=== PATIENT | male | born 1940 | race Caucasian/White ===

== ENCOUNTER → 2018-01-28 12:37 | Outpatient (CLI) | payer MEDICARE, OTHER, SELFPAY ==
--- NOTE | 2018-01-28 12:38 | DI.CT.S_ITS ---
PROCEDURE: CT CHEST WO CON INDICATIONS: 77-year-old male with stage II colon cancer. TECHNIQUE: Noncontrast 5 mm thick sections acquired from the pulmonary apices to the posterior costophrenic angles. 7 mm thick coronal and sagittal MIP reformats were then acquired. For radiation dose reduction, the following was used: automated exposure control, adjustment of mA and/or kV according to patient size. COMPARISON: [facility], CR, CHEST 2 VIEW, 12/01/2017, 4:50. [facility], CT, ABDOMEN/PELVIS WITH CONTRAST, 11/28/2017, 8:06. FINDINGS: Image quality: Excellent. Lungs and pleura: No acute air space opacities. Previously noted posterior right lung base pneumonia has resolved. No pleural effusions or pneumothorax. Central and peripheral airways are patent and normal in caliber. Mediastinum: Heart size is normal. No pericardial effusion. No mediastinal adenopathy by size criteria. Thoracic aorta and central pulmonary arteries are normal in size. Esophagus is normal in caliber. No hiatal hernia. Bones and chest wall: No suspicious bony lesions. No vertebral body compression fractures. There is mid and lower thoracic spine disc degeneration. There is moderate bilateral glenohumeral joint degeneration. No axillary or supraclavicular adenopathy by size criteria. There is asymmetric right supraspinatus and infraspinatus muscle atrophy. Thyroid gland is normal in overall size. Abdomen: Visualized upper abdominal solid organs and bowel loops appear normal in the absence of contrast. IMPRESSION: 1. No findings to suggest thoracic colon cancer metastases. 2. Interval resolution of posterior right lung base pneumonia. 3. Right supraspinatus and infraspinatus muscle atrophy, consistent with chronic full thickness rotator cuff tendon tears. Dictated by: Jeremiah Engle M.D. on 01/28/2018 at 13:21 Approved by: Jeremiah Engle M.D. on 01/28/2018 at 13:30
== END ==
PROVIDERS: Family Provider Internal Medicine; PCP Internal Medicine; Visit Provider Internal Medicine Hematology & Oncology
DX: C18.9 Malignant neoplasm of colon, unspecified (principal)
CPT/HCPCS: 71250

== ENCOUNTER → 2018-06-06 11:00 | Outpatient (CLI) | payer MEDICARE, OTHER, SELFPAY ==
[2018-06-06 11:18] LABS: Add Manual Diff / Slide Review NO; Basophils Percent Auto 0.8 % (0-2); Eosinophils Percent Auto 1.5 % (2-4); Hematocrit 42.4 % (41-53); Hemoglobin 13.9 g/dL (13.5-17.5); Lymphocytes Percent Auto 24.2 % (25-40); Mean Corpuscular HGB Conc 32.9 % (30-36); Mean Corpuscular Hemoglobin 29.8 PG (26-34); Mean Corpuscular Volume 90.7 fL (80-100); Monocytes Percent Auto 8.8 % (3-14); Neutrophils Absolute Auto 5200 /uL (3000-5900); Neutrophils Percent Auto 64.7 % (50-75); Platelet Count 208 X10^3/uL (150-400); Red Blood Cell Count 4.67 X10^6/uL (4.5-5.9); Red Cell Distribution Width 18.6 % (11.6-14.8)
[2018-06-06 11:27] LABS: Alanine Aminotransferase 36 IU/L (21-72); Albumin 4.4 g/dL (3.5-5.0); Albumin Globulin Ratio 1.7 (1.0-2.8); Alkaline Phosphatase 105 U/L (38-126); Aspartate Aminotransferase 38 IU/L (17-59); BUN Creatinine Ratio 23.8 (6-22); Bilirubin Total 0.6 mg/dL (0.2-1.3); Blood Urea Nitrogen 19 mg/dL (9-20); Calcium 9.1 mg/dL (8.4-10.2); Carbon Dioxide 26 mmol/L (22-32); Chloride 101 mmol/L (98-107); Estimated Glomerular Filt Rate > 60.0 mL/min (>60); Globulin 2.6 g/dL (1.7-4.1); Glucose 93 mg/dL (80-110); HEMOLYSIS < 15 (0-50); Potassium 4.9 mmol/L (3.4-5.1); Sodium 137 mmol/L (137-145)
[2018-06-06 11:38] LABS: HEMOLYSIS < 15 (0-50); Iron 54 ug/dL (49-181)
[2018-06-06 11:49] LABS: Percent Iron Saturation 15 % (20-50); Total Iron Binding Capacity 364 ug/dL (261-462); Transferrin 298 mg/dL (206-381)
[2018-06-06 11:58] LABS: Carcinoembryonic Antigen 2.2 ng/mL (0.1-3.0)
[2018-06-06 12:02] LABS: Ferritin 15.9 ng/mL (17.9-464)
== END ==
PROVIDERS: Family Provider Internal Medicine; PCP Internal Medicine
DX: C18.0 Malignant neoplasm of cecum (principal); D64.9 Anemia, unspecified; I48.91 Unspecified atrial fibrillation; Z86.718 Personal history of other venous thrombosis and embolism
CPT/HCPCS: 36415; 80053; 82378; 82728; 83540; 83550; 85025

== ENCOUNTER → 2018-10-29 14:18 | Outpatient (CLI) | payer MEDICARE, OTHER, SELFPAY ==
[2018-10-29 15:34] LABS: Blood Urea Nitrogen 20 mg/dL (9-20); Calcium 9.3 mg/dL (8.4-10.2); Carbon Dioxide 28 mmol/L (22-32); Chloride 100 mmol/L (98-107); Estimated Glomerular Filt Rate > 60.0 mL/min (>60); Glucose 125 mg/dL (80-110); HEMOLYSIS < 15 (0-50); Potassium 4.6 mmol/L (3.4-5.1); Sodium 136 mmol/L (137-145)
== END ==
PROVIDERS: Family Provider Internal Medicine; PCP Internal Medicine; Visit Provider Surgery
DX: C18.0 Malignant neoplasm of cecum (principal)
CPT/HCPCS: 36415; 80048

== ENCOUNTER → 2018-11-03 09:30 | Outpatient (CLI) | payer MEDICARE, OTHER, SELFPAY ==
--- NOTE | 2018-11-03 | DI.CT.S_ITS ---
PROCEDURE: CT CHEST ABD PEL W CON INDICATIONS: Malignant neoplasm of cecum TECHNIQUE: After the administration of oral and intravenous contrast, 5 mm thick sections acquired from the lung apices to the symphysis. 5 mm coronal and sagittal reformats were performed, with additional 7 mm coronal MIP reformats through the lungs. For radiation dose reduction, the following was used: automated exposure control, adjustment of mA and/or kV according to patient size. COMPARISON: [facility], CT, CT CHEST WO CON, 01/28/2018, 12:35. [facility], CT, ABDOMEN/PELVIS WITH CONTRAST, 11/28/2017, 8:06. [facility], CT, ABDOMEN/PELVIS WITH CONTRAST, 11/14/2017, 14:31. FINDINGS: Image quality: Excellent. CHEST: Lungs and pleura: No acute consolidation. Scattered subsegmental atelectasis and/or scarring. No pleural effusions or pneumothorax. Central and peripheral airways appear patent and normal in caliber. There is mild central bronchial wall thickening suggesting reactive airways disease versus nonspecific bronchitis Mediastinum: Heart size is enlarged. Coronary artery calcifications are present. No pericardial effusion. No mediastinal or hilar adenopathy by size criteria. Thoracic aorta and central pulmonary arteries are normal in size. Esophagus is normal in caliber. No hiatal hernia. Chest wall: No axillary or supraclavicular adenopathy by size criteria. Thyroid gland negative. ABDOMEN: Solid organs: In the inferior liver tip on image 74 series 2, ill-defined 1 x 2 cm hypodense region is seen, which appears new. Gallbladder unremarkable. Biliary system is non dilated. Redemonstration of hypodense or cystic region in the body of the pancreas currently 1.3 x 0.9 cm nonspecific although technically indolent pancreatic cystic neoplasm cannot be excluded recommend continued observation on subsequent studies. Spleen is normal in size and enhancement. No adrenal nodules. No hydronephrosis. Bilateral renal cortical scarring/atrophy.. Peritoneum and bowel: Bowel loops demonstrate normal wall thickness and caliber. No free fluid or air. Incidentally noted right sided bowel surgical anastomosis. Nodes and vessels: No retroperitoneal or mesenteric adenopathy by size criteria. Aorta and inferior vena cava are normal in size. Miscellaneous: Interval development of left paramedian mariaa-incisional hernia which contains bowel loops. Hernia sac measures approximately 6.8 x 2.8 cm cross-sectionally on axial image 85 series 2. No dilated bowel loops to suggest associated bowel obstruction.. PELVIS: Genitourinary: Bladder wall thickness is normal. Miscellaneous: No inguinal hernias or adenopathy. Bones: No suspicious bony lesions. No vertebral body compression fractures. Right hip arthroplasty. Diffuse spondylosis and facet arthropathy. 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 Consider further evaluation with dedicated hepatic protocol MRI with and without contrast, as level of clinical suspicion warrants. Alternatively, continued surveillance on subsequent CT examinations could be performed. Elsewhere, grossly stable examination Nonspecific cystic/hypodense lesion in the body the pancreas which is grossly unchanged. Interval development of left paramedian mariaa-incisional ventral hernia containing bowel loops. No definite evidence of associated bowel obstruction seen at this time. Dictated by: Joshua Montejo M.D. on 11/03/2018 at 11:33 Approved by: Joshua Montejo M.D. on 11/03/2018 at 11:45
== END ==
PROVIDERS: PCP Internal Medicine; Visit Provider Surgery
DX: C18.0 Malignant neoplasm of cecum (principal); K86.9 Disease of pancreas, unspecified; K43.2 Incisional hernia without obstruction or gangrene
CPT/HCPCS: 71260; 74177; Q9967

== ENCOUNTER 2018-12-01 07:42 | Day surgery (SDC) | payer MEDICARE, OTHER, SELFPAY ==
--- NOTE | 2018-12-01 | PATH_ITS ---
[facility] Accession Number: [id number] . 01 Material submitted: . sigmoid colon - SIGMOID POLYP . 02 Diagnosis: Sigmoid Colon Polyp, Biopsy: Hyperplastic polyp. Additional step sections examined. [facility]/12/02/2018 . 02 Electronically signed: . Reji Alejandre MD, PhD, Pathologist NPI- [id number] . 01 Gross description: . SIGMOID POLYP: Received in formalin is 1 fragment(s) of collins, soft tissue measuring 0.3 x 0.2 x 0.2 cm which is entirely submitted and submitted entirely in 1 cassette(s) /DMC /DMC . 02 Pathologist provided ICD-10: K63.5 . 02 CPT . 960798 Performed at: 01 [facility] [address] [place] [address], [place], [place] [id number] MD Winston Powers MD Phone: [phone] Performed at: 02 [facility] [address] [place], [place] [id number] MD Balbina Lazar MD Phone: [phone]
[2018-12-01] MEDS: SODIUM CHLORIDE 0.9% 1,000 ML 200 ML IV (08:01)
[2018-12-01 08:06] VITALS: BP 169/90; PULSE 80; RESP 16; TEMP 36.3; O2SAT 96; BMI 26.5
--- NOTE | 2018-12-01 08:07 | PM.PREOP ---
Pre-operative Note Interval Note History & Physical reviewed/Exam performed by Physician: Yes Changes to H&P: No ASA Class (for procedural sedation): II
[2018-12-01] MEDS: MIDAZOLAM 5 MG/5 ML VIAL IV (08:55)
[2018-12-01] MEDS: fentaNYL 250 MCG/5 ML INJ IV (08:56)
[2018-12-01 09:05] VITALS: BP 148/82; PULSE 61; RESP 19; O2SAT 97
--- NOTE | 2018-12-01 09:05 | P.OP.ENDO_ITS ---
Operative Date/Time/Diagnoses Date of procedure: 12/01/18 Time of procedure: 09:03 Pre-op diagnosis: History of adenocarcinoma of the colon Post-op diagnosis: same Procedure & Clinicians Study performed: Surveillance Colonoscopy Same procedure as scheduled: Yes Indications: Pt one year s/p emergent partial right colon resection for an obstructing lesion found to be colon cancer. Here for surveillance. Surgeon: Nidia Govea Procedure Notes SCOAP/Timeout: 827 Procedure in detail: After obtaining informed consent, the patient was brought to the GI suite and placed in the left lateral decubitus position on the ex amination table. After placement of appropriate monitors, the patient was given incremental doses of Versed and Fentanyl until an appropriate level of sedation was achieved. A time out was held per SCOAP protocol. A digital rectal examination was performed and did not reveal any masses or obstructing lesions; no external hemorrhoids are noted. The colonoscope was gently passed into the patient's anus and the entire colon navigated to the level of the ileocolonic anastomosis with minimal difficulty. Prep was adequate. Once in the cecum, the scope was slowly withdrawn being sure to go before and beyond all mucosal folds and prominences as able to get a thorough examination. No masses are noted but a 1-2 mm hyperplastic appearing polyp is noted in the sigmoid colon. It is removed with cold forceps for biopsy. No other significant findings are noted. At the level of the rectal vault, the scope was retroflexed and the internal anal canal was examined. The scope was straightened and air aspirated from the colon. The instrument was removed from the patient's body and the procedure was concluded. The patient was allowed to awaken from sedation without difficulty and taken to the post-anesthesia care unit in good condition. Scope withdrawal time: 12 min Sedation minutes: 27 Findings: polyp (1-2 mm, sigmoid (~30cm), hyperplastic appearance) Specimen(s): other (sigmoid polyp) Complications: none Impression: 1. sigmoid polyp- hyperplastic appearance Recommendations: Colonscopy in 1 year Follow up: as needed Disposition: PACU
[2018-12-01 09:10] VITALS: BP 128/82; PULSE 54; RESP 16; O2SAT 97
--- NOTE | 2018-12-01 09:45 | SUR.PHASEII ---
0983 Care was assumed; informed that the patient only needed to have his IV DC'd and then can go home. present, pt comfortable, pleasant, states I watched the whole thing. No questions/concerns.
== END 2018-12-01 09:43 | disposition home or self-care (01) ==
PROVIDERS: PCP Internal Medicine; Visit Provider Surgery
PROC: 0DJD8ZZ Inspection of Lower Intestinal Tract, Via Natural or Artificial Opening Endoscopic (ICD-10-PCS; CPT 45378; principal; 2018-12-01 08:45)
DX: Z85.038 Personal history of other malignant neoplasm of large intestine (principal); I48.91 Unspecified atrial fibrillation; Z79.01 Long term (current) use of anticoagulants; Z87.891 Personal history of nicotine dependence; D12.5 Benign neoplasm of sigmoid colon
CPT/HCPCS: 45380; 88305; 99152; 99153; J2250; J3010

== ENCOUNTER → 2019-03-09 08:15 | Outpatient (CLI) | payer MEDICARE, OTHER, SELFPAY ==
[2019-03-09 08:28] LABS: Add Manual Diff / Slide Review NO; Basophils Absolute Auto 0 /uL (0-100); Basophils Percent Auto 0.7 % (0-2); Eosinophils Absolute Auto 200 /uL (0-450); Eosinophils Percent Auto 2.3 % (2-4); Hematocrit 43.7 % (41-53); Hemoglobin 14.9 g/dL (13.5-17.5); Lymphocytes Absolute Auto 1900 /uL (1100-4500); Lymphocytes Percent Auto 28.4 % (25-40); Mean Corpuscular HGB Conc 34.1 % (30-36); Mean Corpuscular Volume 99.8 fL (80-100); Monocytes Absolute Auto 1000 /uL (0-900); Monocytes Percent Auto 15.4 % (3-14); Neutrophils Absolute Auto 3500 /uL (1500-7000); Neutrophils Percent Auto 53.2 % (50-75); Platelet Count 146 X10^3/uL (150-400); Red Blood Cell Count 4.37 X10^6/uL (4.5-5.9); Red Cell Distribution Width 13.4 % (11.6-14.8); White Blood Cell Count 6.6 X10^3/uL (4.5-11.0)
[2019-03-09 08:40] LABS: Alanine Aminotransferase 33 IU/L (21-72); Albumin 4.1 g/dL (3.5-5.0); Albumin Globulin Ratio 1.5 (1.0-2.8); Alkaline Phosphatase 75 U/L (38-126); Aspartate Aminotransferase 40 IU/L (17-59); BUN Creatinine Ratio 21.3 (6-22); Bilirubin Total 1.8 mg/dL (0.2-1.3); Blood Urea Nitrogen 17 mg/dL (9-20); Calcium 9.4 mg/dL (8.4-10.2); Carbon Dioxide 29 mmol/L (22-32); Chloride 102 mmol/L (98-107); Estimated Glomerular Filt Rate > 60.0 mL/min (>60); Globulin 2.7 g/dL (1.7-4.1); Glucose 75 mg/dL (80-110); HEMOLYSIS < 15 (0-50); Potassium 4.3 mmol/L (3.4-5.1); Sodium 138 mmol/L (137-145); Total Protein 6.8 g/dL (6.3-8.2)
[2019-03-09 09:11] LABS: Carcinoembryonic Antigen 2.1 ng/mL (0.1-3.0)
--- NOTE | 2019-03-09 10:20 | DI.CT.S_ITS ---
PROCEDURE: CT ABDOMEN PELVIS W CON INDICATIONS: f/u colon cancer TECHNIQUE: After the administration of oral and intravenous contrast, 5 mm thick sections acquired from the diaphragms to the symphysis. 5 mm thick coronal and sagittal reformats were performed. For radiation dose reduction, the following was used: automated exposure control, adjustment of mA and/or kV according to patient size. COMPARISON: [facility], CT, ABDOMEN/PELVIS WITH CONTRAST, 11/14/2017, 14:31. [facility], CT, ABDOMEN/PELVIS WITH CONTRAST, 11/28/2017, 8:06. [facility], CT, CT CHEST WO CON, 01/28/2018, 12:35. [facility], CT, CT CHEST ABD PEL W CON, 11/03/2018, 10:33. FINDINGS: Image quality: Excellent. ABDOMEN: Lung bases: Lung bases are clear. Heart size is normal. Solid organs: Liver is normal in size and enhancement. Gallbladder is normal. Biliary system is non-dilated. There is a subcentimeter cyst in the pancreatic body, unchanged compared to the last exam. There is a 1.5 x 0.8 cm cystic area in the pancreatic body, stable since 11/14/2017. Spleen is normal in size and enhancement. No adrenal nodules. Kidneys are normal in size and enhancement, without hydronephrosis. Peritoneum and bowel: Again noted is surgical suture in the left colon with ileal colonic anastomosis. Stomach, small bowel, and colon loops are normal in caliber and wall thickness. There is a large amount of stool in colon. No free fluid or air. Nodes and vessels: No retroperitoneal or mesenteric adenopathy. Aorta and inferior vena cava are normal in caliber. Miscellaneous: There is a wide-necked ventral hernia in the left lower anterior abdominal wall, unchanged in appearance. There is diastases of rectus abdominis sheeth. PELVIS: Genitourinary: Bladder wall thickness is normal. Prostate is prominent. Miscellaneous: No inguinal hernias or adenopathy. Bones: No suspicious bony lesions. No vertebral body compression fractures. There is levoscoliosis. Severe degenerative changes in lumbar spine. There is a right hip prosthesis. Metallic artifacts partially obscure the pelvis. IMPRESSION: 1. The hypodensity in the inferior liver described on the last exam is not definitely visualized on the current study. The current study was scanned during arterial phase, which could decreases sensitivity of the test. Please correlate with tumor markers. If there is high clinical concern for recurrent or metastatic disease, liver protocol MRI with and without contrast is recommended for followup evaluation. 2. Stable cystic area in the body of the pancreas. 3. A ventral hernia in the left lower intra-abdominal wall. Dictated by: Kolby Joseph M.D. on 03/09/2019 at 13:03 Approved by: Kolby Joseph M.D. on 03/10/2019 at 7:48
== END ==
PROVIDERS: PCP Internal Medicine
DX: C18.0 Malignant neoplasm of cecum (principal); K86.2 Cyst of pancreas; K43.9 Ventral hernia without obstruction or gangrene; M62.08 Separation of muscle (nontraumatic), other site; M47.816 Spondylosis without myelopathy or radiculopathy, lumbar region; Z98.0 Intestinal bypass and anastomosis status; Z96.641 Presence of right artificial hip joint
CPT/HCPCS: 36415; 74177; 80053; 82378; 85025

== ENCOUNTER → 2019-06-10 09:17 | Outpatient (CLI) | payer MEDICARE, OTHER, SELFPAY ==
--- NOTE | 2019-06-10 09:22 | DI.RAD.S_ITS ---
PROCEDURE: XR LUMBAR SPINE MIN 4V INDICATIONS: Progressive low back pain TECHNIQUE: 5 views of the lumbar spine acquired. COMPARISON: CR, SPINE LUMB 2 OR 3VW, 05/16/2016, 12:17. [facility], CT, ABDOMEN/PELVIS WITH CONTRAST, 11/28/2017, 8:06. FINDINGS: Bones: 5 nonrib-bearing vertebrae are present. Mild levo scoliosis centered at the L1-L2 level. Grade 1 spondylolisthesis L4-L5. Multilevel trace retrolisthesis. Multilevel disc degeneration, severe at the L2-L3 and L5-S1 levels. Moderate L4-L5 and L5-S1 facet joint arthropathy. No vertebral body compression fractures. No suspicious bony lesions. Oblique views demonstrate no interarticularis pars defects. Right hip arthroplasty incompletely visualized. Soft tissues: Overlying bowel gas pattern is normal. No suspicious soft tissue calcifications. Vascular calcifications indicate atherosclerosis. IMPRESSION: Multilevel degenerative change similar to prior exam dated 05/16/16. Dictated by: Agustin Pantoja [facility] Interpreted: Winston Dee MD on 06/10/2019 at 16:54 Approved by: Winston Dee M.D. on 06/10/2019 at 17:30
== END ==
PROVIDERS: Family Provider Internal Medicine; PCP Internal Medicine; Visit Provider Physical Medicine & Rehabilitation
DX: M47.27 Other spondylosis with radiculopathy, lumbosacral region (principal); M47.26 Other spondylosis with radiculopathy, lumbar region; M54.5 Low back pain
CPT/HCPCS: 72110

== ENCOUNTER → 2019-06-18 15:34 | Outpatient (ROUT) | payer MEDICARE, OTHER, SELFPAY ==
[2019-06-18 16:36] LABS: Cholesterol 146 mg/dL (140-199); HDL Cholesterol 57 mg/dL (40-60); LDL Cholesterol Calculated 76 mg/dL (<100); Triglycerides 65 mg/dL (35-150)
[2019-06-19 14:07] LABS: Prostate Specific Antigen Scrn 1.72 ng/mL (0.1-4.0)
== END ==
PROVIDERS: Family Provider Internal Medicine; PCP Internal Medicine; Visit Provider Internal Medicine
DX: Z12.5 Encounter for screening for malignant neoplasm of prostate (principal); E78.5 Hyperlipidemia, unspecified
CPT/HCPCS: 80061; G0103

== ENCOUNTER → 2019-06-18 15:48 | Outpatient (CLI) | payer MEDICARE, OTHER, SELFPAY ==
--- NOTE | 2019-06-18 15:49 | DI.MRI.S_ITS ---
PROCEDURE: MR LUMBAR SPINE WO CON INDICATIONS: Progressive low back pain TECHNIQUE: Noncontrast sagittal T1 spin echo and T2 fast echo, sagittal STIR, axial T1 and T2 fast spin echo through the lumbar spine. In cases with scoliosis, additional coronal T2 fast spin echo may be performed. COMPARISON: [facility], MR, LUMBAR SPINE W/O CONTRAST, 11/13/2008, 8:01. [facility], CT, CT ABDOMEN PELVIS W CON, 03/09/2019, 9:36. [facility], CT, CT CHEST ABD PEL W CON, 11/03/2018, 10:33. [facility], CR, XR LUMBAR SPINE MIN 4V, 06/10/2019, 9:41. FINDINGS: Image quality: Excellent. Alignment and Curvature: Mild to moderate levoconvex scoliotic curvature is noted. There is grade 1 anterolisthesis seen at L4-L5. Minimal to mild retrolisthesis is seen at L1-L2, L2-L3, L3-L4, and L5-S1. Bone Marrow: Marrow is of normal overall signal. No acute vertebral body compression fractures. Spinal Cord: Conus medullaris terminates at the L1 level. Visualized cord demonstrates normal signal and size. Paraspinous Soft Tissues: No paravertebral masses. T12-L1: Bridging endplate osteophytes are seen anteriorly and on the right. Reactive marrow endplate changes are seen anteriorly and on the right, which are hypointense on T1-weighted imaging and hyperintense on T2 weighted imaging, which is most consistent with edema (Modic type I changes). No significant neural foraminal or central canal narrowing can be seen. L1-L2: The disc height is well-preserved. Loss of disc signal is seen at this level. Bridging anterior and right-sided endplate osteophytes are seen. Mild disc bulge is seen. No significant central canal narrowing is seen. L2-L3: Bridging endplate osteophytes are seen anteriorly and on the right side. Moderate to severe loss of disc height and disc signal are seen on the right. Posteriorly projected endplate osteophytes are seen. Moderate facet joint hypertrophy is seen. Moderate generalized disc bulge is seen. There is at least moderate bilateral neural foraminal narrowing seen. Moderate central canal narrowing is seen. L3-L4: At least moderate loss of disc height and disc signal can be seen posteriorly. Reactive marrow endplate changes are seen, which are hyperintense on T1-weighted and T2-weighted imaging and most consistent with fatty metaplasia (Modic type II changes). Moderate to prominent disc bulge is seen. Moderate to prominent facet hypertrophy is seen. There is moderate to severe bilateral neural narrowing seen. There is a degree of compression seen upon the exiting nerve roots. Moderate to severe central canal narrowing is seen L4-L5: Mild loss of disc height is seen. Loss of disc signal is seen. Moderate generalized disc bulge is seen. Prominent facet hypertrophy is seen. Moderate bilateral neural foraminal narrowing is seen at the level. There is at least moderate central canal narrowing seen. L5-S1: Moderate to severe loss of disc height signal are seen. Disc bulge is seen, with a central/left disc protrusion present. There is moderate to severe left-sided neural foraminal narrowing seen, with mild compression upon the exiting left L5 nerve root. There is moderate right-sided neural foraminal narrowing seen at this level. Mild to moderate central canal narrowing is seen. IMPRESSION: Levoconvex scoliosis and multiple levels of degenerative change are seen. The degenerative changes have progressed compared to 2011. Multiple levels of bridging endplate osteophytes are seen. Dictated by: Jethro Hercules M.D. on 06/18/2019 at 15:43 Approved by: Jethro Hercules M.D. on 06/18/2019 at 15:57
== END ==
PROVIDERS: PCP Internal Medicine; Visit Provider Physical Medicine & Rehabilitation
DX: M47.816 Spondylosis without myelopathy or radiculopathy, lumbar region (principal); M47.817 Spondylosis without myelopathy or radiculopathy, lumbosacral region; M54.5 Low back pain; M41.9 Scoliosis, unspecified; M43.16 Spondylolisthesis, lumbar region; M43.17 Spondylolisthesis, lumbosacral region
CPT/HCPCS: 72148

== ENCOUNTER 2019-07-10 07:33 | Outpatient (CLI) | payer MEDICARE, OTHER, SELFPAY ==
--- NOTE | 2019-07-10 07:34 | DI.RAD.S_ITS ---
PROCEDURE: PAIN L/S FACET INJ/BLK 1ST LUISA COMPARISON: None. INDICATIONS: SPONDYLOSIS FINDINGS: Bilateral facet joint needle tip localization has been performed at the L4-5 and L5-S1 levels, for steroid injection. IMPRESSION: Successful bilateral to level (4 total) needle tip localizations for facet steroid injection. Dictated by: Saul Drake M.D. on 07/10/2019 at 9:23 Approved by: Saul Drake M.D. on 07/10/2019 at 9:24
[2019-07-10 08:00] VITALS: BP 145/80; PULSE 68; RESP 16; TEMP 36.6; O2SAT 98
[2019-07-10 08:39] VITALS: BP 167/103; PULSE 66; RESP 16; O2SAT 100
[2019-07-10] MEDS: MIDAZOLAM 5 MG/5 ML VIAL IV (08:41)
[2019-07-10] MEDS: fentaNYL 100 MCG/2 ML INJ 50 MCG IV (08:41)
[2019-07-10] MEDS: BETAMETHASONE 30 MG/5 ML MDV 12 MG INJ (08:43)
[2019-07-10] MEDS: IOPAMIDOL 15 ML VIAL 3 ML INJ (08:43)
[2019-07-10] MEDS: LIDOCAINE 1% 20 ML 10 ML INJ (08:43)
[2019-07-10] MEDS: BUPIVACAINE 0.5% (PF) VIAL 2 ML INJ (08:43)
[2019-07-10 08:44] VITALS: BP 149/87; PULSE 59; RESP 16; O2SAT 100
[2019-07-10 08:47] VITALS: BP 155/94; PULSE 60; RESP 16; O2SAT 100
--- NOTE | 2019-07-10 08:48 | PC.NURSE ---
ASSISTING PT OFF TABLE AND TRANSPORTING TO POST PROC AREA IN STABLE CONDITION.
[2019-07-10 08:55] VITALS: BP 126/91; PULSE 71; RESP 16; O2SAT 98
--- NOTE | 2019-07-10 08:55 | P.PCN_ITS ---
Procedures Date/Time Date of procedure: 07/10/19 Time of procedure: 08:55 General Procedure description: PREOP DIAGNOSIS 1. FACET ARTHROPATHY 2. AXIAL LBP 3. MULTILEVEL DDD POST OP DIAGNOSIS 1. FACET ARTHROPATHY 2. AXIAL LBP 3. MULTILEVEL DDD PROCEDURES 1. FLUORSCOPICALLY GUIDED CONTRAST CONTROLLED FACET JOINT INJECTIONS BILATERAL L4/5, L5/S1 PHYSICIAN: Joce Curtis, DO INDICATIONS Hugo is referred by Dr. Mejias for treatment of Axial LBP FINDINGS Multilevel Facet Arthropathy with Clinically significant axial LBP DESCRIPTION OF PROCEDURE Fluoroscopically guided, contrast-controlled bilateral L4/5, L5/S1 facet joint injections. Following review of allergy and review of potential side effects and complications, including, but not necessarily limited to, infection, allergic reaction, local tissue breakdown, stroke, temporary or permanent nerve injury, paralysis, and possible , the patient indicated that the patient understood and agreed to proceed. An informed consent document was signed by the patient, witnessed by a nurse, and placed in the patient's chart. Additionally, other treatment options including medications, modalities, and physical therapy were reviewed with the patient. After review of previous anaesthesic history and IV conscious sedation the patient was deemed safe to proceed with todays procedure with IV conscious sedation as ASA class II designation. Safety time-out was performed to confirm patient ID, procedure to be performed and site of procedure. IV sedation was accomplished with a combination of 2mg of Versed and 50mcg of Fentanyl was administered by the RN after DO order, titrated to patient comfort during the course of the procedure while the patient remained responsive to all verbal commands In the prone position, following sterile prep and drape of the lumbar region, the posterior aspect of the L4/5, L5/S1 facet joints were identified fluoroscopically. The skin was anesthetized via a 25-gauge 1.5-inch needle with 1% lidocaine solution into the corresponding facet joints. At this point, a 22- gauge 3.5-inch spinal needle was atraumatically introduced and advanced under fluoroscopic guidance into the corresponding facet joints. Following negative a spiration, injections of approximately 0.2-cc of Isovue 200 confirmed interarticular placement without vascular uptake. The identical procedure was then performed at the L4/5, L5/S1 facet joints on the left. Radiological data, including multiple fluoroscopic views of the lumbosacral spine, reveal a spinal needle at the L4/5, L5/S1 facet joints bilaterally. Subsequent views show flow of contrast material both superiorly and inferiorly within the joint space without vascular or intrathecal uptake. At this point, a total of 0.5 cc including a mixture of 0.25cc Marcaine and 0.25cc betamethasone was injected without complication into each of the corresponding facet joints. The patient tolerated the procedure well without signs or symptoms of complications prior to transfer to the recovery area continued monitoring without incident. The patient was then transferred to the recovery area where they were observed for an appropriate period of time after the injection. The patient reported a VAS score of 7 prior to the procedure and a post- procedure VAS of 0. Total Fluoroscopy Time: 20.3 seconds Total Conscious Sedation Time: 24min POST OP INSTRUCTIONS The patient was provided a Pain Log to continue to record their response to the target-specific procedure prior to follow-up visit with their referring physician. Additionally, specific post-injection care instructions and a contact number to our office were provided if concerns arise regarding possible complications associated with the procedure are suspected. Joce Curtis DO Complications: none
[2019-07-10 09:04] VITALS: BP 130/91; PULSE 66; RESP 16; O2SAT 97
--- NOTE | 2019-07-10 11:56 | PC.NURSE ---
DI note: Received patient via WC, awake, alert, and stable. Up out of wheelchair to chair.
== END 2019-07-10 09:10 | disposition home or self-care (01) ==
LOC: RAD 07:34
PROVIDERS: PCP Internal Medicine; Visit Provider Physical Medicine & Rehabilitation
DX: M47.816 Spondylosis without myelopathy or radiculopathy, lumbar region (principal); M47.817 Spondylosis without myelopathy or radiculopathy, lumbosacral region; M54.5 Low back pain; M51.36 Other intervertebral disc degeneration, lumbar region; M51.37 Other intervertebral disc degeneration, lumbosacral region
CPT/HCPCS: 64493; 64494; 99152; J0702; J2250; J3010

== ENCOUNTER → 2020-02-22 08:27 | Outpatient (CLI) | payer MEDICARE, OTHER, SELFPAY ==
--- NOTE | 2020-02-22 08:29 | DI.RAD.S_ITS ---
PROCEDURE: XR SHOULDER LT MIN 2V INDICATIONS: left shoulder pain TECHNIQUE: 3 views of the shoulder were acquired. COMPARISON: [facility], CR, CHEST 2 VIEW, 12/01/2017, 4:50. [facility], CT, CT CHEST ABD PEL W CON, 11/03/2018, 10:33. FINDINGS: Bones: No acute fractures or dislocations. Abnormal contour of the posterior lateral humeral head which raises the possibility of prior Hill-Sachs lesion. Small ossicle superior to the glenoid. Abnormal contour of the inferior medial humeral head which appears similar to 2018 and is likely degenerative in nature. Degenerative hypertrophy of the acromioclavicular joint. No suspicious bony lesions. Visualized ribs appear intact. Soft tissues: No suspicious soft tissue calcifications. IMPRESSION: No acute osseous abnormality. Moderate degenerative change. Question of prior Hill-Sachs lesion. Dictated by: Ismael Dougherty M.D. on 02/22/2020 at 8:43 Approved by: Ismael Dougherty M.D. on 02/22/2020 at 8:54
== END ==
PROVIDERS: PCP Internal Medicine; Referring Provider Physical Medicine & Rehabilitation; Visit Provider Physical Medicine & Rehabilitation
DX: M25.512 Pain in left shoulder (principal); M19.012 Primary osteoarthritis, left shoulder; M19.011 Primary osteoarthritis, right shoulder; M47.819 Spondylosis without myelopathy or radiculopathy, site unspecified; Z79.01 Long term (current) use of anticoagulants; Z98.1 Arthrodesis status; Z86.79 Personal history of other diseases of the circulatory system
CPT/HCPCS: 20611; 73030; 99213; J1040

== ENCOUNTER → 2020-04-25 10:20 | Outpatient (CLI) | payer MEDICARE, OTHER, SELFPAY ==
[2020-04-25 10:53] LABS: Add Manual Diff / Slide Review NO; Basophils Absolute Auto 0 /uL (0-100); Basophils Percent Auto 0.5 % (0-2); Eosinophils Absolute Auto 100 /uL (0-450); Hematocrit 41.8 % (41-53); Hemoglobin 14.4 g/dL (13.5-17.5); Lymphocytes Absolute Auto 1600 /uL (1100-4500); Lymphocytes Percent Auto 27.6 % (25-40); Mean Corpuscular HGB Conc 34.5 % (30-36); Mean Corpuscular Hemoglobin 35.2 PG (26-34); Mean Corpuscular Volume 102.2 fL (80-100); Monocytes Absolute Auto 600 /uL (0-900); Monocytes Percent Auto 10.1 % (3-14); Neutrophils Absolute Auto 3600 /uL (1500-7000); Neutrophils Percent Auto 60.8 % (50-75); Platelet Count 159 X10^3/uL (150-400); Red Blood Cell Count 4.09 X10^6/uL (4.5-5.9); White Blood Cell Count 5.9 X10^3/uL (4.5-11.0)
[2020-04-25 11:25] LABS: Alanine Aminotransferase 35 IU/L (<50); Albumin Globulin Ratio 1.5 (1.0-2.8); Alkaline Phosphatase 110 U/L (38-126); Aspartate Aminotransferase 44 IU/L (17-59); BUN Creatinine Ratio 22.5 (6-22); Bilirubin Total 1.2 mg/dL (0.2-1.3); Blood Urea Nitrogen 18 mg/dL (9-20); Calcium 9.2 mg/dL (8.4-10.2); Carbon Dioxide 28 mmol/L (22-32); Chloride 103 mmol/L (98-107); Estimated Glomerular Filt Rate > 60.0 mL/min (>60); Globulin 2.7 g/dL (1.7-4.1); Glucose 95 mg/dL (80-110); HEMOLYSIS < 15 (0-50); Potassium 5.2 mmol/L (3.4-5.1); Sodium 136 mmol/L (137-145); Total Protein 6.7 g/dL (6.3-8.2)
--- NOTE | 2020-04-25 11:33 | DI.CT.S_ITS ---
PROCEDURE: CT CHEST ABD PEL W CON INDICATIONS: Surveillance colon CA TECHNIQUE: After the administration of oral and intravenous contrast, 5 mm thick sections acquired from the lung apices to the symphysis. 5 mm coronal and sagittal reformats were performed, with additional 7 mm coronal MIP reformats through the lungs. For radiation dose reduction, the following was used: automated exposure control, adjustment of mA and/or kV according to patient size. COMPARISON: [facility], CT, CT CHEST ABD PEL W CON, 11/03/2018, 10:33. FINDINGS: Image quality: Excellent. CHEST: Scattered subsegmental atelectasis and/or scarring. No focal consolidation. No pleural effusions or pneumothorax. Central and peripheral airways appear patent and normal in caliber. Mediastinum: Heart size is normal. Coronary artery calcifications are present. Trace pericardial effusion. No mediastinal or hilar adenopathy by size criteria. Thoracic aorta and central pulmonary arteries are normal in size. Esophagus is normal in caliber. No hiatal hernia. Chest wall: No axillary or supraclavicular adenopathy by size criteria. ABDOMEN: Solid organs: Liver is normal in size and enhancement. Gallbladder negative. Biliary system is non dilated. Pancreas enhances normally. Spleen is normal in size and enhancement. No adrenal nodules. Kidneys demonstrate normal size and enhancement, without hydronephrosis. Surgical bowel anastomosis seen in the right lower quadrant. Mild stool noted. Scattered air-fluid levels although no definite transition point is seen. No free fluid or air. Nodes and vessels: No retroperitoneal or mesenteric adenopathy by size criteria. Aorta and inferior vena cava are normal in size. Large ventral bowel containing hernia. PELVIS: Genitourinary: Bladder wall thickness is normal. Miscellaneous: No inguinal hernias or adenopathy. Bones: No vertebral body compression fracture. Spondylytic changes and facet arthropathy. IMPRESSION: No specific evidence of progressive or active metastatic disease identified. Additional chronic and incidental findings as above. Dictated by: Joshua Montejo M.D. on 04/25/2020 at 15:38 Approved by: Joshua Montejo M.D. on 04/25/2020 at 15:48
[2020-04-25 11:54] LABS: Carcinoembryonic Antigen 2.2 ng/mL (0.1-3.0)
== END ==
PROVIDERS: PCP Internal Medicine; Referring Provider Internal Medicine Hematology & Oncology; Visit Provider Internal Medicine Hematology & Oncology
DX: Z08 Encounter for follow-up examination after completed treatment for malignant neoplasm; Z85.038 Personal history of other malignant neoplasm of large intestine; Z98.0 Intestinal bypass and anastomosis status; I25.10 Atherosclerotic heart disease of native coronary artery without angina pectoris; K43.9 Ventral hernia without obstruction or gangrene
CPT/HCPCS: 36415; 71260; 74177; 80053; 82378; 85025; Q9967

== ENCOUNTER → 2020-08-30 13:44 | Outpatient (CLI) | payer MEDICARE, OTHER, SELFPAY ==
[2020-08-30] MEDS: COVID-19 VACC #1, MRNA(MOD) 100 MCG/0.5 ML VIAL IM (13:47)
== END ==
PROVIDERS: PCP Internal Medicine; Visit Provider Internal Medicine
DX: Z23 Encounter for immunization (principal)
CPT/HCPCS: 0011A; 91301

== ENCOUNTER → 2020-09-27 13:34 | Outpatient (CLI) | payer MEDICARE, OTHER, SELFPAY ==
[2020-09-27] MEDS: COVID-19 VACC #2, MRNA(MOD) 100 MCG/0.5 ML VIAL IM (13:40)
== END ==
PROVIDERS: PCP Internal Medicine; Visit Provider Internal Medicine
DX: Z23 Encounter for immunization (principal)
CPT/HCPCS: 0012A; 91301

== ENCOUNTER 2021-04-27 06:37 | Emergency (ER) | payer MEDICARE, OTHER, SELFPAY ==
[2021-04-27] VITALS (7 sets, daily range): BP systolic 153–175; BP diastolic 80–90; PULSE 61–70; RESP 16–25; TEMP 36.2–36.3; O2SAT 94–100; BMI 27.8
--- NOTE | 2021-04-27 07:43 | DI.MRI.S_ITS ---
PROCEDURE: MR LUMBAR SPINE WO/W CON INDICATIONS: new numbness weakness B LE - fall 2 days ago on coumadin. TECHNIQUE: Noncontrast sagittal T1 spin echo and T2 fast spin echo, sagittal STIR, axial T1 and T2 fast spin echo through the lumbar spine. In cases with scoliosis, additional coronal T2 fast spin echo may be performed. After the administration of contrast, sagittal and axial T1 spin echo with fat saturation through the lumbar spine. COMPARISON: [facility], CT, CT CHEST ABD PEL W CON, 04/25/2020, 11:30. [facility], CR, XR LUMBAR SPINE MIN 4V, 06/10/2019, 9:41. [facility], MR, MR LUMBAR SPINE WO CON, 06/18/2019, 15:59. FINDINGS: Image quality: Excellent. Alignment and curvature: Again noted is levo scoliotic curvature. As before, trace degenerative retrolisthesis of L1 on L2, L of L2 on L3, and of L3 on L4. There is mild degenerative anterolisthesis of L4 on L5 measuring approximately 6 mm. There is trace degenerative retrolisthesis of L5 on S1. Marrow: Marrow is of normal overall signal. No acute vertebral body compression fractures. No suspicious marrow enhancement. Spinal cord: Conus medullaris terminates at the L1 level. Visualized spinal cord demonstrates normal signal, without suspicious enhancement. Paraspinous soft tissues: No paravertebral masses or abnormal enhancement. T12-L1: No canal stenosis or foraminal stenosis. L1-L2: Mild disc bulge. Facet hypertrophy. No canal stenosis. Mild bilateral foraminal stenosis. L2-L3: Severe disc height loss. Posterior disc plus osteophyte. Facet and ligament hypertrophy. Unchanged moderate canal stenosis. Very large bulky right lateral bridging osteophyte which likely impinges on the right L3 nerve root far laterally. There is also moderate bilateral foraminal narrowing. With flattening deformity on the exiting bilateral L2 nerve roots. Findings are stable. L3-L4: Findings are stable. Posterior disc bulge. Facet and ligament hypertrophy. Prominent right lateral bridging osteophyte. Moderate to severe canal stenosis. Moderate to severe bilateral foraminal narrowing with flattening deformity on the exiting bilateral L3 nerve roots. L4-L5: Exuberant facet hypertrophy. 6 mm anterolisthesis of L4 on L5. Diffuse disc bulge. Axial plane underestimates the degree of canal stenosis which is likely moderate to severe. Moderate bilateral foraminal narrowing. L5-S1: Again noted is diffuse disc bulge with left paracentral disc protrusion. Mild central canal stenosis. Facet hypertrophy. [id number] right foraminal narrowing and moderate left foraminal narrowing with mild flattening deformity on the exiting left L5 nerve root. IMPRESSION: 1. There is no acute bony abnormality noted of the lumbar spine. No acute compression fractures. 2. Extensive chronic degenerative change, including levocurvature, right-sided bulky bridging osteophytes, and multilevel facet arthropathy. Facet arthropathy is impressive at L3-L4 and L4-L5. 3. Canal stenosis is moderate at L2-L3, moderate to severe at L3-L4, and moderate to severe at L4-L5. 4. Multilevel foraminal narrowing as described above. Dictated by: Tereso Austin M.D. on 04/27/2021 at 8:50 Approved by: Tereso Austin M.D. on 04/27/2021 at 9:14
--- NOTE | 2021-04-27 07:46 | ED.FALL ---
HPI - Fall General Chief Complaint: Fall Stated Complaint: Numbness in feet Time Seen by Provider: 04/27/21 07:08 Source: patient and EMS Mode of arrival: EMS History of Present Illness HPI Narrative: Gentleman with a history of for which he is anticoagulated on Coumadin, colon cancer with prior intussusception requiring surgery, chronic left shoulder pain who stumbled and fell 48 hours ago landing on his right buttock. Has what feels like a large deep hematoma that was significantly painful seems to be improving somewhat he woke up this morning and found that he could not feel the bottom of his feet (could not feel the floor when he stepped down) and had significant weakness in both legs with difficulty walking. He had no such symptoms when he went to bed last night. He denies fever, cough, chills, abdominal pain, vomiting, dieting, headache, syncope, tachycardia or headache. Related Data Home Medications Medication Instructions Recorded Confirmed [PROBIOTIC] 1 cap PO QDAY #0 11/14/17 04/13/21 atorvastatin 10 mg tablet (Lipitor) 10 mg PO HS #0 11/14/17 04/13/21 tadalafil 10 mg tablet (Cialis) 10 mg PO PRN PRN #0 11/14/17 04/13/21 warfarin 10 mg tablet (Coumadin) 10 mg PO SEEINSTR #0 11/14/17 04/13/21 sennosides 8.6 mg tablet (Senokot) 8.6 mg PO QDAY PRN 12/25/17 04/13/21 tamsulosin 0.4 mg capsule (Flomax) 0.4 mg PO DAILY 09/09/20 04/13/21 Allergies Allergy/AdvReac Type Severity Reaction Status Date / Time No Known Drug Allergies Allergy Verified 04/13/21 13:42 Review of Systems Review of Systems Narrative: Remainder of complete review of systems is otherwise unremarkable except for that included in the HPI. Patient History Medical History (Updated 04/27/21 @ 10:47 by Nikkie Damian MD) Afib Chronic anticoagulation DJD of both shoulders Facet arthropathy, multilevel History of chronic atrial fibrillation History of colon cancer (~2018) Left shoulder pain Liver lesion Lumbosacral spondylosis with radiculopathy Surgical History H/O hernia repair H/O total hip arthroplasty History of colectomy (~2018) History of colonoscopy Status post cervical spinal fusion Family History Father Hypertension Stroke Mother Heart disease Social History household members: spouse Smoking Status: Former smoker Smoking Status: Former smoker alcohol intake frequency: 0-2 drinks per day Substance Use Type: does not use Exam Narrative Exam Narrative: General: Healthy appearing, in no acute distress. Able to give a complete and coherent history. Well-nourished well-developed HEENT: Moist mucous membranes, normal sclera with reactive pupils, Neck: No JVD, supple Respiratory: Lungs are clear to auscultation, no wheezing no rales no rhonchi. Full and symmetrical air movement Cardiac: Irregular rate and rhythm no murmurs no bruits Abdomen: Soft, nontender, good bowel tones, no flank pain Skin: Warm and dry, no rashes Neurologic: Decreased sensation from the ankles down with almost no sensation from midfoot to the toes bilaterally. Normal reflexes at the patellas and ankles bilaterally. Describes bilateral heaviness that with simple bedside testing no muscle strength differences in the lower extremities. Spine: No tenderness along the thoracic or lumbar spine. Buttock: Right buttock has a large deep hematoma with very firm mildly tender right buttock. Deep enough that there is minimal bruising at this point. Extremities: No bony tenderness, well perfused Psych: Cooperative, appropriate insight and affect Initial Vital Signs Initial Vital Signs: Vital Signs Pulse Rate 70 04/27/21 06:41 Respiratory Rate 18 04/27/21 06:41 Pulse Oximetry 94 04/27/21 06:41 Course Orders Ordered: ED Orders 04/27/21 07:43 MR lumbar spine wo/w con Stat 04/27/21 07:50 Complete Blood Count AUTO DIFF Stat Comprehensive Metabolic Panel Stat Prothrombin Time INR Stat Vital Signs Vital signs: Vital Signs - 8 hr 04/27/21 06:41 04/27/21 06:44 04/27/21 07:00 Temperature 97.2 F L Pulse Rate 70 64 68 Respiratory Rate 18 17 23 Blood Pressure 165/80 H Pulse Oximetry 94 99 98 04/27/21 07:01 04/27/21 07:30 04/27/21 07:52 Temperature Pulse Rate 63 70 65 Respiratory Rate 19 25 H 24 Blood Pressure 153/80 H 168/90 H 175/89 H Pulse Oximetry 98 99 99 MDM - Fall Lab Data Result diagrams: 04/27/21 07:50 04/27/21 07:50 Labs: Lab Results 04/27/21 04/27/21 04/27/21 Range/Units 07:50 07:50 07:50 WBC 6.9 (4.5-11.0) X10^3/uL RBC 3.54 L (4.5-5.9) X10^6/uL Hgb 12.2 L (13.5-17.5) g/dL Hct 36.4 L (41-53) % MCV 103.0 H (80-100) fL MCH 34.5 H (26-34) PG MCHC 33.5 (30-36) % RDW 13.8 (11.6-14.8) % Plt Count 130 L (150-400) X10^3/uL Neut % (Auto) 73.3 (50-75) % Lymph % (Auto) 14.3 L (25-40) % Cost[place] % (Auto) 11.7 (3-14) % Eos % (Auto) 0.4 L (2-4) % Baso % (Auto) 0.3 (0-2) % Neut # (Auto) 5100 (4297-6495) /uL Lymph # (Auto) 1000 L (2475-3229) /uL [place] # (Auto) 800 (0-900) /uL Eos # (Auto) 0 (0-450) /uL Baso # (Auto) 0 (0-100) /uL PT 49.8 H (10.1-12.7) SECONDS INR 4.3 H (0.9-1.3) Sodium 136 L (137-145) mmol/L Potassium 4.3 (3.4-5.1) mmol/L Chloride 105 (98-107) mmol/L Carbon Dioxide 28 (22-32) mmol/L BUN 14 (9-20) mg/dL Creatinine 0.57 L (0.66-1.25) mg/dL Estimated GFR > 60.0 (>60) mL/min BUN/Creatinine Ratio 24.6 H (6-22) Glucose 111 H (80-110) mg/dL Calcium 8.8 (8.4-10.2) mg/dL Total Bilirubin 0.8 (0.2-1.3) mg/dL AST 48 (17-59) IU/L ALT 25 (<50) IU/L Alkaline Phosphatase 96 (38-126) U/L Total Protein 6.0 L (6.3-8.2) g/dL Albumin 3.7 (3.5-5.0) g/dL Globulin 2.3 (1.7-4.1) g/dL Albumin/Globulin Ratio 1.6 (1.0-2.8) Imaging Data MR Lumbar spine: Radiologist's Impression: FINDINGS: Image quality: Excellent. Alignment and curvature: Again noted is levo scoliotic curvature. As before, trace degenerative retrolisthesis of L1 on L2, L of L2 on L3, and of L3 on L4. There is mild degenerative anterolisthesis of L4 on L5 measuring approximately 6 mm. There is trace degenerative retrolisthesis of L5 on S1. Marrow: Marrow is of normal overall signal. No acute vertebral body compression fractures. No suspicious marrow enhancement. Spinal cord: Conus medullaris terminates at the L1 level. Visualized spinal cord demonstrates normal signal, without suspicious enhancement. Paraspinous soft tissues: No paravertebral masses or abnormal enhancement. T12-L1: No canal stenosis or foraminal stenosis. L1-L2: Mild disc bulge. Facet hypertrophy. No canal stenosis. Mild bilateral foraminal stenosis. L2-L3: Severe disc height loss. Posterior disc plus osteophyte. Facet and ligament hypertrophy. Unchanged moderate canal stenosis. Very large bulky right lateral bridging osteophyte which likely impinges on the right L3 nerve root far laterally. There is also moderate bilateral foraminal narrowing. With flattening deformity on the exiting bilateral L2 nerve roots. Findings are stable. L3-L4: Findings are stable. Posterior disc bulge. Facet and ligament hypertrophy. Prominent right lateral bridging osteophyte. Moderate to severe canal stenosis. Moderate to severe bilateral foraminal narrowing with flattening deformity on the exiting bilateral L3 nerve roots. L4-L5: Exuberant facet hypertrophy. 6 mm anterolisthesis of L4 on L5. Diffuse disc bulge. Axial plane underestimates the degree of canal stenosis which is likely moderate to severe. Moderate bilateral foraminal narrowing. L5-S1: Again noted is diffuse disc bulge with left paracentral disc protrusion. Mild central canal stenosis. Facet hypertrophy. [id number] right foraminal narrowing and moderate left foraminal narrowing with mild flattening deformity on the exiting left L5 nerve root. IMPRESSION: 1. There is no acute bony abnormality noted of the lumbar spine. No acute compression fractures. 2. Extensive chronic degenerative change, including levocurvature, right-sided bulky bridging osteophytes, and multilevel facet arthropathy. Facet arthropathy is impressive at L3-L4 and L4-L5. 3. Canal stenosis is moderate at L2-L3, moderate to severe at L3-L4, and moderate to severe at L4-L5. 4. Multilevel foraminal narrowing as described above. Dictated by: Tereso Austin M.D. on 04/27/2021 at 8:50 MDM Narrative Medical decision making narrative: 81-year-old gentleman on Coumadin with a fall 48 hours ago large hematoma deep in the gluteus right side with acute onset bilateral peripheral numbness and bilateral lower extremity weakness with concern for epidural bleed or spinal cord bleed. MRI is ordered as well as labs and PT INR. 1034 no evidence of acute spinal cord lesion or spinal hematoma to explain the acute lower extremity changes. He does have significant spinal stenosis and may be the positional changes that he has been using to accommodate the pain in the right buttock because of the large hematoma in that area have irritated his back in her causing his symptoms. At this point there is no evidence of acute surgical emergency or need for hospitalization. INR currently is elevated at. Will ask him to hold his Coumadin for 3 days with repeat INR level on Saturday. Discharge Plan Departure Patient Disposition: Home Clinical Impression: Elevated INR Lumbar spinal stenosis Qualifiers: Neurogenic claudication status: without neurogenic claudication Qualified Code(s): M48.061 - Spinal stenosis, lumbar region without neurogenic claudication Traumatic hematoma of buttock Qualifiers: Encounter type: initial encounter Qualified Code(s): S30.0XXA - Contusion of lower back and pelvis, initial encounter Peripheral neuropathy Qualifiers: Peripheral neuropathy type: polyneuropathy, unspecified Qualified Code(s): G62.9 - Polyneuropathy, unspecified Instructions: DI for Hematoma (Bruise), DI for Spinal Stenosis Activity Restrictions/Additional Instructions: Thank you for coming in today It looks like he lost about 2 units of blood into your right buttock. This will heal itself and does not appear to be still bleeding. You do not have any bleeding or injury to your spine or spinal cord to cause the numbness that you are experiencing today You do have spinal stenosis and I suspect that the positions and change in gait that you have utilized over the last couple of days because your butt hurts has made this a bit irritated and is causing your symptoms today. This should improve as they blood clot heels and you are able to sit and move more normally Your Coumadin/INR level is 4.2 today. Please do not take your Coumadin for the next 3 days. You will need to have your Coumadin level recheck on Saturday. If you have worsening symptoms or problems, please return to the ER Prescriptions: No Action warfarin [Coumadin] 10 MG tablet 10 mg PO SEEINSTR Qty: 0 RF: 0 atorvastatin [Lipitor] 10 MG tablet 10 mg PO HS Qty: 0 RF: 0 [PROBIOTIC] 1 cap PO QDAY Qty: 0 RF: 0 tadalafil [Cialis] 10 MG tablet 10 mg PO PRN PRN (Reason: intimacy) Qty: 0 RF: 0 sennosides [Senokot] 8.6 MG tablet 8.6 mg PO QDAY PRN (Reason: Constipation) RF: 0 tamsulosin [Flomax] 0.4 mg capsule 0.4 mg PO DAILY RF: 0 Referrals: Mayela Mejias MD [Primary Care Provider] -
[2021-04-27 08:00] LABS: Add Manual Diff / Slide Review NO; Basophils Absolute Auto 0 /uL (0-100); Basophils Percent Auto 0.3 % (0-2); Eosinophils Absolute Auto 0 /uL (0-450); Eosinophils Percent Auto 0.4 % (2-4); Hematocrit 36.4 % (41-53); Hemoglobin 12.2 g/dL (13.5-17.5); Lymphocytes Absolute Auto 1000 /uL (1100-4500); Lymphocytes Percent Auto 14.3 % (25-40); Mean Corpuscular HGB Conc 33.5 % (30-36); Mean Corpuscular Hemoglobin 34.5 PG (26-34); Monocytes Absolute Auto 800 /uL (0-900); Monocytes Percent Auto 11.7 % (3-14); Neutrophils Absolute Auto 5100 /uL (1500-7000); Neutrophils Percent Auto 73.3 % (50-75); Platelet Count 130 X10^3/uL (150-400); Red Blood Cell Count 3.54 X10^6/uL (4.5-5.9); Red Cell Distribution Width 13.8 % (11.6-14.8); White Blood Cell Count 6.9 X10^3/uL (4.5-11.0)
[2021-04-27 08:06] LABS: INR 4.3 (0.9-1.3); Prothrombin Time 49.8 SECONDS (10.1-12.7)
[2021-04-27 08:12] LABS: Alanine Aminotransferase 25 IU/L (<50); Albumin 3.7 g/dL (3.5-5.0); Albumin Globulin Ratio 1.6 (1.0-2.8); Alkaline Phosphatase 96 U/L (38-126); Aspartate Aminotransferase 48 IU/L (17-59); BUN Creatinine Ratio 24.6 (6-22); Bilirubin Total 0.8 mg/dL (0.2-1.3); Blood Urea Nitrogen 14 mg/dL (9-20); Calcium 8.8 mg/dL (8.4-10.2); Carbon Dioxide 28 mmol/L (22-32); Chloride 105 mmol/L (98-107); Estimated Glomerular Filt Rate > 60.0 mL/min (>60); Globulin 2.3 g/dL (1.7-4.1); Glucose 111 mg/dL (80-110); HEMOLYSIS < 15 (0-50); Potassium 4.3 mmol/L (3.4-5.1); Sodium 136 mmol/L (137-145)
== END 2021-04-27 11:08 | disposition home or self-care (01) ==
PROVIDERS: Emergency Provider Emergency Medicine; PCP Internal Medicine
DX: M48.061 Spinal stenosis, lumbar region without neurogenic claudication (principal); S30.0XXA Contusion of lower back and pelvis, initial encounter; G62.9 Polyneuropathy, unspecified; R79.1 Abnormal coagulation profile; W19.XXXA Unspecified fall, initial encounter
CPT/HCPCS: 36415; 72158; 80053; 85025; 85610; 99284

== ENCOUNTER → 2021-05-05 15:04 | Outpatient (CLI) | payer MEDICARE, OTHER, SELFPAY ==
--- NOTE | 2021-05-05 | DI.CT.S_ITS ---
PROCEDURE: CT PEL WO CON INDICATIONS: PELVIC PAIN TECHNIQUE: Noncontrast 3 mm axial sections acquired through the bony pelvis, with coronal and sagittal reformatting. COMPARISON: None. FINDINGS: Image quality: Excellent. Bones: Patient is status post right total hip arthroplasty with anatomic right hip alignment. Pelvic ring is intact. No acute fracture or dislocation. No gross hardware loosening or failure. Moderate bilateral sacroiliac joint and left hip joint osteoarthritic changes are seen. Degenerative disc disease in visualized lower lumbar spine is also noted. No suspicious bony lesion. No evidence of avascular necrosis of femoral head. Soft tissues: There is asymmetrically enlarged right inferior gluteus baljit muscle with large intramuscular hematoma measures up to 6.6 x 3.7 x 7.3 cm in size, series 6, image 24 and series 3, image 47. Mild overlying right gluteal soft tissue stranding is also seen. No other intramuscular hematoma or soft tissue mass is seen. No pelvic free fluid or free air. Bladder wall thickness is normal. Large periumbilical hernia is seen containing multiple bowel loops without evidence of incarceration or strangulation. No abnormal bowel wall thickening. IMPRESSION: 1. 6.6 x 3.7 x 7.3 cm hyperdense collection within asymmetrically enlarged right inferior gluteus baljit muscle with mild overlying subcutaneous fat stranding consistent with large intramuscular hematoma. 2. No acute pelvic fracture or dislocation. Prior right hip arthroplasty. No gross hardware complication. Moderate osteoarthritic changes throughout rest of bony pelvis. Degenerative disc disease in lower lumbar spine. 3. No pelvic free fluid or free air. Large left periumbilical hernia containing multiple bowel loops without evidence of incarceration. Dictated by: Ge Baltazar M.D. on 05/05/2021 at 16:31 Approved by: Ge Baltazar M.D. on 05/05/2021 at 16:45
[2021-05-05 16:40] LABS: INR 2.1 (0.9-1.3)
== END ==
PROVIDERS: PCP Internal Medicine; Referring Provider Internal Medicine; Visit Provider Internal Medicine
DX: R10.2 Pelvic and perineal pain (principal); I48.91 Unspecified atrial fibrillation; M51.36 Other intervertebral disc degeneration, lumbar region; K44.9 Diaphragmatic hernia without obstruction or gangrene; Z96.641 Presence of right artificial hip joint
CPT/HCPCS: 36415; 72192; 85610

== ENCOUNTER → 2021-05-12 12:49 | Outpatient (CLI) | payer MEDICARE, OTHER, SELFPAY ==
--- NOTE | 2021-05-12 12:50 | DI.US.S_ITS ---
PROCEDURE: US PERIPH VENOUS LOW EXTREM RT INDICATIONS: R CALF SWELLING TECHNIQUE: Real-time imaging, as well as color and pulse Doppler interrogation, were performed of the lower extremity deep veins from the inguinal ligament to the popliteal fossa. COMPARISON: None. FINDINGS: The common femoral, femoral and popliteal veins are normally compressible, and free of intraluminal thrombus. Color and pulse Doppler demonstrate normal phasic intraluminal flow. There is normal augmentation response to distal compression maneuver. IMPRESSION: Negative for deep venous thrombosis. Dictated by: Jethro Hercules M.D. on 05/12/2021 at 12:23 Approved by: Jethro Hercules M.D. on 05/12/2021 at 12:24
== END ==
PROVIDERS: PCP Internal Medicine; Referring Provider Nurse Practitioner; Visit Provider Nurse Practitioner
DX: M79.89 Other specified soft tissue disorders (principal)
CPT/HCPCS: 93971

== ENCOUNTER → 2021-05-17 10:21 | Outpatient (CLI) | payer MEDICARE, OTHER, SELFPAY ==
--- NOTE | 2021-05-17 10:26 | DI.RAD.S_ITS ---
PROCEDURE: XR TIBIA FUBULA RT 2V INDICATIONS: RT ANKLE/LOW LEG PAIN TECHNIQUE: 2 views of the tibia and fibula were acquired. COMPARISON: None. FINDINGS: Bones: No acute, displaced fracture. No suspicious bony lesions. Mild tricompartment osteophytosis. A fabella is seen. 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 Soft tissues: Vascular calcifications are seen. IMPRESSION: No acute osseous abnormality. Dictated by: Nitish Harrell M.D. on 05/17/2021 at 13:41 Approved by: Nitish Harrell M.D. on 05/17/2021 at 13:50
--- NOTE | 2021-05-17 10:26 | DI.RAD.S_ITS ---
PROCEDURE: XR ANKLE RT MIN 3V INDICATIONS: RT ANKLE/LOW LEG PAIN TECHNIQUE: 3 views of the ankle were acquired. COMPARISON: None. FINDINGS: Bones: Ossific lesion distal to the fibula, compatible with remote injury. No acute, displaced fracture or dislocation. Ankle mortise is normally aligned. No suspicious bony lesions. Trace plantar calcaneal enthesophyte. Soft tissues: No tibiotalar joint effusion. IMPRESSION: No acute osseous abnormality. Dictated by: Nitish Harrell M.D. on 05/17/2021 at 13:19 Approved by: Nitish Harrell M.D. on 05/17/2021 at 13:22
== END ==
PROVIDERS: PCP Internal Medicine; Referring Provider Internal Medicine; Visit Provider Internal Medicine
DX: M79.661 Pain in right lower leg (principal); M25.571 Pain in right ankle and joints of right foot
CPT/HCPCS: 73590; 73610

== ENCOUNTER 2021-05-23 09:57 | Emergency (ER) | payer MEDICARE, OTHER, SELFPAY ==
[2021-05-23 10:04] VITALS: BP 189/101; PULSE 63; RESP 14; O2SAT 99; BMI 27.1
--- NOTE | 2021-05-23 10:05 | DI.RAD.S_ITS ---
PROCEDURE: XR RIBS RT MIN 3V W CXR 1V INDICATIONS: R sided rib pain after fall TECHNIQUE: 2 views of the right ribs were acquired, along with a single view chest. COMPARISON: None. FINDINGS: Surgical changes and devices: None. Bones and chest wall: There definitely are at least 2 right rib fractures. It is hard to identify the exact levels of the rib fractures. They may potentially be the anterior lateral 6th and 7th ribs. No suspicious bony lesions. Overlying soft tissues appear unremarkable. Lungs and pleura: Minimal right pleural effusion with possible small air-fluid level. Mediastinum: Mediastinal contours appear normal. Heart size is normal. IMPRESSION: 1. There are definitely at least 2 right rib fractures, possibly the 6th and 7th ribs. 2. Minimal right pleural effusion with possible small hydropneumothorax. Comment: Consider noncontrast chest CT to evaluate the possibility of a small pneumothorax. Dictated by: Tereso Austin M.D. on 05/23/2021 at 10:51 Approved by: Tereso Austin M.D. on 05/23/2021 at 10:55
--- NOTE | 2021-05-23 10:16 | ED.FALL ---
HPI - Fall General Chief Complaint: Fall Stated Complaint: Fell and having rib pain Time Seen by Provider: 05/23/21 09:59 Source: patient Mode of arrival: Ambulatory History of Present Illness HPI Narrative: Patient is a 81-year-old male. He is on warfarin/Coumadin for atrial fibrillation. Has had a DVT in the past. Had an ultrasound performed a couple days ago is a swelling in his right leg. This is reported to be negative. Approximately 5 weeks ago he fell landing on his right hip. He was seen here in the emergency department. Was evaluated. Had x-rays performed. Had a large hematoma on his right hip. That seems to be improving. A couple days ago he was sitting at his desk at home. He had some paperwork on a chair. He leaned over to pick it up. He fell landing on his right side. He has bruising on his right ribs. This was 5 days ago. No fevers. Does have some increased phlegm production and some discomfort on his right side. Contact his primary doctor told him to come to the emergency department for evaluation. Related Data Home Medications Medication Instructions Recorded Confirmed [PROBIOTIC] 1 cap PO QDAY #0 11/14/17 04/13/21 atorvastatin 10 mg tablet (Lipitor) 10 mg PO HS #0 11/14/17 04/13/21 tadalafil 10 mg tablet (Cialis) 10 mg PO PRN PRN #0 11/14/17 04/13/21 warfarin 10 mg tablet (Coumadin) 10 mg PO SEEINSTR #0 11/14/17 04/13/21 sennosides 8.6 mg tablet (Senokot) 8.6 mg PO QDAY PRN 12/25/17 04/13/21 tamsulosin 0.4 mg capsule (Flomax) 0.4 mg PO DAILY 09/09/20 04/13/21 Allergies Allergy/AdvReac Type Severity Reaction Status Date / Time No Known Drug Allergies Allergy Verified 05/23/21 10:04 Review of Systems Constitutional Constitutional: Denies fever(s) Cardiovascular Cardiovascular: Denies chest pain Respiratory Respiratory: Reports as per HPI and Reports system reviewed and no additional complaints, except as documented Gastrointestinal Gastrointestinal: Denies abdominal pain Musculoskeletal Musculoskeletal: Reports system reviewed and no additional complaints, except as documented and Reports as per HPI Integumentary/Breasts Skin/Breast: Reports system reviewed and no additional complaints, except as documented and Reports as per HPI Neurologic Neurologic: Reports system reviewed and no additional complaints, except as documented Endocrine Endocrine: Reports system reviewed and no additional complaints, except as documented Hematologic/Lymphatic On Anticoagulants: Yes Patient History Medical History (Updated 05/23/21 @ 14:05 by Deniz Noel DO) Afib Chronic anticoagulation DJD of both shoulders Facet arthropathy, multilevel History of chronic atrial fibrillation History of colon cancer (~2017) Left shoulder pain Liver lesion Lumbosacral spondylosis with radiculopathy Surgical History H/O hernia repair H/O total hip arthroplasty History of colectomy (~2017) History of colonoscopy Status post cervical spinal fusion Family History Father Hypertension Stroke Mother Heart disease Social History household members: spouse Smoking Status: Former smoker Smoking Status: Former smoker alcohol intake frequency: 0-2 drinks per day Substance Use Type: does not use Exam Initial Vital Signs Initial Vital Signs: Vital Signs Pulse Rate 63 05/23/21 10:04 Respiratory Rate 14 05/23/21 10:04 Blood Pressure 189/101 H 05/23/21 10:04 Pulse Oximetry 99 05/23/21 10:04 Const General: cooperative and comfortable HENMT Head: normal to inspection and normocephalic Chest Other: Mild tenderness to palpation over the right lateral chest wall Resp Effort & Inspection: normal respiratory effort Auscultation: clear to auscultation bilaterally Cardio Rate: regular rate Rhythm: regular rhythm GI Inspection: non-distended Palpation: soft and No tender Back/Spine/Pelvis Back: No back tenderness Skin Other: Patient with a large hematoma on the lateral aspect of his right hip over the greater trochanter. This does seem to be in the healing process. Also has bruising over his right lateral chest wall. Also has some redness located around his right calf muscle. Neuro General: patient alert, patient awake and patient oriented x3 Extrem Other: Right calf muscle is swollen compared to left. Patient states this is baseline. He measures at on a daily basis. The rest of his right lower extremity shows no new changes. He can flex and extend at the hip and knee and ankle. Psych Appearance: grossly normal and well kempt Course Orders Ordered: ED Orders 05/23/21 10:05 XR ribs RT min 3V w CXR1V Stat 05/23/21 11:02 CT chest wo con Stat Vital Signs Vital signs: Vital Signs - 8 hr 05/23/21 10:04 05/23/21 13:05 05/23/21 14:19 Pulse Rate 63 67 64 Respiratory Rate 14 18 18 Blood Pressure 189/101 H 178/96 H 178/65 H Pulse Oximetry 99 99 98 MDM - Fall Imaging Data Chest x-ray: Radiologist's Impression: [address] [address] XRay Report Signed Patient: Hugo Hunt MR#: [id number] : 1940 Acct:[id number] Age/Sex: 81 / M Date of Service: 05/23/21 Loc: ED Accession Number: [id number] ?? Procedure: XR ribs RT min 3V w CXR1V Ordering Provider: Deniz Noel D.O. PROCEDURE:? XR RIBS RT MIN 3V W CXR 1V ? INDICATIONS:? R sided rib pain after fall ? TECHNIQUE:? 2 views of the right ribs were acquired, along with a single view chest.? ? COMPARISON:? None. ? FINDINGS:? ? Surgical changes and devices:? None.? ? Bones and chest wall:? There definitely are at least 2 right rib fractures.? It is hard to identify the exact levels of the rib fractures.? They may potentially be the anterior lateral 6th and 7th ribs.? No suspicious bony lesions.? Overlying soft tissues appear unremarkable.? ? Lungs and pleura:? Minimal right pleural effusion with possible small air-fluid level. ? Mediastinum:? Mediastinal contours appear normal.? Heart size is normal.? ? IMPRESSION:? 1. There are definitely at least 2 right rib fractures, possibly the 6th and 7th ribs. ? 2. Minimal right pleural effusion with possible small hydropneumothorax. ? Comment:? Consider noncontrast chest CT to evaluate the possibility of a small pneumothorax.? ? ? Dictated by: Tereso Austin M.D. on 05/23/2021 at 10:51 ? ? Approved by: Tereso Austin M.D. on 05/23/2021 at 10:55?? CT scan - chest: Radiologist's Impression: [address] [address] [address] Scan Report Signed Patient: Hugo Hunt MR#: [id number] : 1940 Acct:[id number] Age/Sex: 81 / M Date of Service: 05/23/21 Loc: ED Accession Number: [id number] ?? Procedure: CT chest wo con Ordering Provider: Deniz Noel D.O. PROCEDURE:? CT CHEST WO CON ? INDICATIONS:? Right-sided rib fractures possible pneumo ? TECHNIQUE: Noncontrast 5 mm thick sections acquired from the pulmonary apices to the posterior costophrenic angles.? 1 mm lung window, 5 mm thick coronal and sagittal and 7 mm axial MIP reformats were then acquired.? For radiation dose reduction, the following was used:? automated exposure control, adjustment of mA and/or kV according to patient size.? ? COMPARISON:? [facility], CR, XR RIBS RT MIN 3V W CXR 1V, 05/23/2021, 10:26.? [facility], CT, CT CHEST WO CON, 01/28/2018, 12:35. ? FINDINGS:? Image quality:? Excellent.? ? Lungs and pleura:? Small right basilar pleural effusion.? Mild right basilar atelectasis. ?No pneumothorax.? Central and peripheral airways are patent and normal in caliber.? ? Mediastinum:? Heart size is normal.? No pericardial effusion.? No mediastinal adenopathy by size criteria.? Thoracic aorta and central pulmonary arteries are normal in size.? Esophagus is normal in caliber.? No hiatal hernia.? ? Bones and chest wall:? No suspicious bony lesions.? No vertebral body compression fractures.? Displaced lateral right 7th rib fracture.? Nondisplaced very subtle lateral right 8th rib fracture. No axillary or supraclavicular adenopathy by size criteria.? Thyroid gland is unremarkable .? ? Abdomen:? Visualized upper abdominal solid organs and bowel loops appear normal in the absence of contrast.? ? IMPRESSION:? ? 1. Displaced lateral right 7th rib fracture, very subtle nondisplaced right lateral 8th rib fracture. ? 2. Small right pleural effusion and mild right basilar atelectasis. ? 3. No pneumothorax noted.? ? ? Dictated by: Tereso Austin M.D. on 05/23/2021 at 13:27 ? ? Approved by: Tereso Austin M.D. on 05/23/2021 at 13:31? [facility] Narrative Medical decision making narrative: Patient afebrile. No respiratory distress. Clear lung exam. His coughing. Initial chest x-ray concerning for multiple rib fractures with potential pneumothorax. CT scan of the chest does show 2 rib fractures and pleural effusion however no pneumothorax. He does have swelling to his right lower extremity but this is not new. Does have redness around his right lower extremity but this is been going on for the past 5 weeks. I have low suspicion for DVT. Low suspicion for cellulitis. Actually saw picture of his right lower extremity from his fall 5 weeks ago in the redness that is present today is much improved from what it was several days ago. Patient is 5 days from his fall where he most likely sustained his rib fractures. I did discuss the case with General surgery. Given the fact that he is 5 days out from his fall, no respiratory distress, no fevers, no pneumothorax he can be discharged home with very strict return precautions. I did discuss this with him and his . We did discuss the concern about rib fractures and complications such as pneumonia. The patient states that he feels very well would actually like to be discharged home so that he can go to the gym and workout. He understands the return precautions. Both he and his expressed understanding and agreement. Discharge Plan Departure Patient Disposition: Home Clinical Impression: Ribs, multiple fractures Instructions: DI for Rib Fracture, How to Prevent Falls Activity Restrictions/Additional Instructions: I do recommend that you contact your primary doctor for a follow-up within the next week. The CT scan and x-rays today do show that you have 2 right-sided rib fractures. It is important that you occasionally take big deep breaths and also cough. If you start to have fevers or confusion or chest pain or problems breathing you do need to return to the emergency department immediately for further evaluation. Continue all of your medications as directed. Prescriptions: No Action warfarin [Coumadin] 10 MG tablet 10 mg PO SEEINSTR Qty: 0 RF: 0 atorvastatin [Lipitor] 10 MG tablet 10 mg PO HS Qty: 0 RF: 0 [PROBIOTIC] 1 cap PO QDAY Qty: 0 RF: 0 tadalafil [Cialis] 10 MG tablet 10 mg PO PRN PRN (Reason: intimacy) Qty: 0 RF: 0 sennosides [Senokot] 8.6 MG tablet 8.6 mg PO QDAY PRN (Reason: Constipation) RF: 0 tamsulosin [Flomax] 0.4 mg capsule 0.4 mg PO DAILY RF: 0 Referrals: Mayela Mejias MD [Primary Care Provider] -
--- NOTE | 2021-05-23 11:02 | DI.CT.S_ITS ---
PROCEDURE: CT CHEST WO CON INDICATIONS: Right-sided rib fractures possible pneumo TECHNIQUE: Noncontrast 5 mm thick sections acquired from the pulmonary apices to the posterior costophrenic angles. 1 mm lung window, 5 mm thick coronal and sagittal and 7 mm axial MIP reformats were then acquired. For radiation dose reduction, the following was used: automated exposure control, adjustment of mA and/or kV according to patient size. COMPARISON: [facility], CR, XR RIBS RT MIN 3V W CXR 1V, 05/23/2021, 10:26. [facility], CT, CT CHEST WO CON, 01/28/2018, 12:35. FINDINGS: Image quality: Excellent. Lungs and pleura: Small right basilar pleural effusion. Mild right basilar atelectasis. No pneumothorax. Central and peripheral airways are patent and normal in caliber. Mediastinum: Heart size is normal. No pericardial effusion. No mediastinal adenopathy by size criteria. Thoracic aorta and central pulmonary arteries are normal in size. Esophagus is normal in caliber. No hiatal hernia. Bones and chest wall: No suspicious bony lesions. No vertebral body compression fractures. Displaced lateral right 7th rib fracture. Nondisplaced very subtle lateral right 8th rib fracture. No axillary or supraclavicular adenopathy by size criteria. Thyroid gland is unremarkable . Abdomen: Visualized upper abdominal solid organs and bowel loops appear normal in the absence of contrast. IMPRESSION: 1. Displaced lateral right 7th rib fracture, very subtle nondisplaced right lateral 8th rib fracture. 2. Small right pleural effusion and mild right basilar atelectasis. 3. No pneumothorax noted. Dictated by: Tereso Austin M.D. on 05/23/2021 at 13:27 Approved by: Tereso Austin M.D. on 05/23/2021 at 13:31
[2021-05-23 13:05] VITALS: BP 178/96; PULSE 67; RESP 18; O2SAT 99
[2021-05-23 14:19] VITALS: BP 178/65; PULSE 64; RESP 18; O2SAT 98
== END 2021-05-23 14:21 | disposition home or self-care (01) ==
PROVIDERS: Emergency Provider Emergency Medicine; PCP Internal Medicine
DX: S22.41XA Multiple fractures of ribs, right side, initial encounter for closed fracture (principal); J90 Pleural effusion, not elsewhere classified; W18.30XA Fall on same level, unspecified, initial encounter; Z87.891 Personal history of nicotine dependence
CPT/HCPCS: 71101; 71250; 99281; 99283

== ENCOUNTER → 2021-06-16 09:32 | Outpatient (CLI) | payer MEDICARE, OTHER, SELFPAY ==
--- NOTE | 2021-06-16 09:35 | DI.CT.S_ITS ---
PROCEDURE: CT CHEST ABD PEL W CON INDICATIONS: Follow-up stage II colon cancer TECHNIQUE: After the administration of oral and intravenous contrast, axial sections acquired from the supraclavicular neck to the pubic symphysis. Coronal and sagittal reformats were performed. For radiation dose reduction, the following was used: automated exposure control, adjustment of mA and/or kV according to patient size. COMPARISON: [facility], CT, CT CHEST ABD PEL W CON, 04/25/2020, 11:30. FINDINGS: Image quality: Excellent. CHEST: Lungs and pleura: No acute air space opacities. No pleural effusions or pneumothorax. Central and peripheral airways are patent and normal in caliber. Mediastinum: Heart size is within normal limits. The coronary arteries have atherosclerotic calcifications. No pericardial effusion. No mediastinal adenopathy by size criteria. The aorta has atherosclerosis with no aneurysmal dilatation. Esophagus is normal in caliber. No hiatal hernia. Chest wall: No axillary or supraclavicular adenopathy by size criteria. Thyroid gland is normal . ABDOMEN: Solid organs: Liver: The liver has no mass or intrahepatic biliary ductal dilatation. The portal vein and hepatic veins are patent. Biliary: The gallbladder has no gallstones, pericholecystic fluid, gallbladder wall thickening, or surrounding inflammatory change. Pancreas: The pancreas has no mass or ductal dilatation. There is no surrounding inflammation. Spleen: Normal size. There are no masses. Adrenals: No hypertrophy or nodules. Kidneys: No obstructive calculus or hydronephrosis. No solid mass. No cystic mass. Bowel: The distal esophagus and stomach are normal. The small bowel has a normal caliber and appearance. The large bowel has increased stool consistent with constipation. No free fluid or air. Nodes and vessels: No retroperitoneal or mesenteric adenopathy by size criteria. Aorta and inferior vena cava are normal in size. Abdominal wall: A ventral hernia containing small bowel is unchanged. PELVIS: Genitourinary: The bladder has no wall thickening or mass. No bladder calcifications. Abdominal wall: No inguinal hernias or adenopathy. BONES: Remote placed right 7th and 8th rib fractures. No vertebral body compression fractures. Postoperative changes of right hip replacement. IMPRESSION: 1. No evidence of metastatic disease to the chest, abdomen, or pelvis. 2. Remote right 7th and 8th rib fracture. 3. Ventral hernia containing small bowel. Dictated by: Eduard Yoo M.D. on 06/16/2021 at 11:23 Approved by: Eduard Yoo M.D. on 06/16/2021 at 11:39
[2021-06-16 09:55] LABS: Add Manual Diff / Slide Review NO; Basophils Absolute Auto 100 /uL (0-100); Eosinophils Absolute Auto 100 /uL (0-450); Eosinophils Percent Auto 2.5 % (2-4); Hematocrit 41.9 % (41-53); Hemoglobin 14.2 g/dL (13.5-17.5); Lymphocytes Absolute Auto 1800 /uL (1100-4500); Mean Corpuscular Hemoglobin 34.5 PG (26-34); Mean Corpuscular Volume 101.3 fL (80-100); Monocytes Absolute Auto 600 /uL (0-900); Monocytes Percent Auto 10.5 % (3-14); Neutrophils Absolute Auto 3200 /uL (1500-7000); Platelet Count 165 X10^3/uL (150-400); Red Blood Cell Count 4.13 X10^6/uL (4.5-5.9); White Blood Cell Count 5.8 X10^3/uL (4.5-11.0)
[2021-06-16 10:13] LABS: Alanine Aminotransferase 25 IU/L (<50); Albumin 4.1 g/dL (3.5-5.0); Albumin Globulin Ratio 1.6 (1.0-2.8); Alkaline Phosphatase 99 U/L (38-126); Aspartate Aminotransferase 35 IU/L (17-59); BUN Creatinine Ratio 20.5 (6-22); Bilirubin Total 0.9 mg/dL (0.2-1.3); Blood Urea Nitrogen 16 mg/dL (9-20); Calcium 9.2 mg/dL (8.4-10.2); Carbon Dioxide 27 mmol/L (22-32); Chloride 102 mmol/L (98-107); Estimated Glomerular Filt Rate > 60.0 mL/min (>60); Globulin 2.5 g/dL (1.7-4.1); Glucose 100 mg/dL (80-110); HEMOLYSIS < 15 (0-50); Potassium 4.6 mmol/L (3.4-5.1); Sodium 136 mmol/L (137-145); Total Protein 6.6 g/dL (6.3-8.2)
[2021-06-16 11:26] LABS: Carcinoembryonic Antigen 2.7 ng/mL (0.1-3.0)
== END ==
PROVIDERS: PCP Family Medicine; Referring Provider Internal Medicine; Visit Provider Internal Medicine
DX: C18.0 Malignant neoplasm of cecum (principal); S22.41XS Multiple fractures of ribs, right side, sequela; K43.9 Ventral hernia without obstruction or gangrene
CPT/HCPCS: 36415; 71260; 74177; 80053; 82378; 85025; Q9967

== ENCOUNTER → 2021-07-26 11:42 | Outpatient (CLI) | payer MEDICARE, OTHER, SELFPAY ==
[2021-07-26 13:24] LABS: INR 2.2 (0.9-1.3); Prothrombin Time 25.2 SECONDS (10.1-12.7)
== END ==
PROVIDERS: PCP Family Medicine; Referring Provider Family Medicine; Visit Provider Family Medicine
DX: Z79.01 Long term (current) use of anticoagulants (principal)
CPT/HCPCS: 36415; 85610

== ENCOUNTER → 2021-09-11 10:27 | Outpatient (CLI) | payer MEDICARE, OTHER, SELFPAY ==
[2021-09-11 11:57] LABS: INR 2.4 (0.9-1.3); Prothrombin Time 27.7 SECONDS (10.1-12.7)
== END ==
PROVIDERS: PCP Family Medicine; Referring Provider Family Medicine; Visit Provider Family Medicine
DX: Z79.01 Long term (current) use of anticoagulants (principal)
CPT/HCPCS: 36415; 85610

== ENCOUNTER → 2022-02-14 09:28 | Outpatient (CLI) | payer MEDICARE, OTHER, SELFPAY ==
[2022-02-14 12:11] LABS: COVID19 -Nasal RAPID Negative (Negative)
== END ==
PROVIDERS: PCP Family Medicine; Visit Provider Surgery
DX: Z20.822 Contact with and (suspected) exposure to COVID-19 (principal); Z01.812 Encounter for preprocedural laboratory examination
CPT/HCPCS: 87635; C9803

== ENCOUNTER 2022-02-15 07:25 | Day surgery (SDC) | payer MEDICARE, OTHER, SELFPAY ==
--- NOTE | 2022-02-15 | PATH_ITS ---
[facility] Accession Number: [id number] . 01 Material submitted: . colon - COLON POLYPS AT 110CM . 01 Diagnosis: Colon, Polyps at 110 CM, Biopsies: Tubular adenomas. JNL 02/16/2022 1224 Local . 01 Electronically signed: . Balbina Lazar MD, Pathologist NPI- [id number] . 01 Gross description: . COLON POLYPS AT 110CM: Received in formalin are 2 fragment(s) of collins, soft tissue measuring 0.8 x 0.1 x 0.1 cm to 0.2 x 0.2 x 0.1 cm submitted entirely in 1 cassette(s) /CPE 02/16/2022 0256 Local . 01 Pathologist provided ICD-10: D12.6 . 01 CPT . 770251 Performed at: 01 [facility] [address] [place] [address] [id number] MD Wniston Powers MD Phone: [phone]
[2022-02-15 07:46] VITALS: BP 150/90; PULSE 70; RESP 16; TEMP 36.6; O2SAT 100; BMI 27.1
[2022-02-15] MEDS: LACTATED RINGERS 1,000 ML 42 ML IV (08:08)
--- NOTE | 2022-02-15 08:23 | PM.HP.1 ---
History of Present Illness History of Present Illness Date Patient Seen: 02/15/22 Time Patient Seen: 08:23 Chief complaint: SDC Narrative: Troy is an 82-year-old man who had a right hemicolectomy [place] [address] Bailey for a cecal cancer. He had a follow-up colonoscopy in 2019 which was normal aside from 1 hyperplastic polyp. He has no problems to report. Patient History Medical History (Updated 02/15/22 @ 08:24 by Isaac Loya MD) Abdominal hernia Afib Chronic anticoagulation DJD of both shoulders Facet arthropathy, multilevel GI bleed History of colon cancer (~2017) Intussusception Left shoulder pain Liver lesion Lumbosacral spondylosis with radiculopathy Pneumonia Small bowel obstruction Surgical History H/O hernia repair H/O total hip arthroplasty History of colectomy (~2017) History of colonoscopy Status post cervical spinal fusion Family & Social History Family History Father Hypertension Stroke Mother Heart disease Social History: household members spouse Tobacco & Substance use: Smoking Status Former smoker alcohol intake frequency 0-2 drinks per day Substance Use Type does not use Meds Home Medications and Allergies Home Medications Medication Instructions Recorded Confirmed Type [PROBIOTIC] 1 cap PO QDAY ##0 11/14/17 06/08/21 History tadalafil 10 mg tablet (Cialis) 10 mg PO PRN PRN intimacy ##0 11/14/17 06/08/21 History sennosides 8.6 mg tablet (Senokot) 8.6 mg PO QDAY PRN Constipation 12/25/17 06/08/21 History tamsulosin 0.4 mg capsule (Flomax) 0.4 mg PO DAILY 09/09/20 06/08/21 History peg 3350-electrolytes 236 240 ml PO Q10M #4,000 mL 01/08/22 Rx gram-22.74 gram-6.74 gram-5.86 gram solution (Golytely) warfarin 5 mg tablet See Rx Instructions .Route .COMPLEX 01/30/22 02/15/22 History Allergies Allergy/AdvReac Type Severity Reaction Status Date / Time No Known Drug Allergies Allergy Verified 05/23/21 10:04 Exam Vital Signs (past 8 hours): - 02/15/22 07:46 Temperature 97.8 F Pulse Rate 70 Respiratory Rate 16 Blood Pressure 150/90 H Pulse Oximetry 100 Oxygen Delivery Method Room Air Oxygen Delivery Method Room Air Const General: healthy appearing Resp Effort & Inspection: normal respiratory effort Assessment & Plan Assessment and plan (1) Personal history of colon cancer: Status: Acute Plan Troy is an 82-year-old man who had colon cancer in 2018 that was successfully treated with a right hemicolectomy. He is here for surveillance colonoscopy as he is now 3 years out from his last colonoscopy. We reviewed the risks and benefits of the procedure and he would like to proceed. COVID-19 COVID-19 status: Negative Result date/Date tested (Pos, Neg/Pending): 02/14/22 Time Spent With Patient Critical Care time: I spent a total of [] minutes of critical care time on this patient's care today; this time is exclusive of procedural time.
[2022-02-15] MEDS: fentaNYL 250 MCG/5 ML INJ 125 MCG IV (08:43)
[2022-02-15] MEDS: MIDAZOLAM 5 MG/5 ML VIAL 6 MG IV (08:46)
--- NOTE | 2022-02-15 09:02 | PM.OP.COLON ---
Operative Date/Time/Diagnoses Date of procedure: 02/15/22 Time of procedure: 09:03 Pre-op diagnosis: History of colon cancer Post-op diagnosis: same Procedure & Clinicians Study performed: Colonoscopy Surgeon: Isaac Loya Procedure Notes Procedure in detail: Surgeon: Isaac Loya MD Procedure: The patient was brought to the endoscopy suite, placed in left lateral decubitus position. The patient was connected to monitoring devices. A time-out was performed. Sedation was administered. Once the patient was adequately sedated, a digital rectal exam was performed and was normal. The scope was then inserted and advanced to the anastomosis. The small bowel mucosa was photographed. The scope was then slowly withdrawn over greater than 6 minutes. The mucosa was thoroughly inspected. There were 2 small polyps, each about 5 mm, in the mid colon at 110 cm from the anal verge. They were both removed with cold forceps. The scope was retroflexed in the rectum. No abnormalities were noted. The scope was straightened and removed. The patient was awakened and brought to recovery. Versed: 6 mg Fentanyl: 125 mcg EBL: 5 mL Findings: 2 small polyps, each about 5 mm, at the mid colon at 110 cm Scope withdrawal time: 9 Sedation minutes: 27 Post-procedure Recommendations: Will call with biopsy results Disposition: PACU
[2022-02-15 09:05] VITALS: BP 131/69; PULSE 47; RESP 14; TEMP 36.2; O2SAT 97
[2022-02-15 09:10] VITALS: BP 118/70; PULSE 49; RESP 14; O2SAT 97
[2022-02-15 09:15] VITALS: BP 124/69; PULSE 47; RESP 14; O2SAT 96
[2022-02-15 09:21] VITALS: BP 122/81; PULSE 49; RESP 14; O2SAT 97
[2022-02-15 09:22] VITALS: BP 125/67; PULSE 68; RESP 16; O2SAT 97
== END 2022-02-15 09:39 | disposition home or self-care (01) ==
PROVIDERS: PCP Family Medicine; Referring Provider Surgery; Visit Provider Surgery
PROC: 0DJD8ZZ Inspection of Lower Intestinal Tract, Via Natural or Artificial Opening Endoscopic (ICD-10-PCS; CPT 45378; principal; 2022-02-15 08:30)
DX: Z12.11 Encounter for screening for malignant neoplasm of colon (principal); D12.6 Benign neoplasm of colon, unspecified; Z85.038 Personal history of other malignant neoplasm of large intestine; I48.91 Unspecified atrial fibrillation; Z79.01 Long term (current) use of anticoagulants; Z90.49 Acquired absence of other specified parts of digestive tract; Z87.891 Personal history of nicotine dependence
CPT/HCPCS: 45380; 85610; 99152; 99153; J2250; J3010

== ENCOUNTER → 2022-07-23 11:30 | Outpatient (CLI) | payer MEDICARE, OTHER, SELFPAY ==
--- NOTE | 2022-07-23 11:31 | DI.RAD.S_ITS ---
PROCEDURE: XR SHOULDER LT MIN 2V INDICATIONS: LEFT SHOULDER PAIN TECHNIQUE: 3 views of the shoulder were acquired. COMPARISON: [facility], CR, XR SHOULDER LT MIN 2V, 02/22/2020, 8:21. FINDINGS: Bones: No acute fractures or dislocations. No suspicious bony lesions. Visualized ribs appear intact. Severe joint space narrowing is seen at the glenohumeral joint with subchondral sclerosis and marginal osteophyte formation. Moderate degenerative changes are seen at the acromioclavicular joint. Cystic changes at the posterior greater tuberosity are most likely related to chronic ligamentous traction from rotator cuff tendon insertions. Soft tissues: No suspicious soft tissue calcifications. IMPRESSION: Severe glenohumeral osteoarthrosis and moderate acromioclavicular osteoarthrosis. Dictated by: Ji Whalen M.D. on 07/23/2022 at 12:49 Approved by: Ji Whalen M.D. on 07/23/2022 at 12:50
== END ==
PROVIDERS: PCP Family Medicine; Referring Provider Physical Medicine & Rehabilitation; Visit Provider Physical Medicine & Rehabilitation
DX: M19.011 Primary osteoarthritis, right shoulder (principal); M19.012 Primary osteoarthritis, left shoulder; M25.512 Pain in left shoulder
CPT/HCPCS: 73030

== ENCOUNTER → 2023-01-17 16:18 | Outpatient (CLI) | payer MEDICARE, OTHER, SELFPAY ==
--- NOTE | 2023-01-17 16:19 | DI.RAD.S_ITS ---
PROCEDURE: XR CHEST 2V INDICATIONS: persistent cough TECHNIQUE: 2 views of the chest were acquired. COMPARISON: [facility], , CHEST 2 VIEW, 12/01/2017, 4:50. [facility], , CHEST FOR PICC PLACEMENT, 11/28/2017, 11:17. FINDINGS: Surgical changes and devices: ACDF. Lungs and pleura: Lungs appear clear. No pleural effusions or pneumothorax. Mediastinum: Mediastinal contours are normal. Heart size is enlarged. Bones and chest wall: No suspicious bony abnormalities. Soft tissues appear unremarkable. IMPRESSION: No acute cardiopulmonary abnormality. Dictated by: Ismael Dougherty M.D. on 01/18/2023 at 9:02 Approved by: Ismael Dougherty M.D. on 01/18/2023 at 9:04
== END ==
PROVIDERS: PCP Family Medicine; Referring Provider Nurse Practitioner Family; Visit Provider Nurse Practitioner Family
DX: R05.9 Cough, unspecified (principal)
CPT/HCPCS: 71046

== ENCOUNTER → 2023-11-02 14:38 | Outpatient (CLI) | payer MEDICARE, OTHER, SELFPAY ==
--- NOTE | 2023-11-02 14:40 | DI.RAD.S_ITS ---
PROCEDURE: XR CHEST 2V INDICATIONS: Cough TECHNIQUE: 2 views of the chest were acquired. COMPARISON: [facility], CR, XR CHEST 2V, 01/17/2023, 16:21. FINDINGS: Surgical changes and devices: There is prior left shoulder reverse arthroplasty. Lungs and pleura: Mild pulmonary vascular congestion is seen. No definite focal infiltrate. No pleural effusions or pneumothorax. Mediastinum: Mediastinal contours are normal. Heart size is enlarged. Bones and chest wall: No suspicious bony abnormalities. Soft tissues appear unremarkable. IMPRESSION: Cardiomegaly and mild congestion. No focal infiltrate, pleural effusion or pneumothorax. Dictated by: Ge Baltazar M.D. on 11/02/2023 at 18:42 Approved by: Ge Baltazar M.D. on 11/02/2023 at 18:43
== END ==
PROVIDERS: PCP Family Medicine; Referring Provider Nurse Practitioner Family; Visit Provider Nurse Practitioner Family
DX: R05.9 Cough, unspecified (principal); I51.7 Cardiomegaly; R09.89 Other specified symptoms and signs involving the circulatory and respiratory systems
CPT/HCPCS: 71046

== ENCOUNTER → 2023-11-04 10:10 | Outpatient (CLI) | payer MEDICARE, OTHER, SELFPAY ==
[2023-11-04 11:10] LABS: COVID-19 CEPHEID 4-PLEX PCR Negative (Negative); Influenza A - CEPHEID Flu A NEGATIVE (NEGATIVE); Influenza B - CEPHEID Flu B NEGATIVE (NEGATIVE); Respiratory Syncytial Virus Negative (Negative)
== END ==
PROVIDERS: PCP Family Medicine; Visit Provider Physician Assistant Surgical
DX: R05.1 Acute cough (principal)
CPT/HCPCS: 0241U

== ENCOUNTER → 2024-01-23 15:23 | Outpatient (ROUT) | payer MEDICARE, OTHER, SELFPAY | PROVIDERS: PCP Family Medicine; Visit Provider Dermatology | DX: B37.0 Candidal stomatitis (principal) | CPT/HCPCS: 87077; 87102 ==

== ENCOUNTER → 2024-03-30 07:52 | Outpatient (CLI) | payer MEDICARE, OTHER, SELFPAY ==
[2024-03-30 08:31] LABS: Add Manual Diff / Slide Review NO; Basophils Absolute Auto 0 /uL (0-100); Basophils Percent Auto 0.2 % (0-2); Eosinophils Absolute Auto 0 /uL (0-450); Eosinophils Percent Auto 0.1 % (2-4); Hematocrit 44.1 % (41-53); Hemoglobin 15.1 g/dL (13.5-17.5); Lymphocytes Absolute Auto 1000 /uL (1100-4500); Lymphocytes Percent Auto 12.8 % (25-40); Mean Corpuscular HGB Conc 34.2 % (30-36); Mean Corpuscular Hemoglobin 34.5 PG (26-34); Mean Corpuscular Volume 100.9 fL (80-100); Monocytes Absolute Auto 400 /uL (0-900); Monocytes Percent Auto 5.8 % (3-14); Neutrophils Absolute Auto 6300 /uL (1500-7000); Neutrophils Percent Auto 81.1 % (50-75); Platelet Count 170 X10^3/uL (150-400); Red Blood Cell Count 4.37 X10^6/uL (4.5-5.9); Red Cell Distribution Width 15.5 % (11.6-14.8); White Blood Cell Count 7.8 X10^3/uL (4.5-11.0)
[2024-03-30 08:57] LABS: Alanine Aminotransferase 30 IU/L (<50); Albumin 3.8 g/dL (3.5-5.0); Albumin Globulin Ratio 1.8 (1.0-2.8); Alkaline Phosphatase 143 U/L (38-126); Aspartate Aminotransferase 34 IU/L (17-59); BUN Creatinine Ratio 32.9 (6-22); Blood Urea Nitrogen 25 mg/dL (9-20); C-Reactive Protein Quant < 0.5 mg/dL (<1.0); Calcium 9.1 mg/dL (8.4-10.2); Carbon Dioxide 29 mmol/L (22-32); Chloride 95 mmol/L (98-107); Estimated Glomerular Filt Rate > 60 mL/min (>60); Globulin 2.1 g/dL (1.7-4.1); Glucose 107 mg/dL (80-110); HEMOLYSIS < 15 (0-50); Potassium 4.6 mmol/L (3.4-5.1); Sodium 129 mmol/L (137-145); Total Protein 5.9 g/dL (6.3-8.2)
[2024-03-30 10:18] LABS: Erythrocyte Sedimentation Rate 1 MM/HR (0-15)
== END ==
PROVIDERS: PCP Family Medicine; Referring Provider Dermatology; Visit Provider Dermatology
DX: L12.0 Bullous pemphigoid (principal)
CPT/HCPCS: 80053; 85025; 85651; 86140

== ENCOUNTER → 2024-04-16 08:20 | Outpatient (CLI) | payer MEDICARE, OTHER, SELFPAY ==
[2024-04-16 09:26] LABS: Add Manual Diff / Slide Review NO; Basophils Absolute Auto 0 /uL (0-100); Basophils Percent Auto 0.2 % (0-2); Eosinophils Absolute Auto 0 /uL (0-450); Eosinophils Percent Auto 0.1 % (2-4); Hematocrit 44.5 % (41-53); Hemoglobin 15.1 g/dL (13.5-17.5); Lymphocytes Absolute Auto 900 /uL (1100-4500); Lymphocytes Percent Auto 9.1 % (25-40); Mean Corpuscular Hemoglobin 35.1 PG (26-34); Mean Corpuscular Volume 103.5 fL (80-100); Monocytes Absolute Auto 500 /uL (0-900); Monocytes Percent Auto 5.7 % (3-14); Neutrophils Absolute Auto 8000 /uL (1500-7000); Neutrophils Percent Auto 84.9 % (50-75); Platelet Count 181 X10^3/uL (150-400); Red Cell Distribution Width 16.3 % (11.6-14.8); White Blood Cell Count 9.4 X10^3/uL (4.5-11.0)
[2024-04-16 10:40] LABS: Alanine Aminotransferase 27 IU/L (<50); Albumin 3.6 g/dL (3.5-5.0); Albumin Globulin Ratio 1.4 (1.0-2.8); Alkaline Phosphatase 142 U/L (38-126); Aspartate Aminotransferase 31 IU/L (17-59); BUN Creatinine Ratio 29.6 (6-22); Blood Urea Nitrogen 24 mg/dL (9-20); Calcium 9.7 mg/dL (8.4-10.2); Carbon Dioxide 28 mmol/L (22-32); Chloride 95 mmol/L (98-107); Estimated Glomerular Filt Rate > 60 mL/min (>60); Globulin 2.5 g/dL (1.7-4.1); Glucose 86 mg/dL (80-110); HEMOLYSIS < 15 (0-50); Potassium 4.5 mmol/L (3.4-5.1); Sodium 128 mmol/L (137-145); Total Protein 6.1 g/dL (6.3-8.2)
== END ==
PROVIDERS: PCP Family Medicine; Referring Provider Dermatology; Visit Provider Dermatology
DX: L12.0 Bullous pemphigoid (principal); Z79.899 Other long term (current) drug therapy
CPT/HCPCS: 36415; 80053; 85025

== ENCOUNTER → 2024-04-29 09:14 | Outpatient (CLI) | payer MEDICARE, OTHER, SELFPAY ==
--- NOTE | 2024-04-29 09:26 | DI.CT.S_ITS ---
PROCEDURE: CT CHEST WO CON INDICATIONS: possible lung infection TECHNIQUE: Noncontrast 5 mm thick sections acquired from the pulmonary apices to the posterior costophrenic angles. 1 mm lung window, 5 mm thick coronal and sagittal and 7 mm axial MIP reformats were then acquired. For radiation dose reduction, the following was used: automated exposure control, adjustment of mA and/or kV according to patient size. COMPARISON: [facility], CT, CT CHEST WO CON, 05/23/2021, 11:28. FINDINGS: Cardiovascular and Mediastinum: Heart size is normal. No evidence of thoracic aortic aneurysm. Pulmonary vasculature is unremarkable. No hiatal hernia. Thyroid gland unremarkable. Lungs and Pleural Spaces: The lung brown are clear without nodule, infiltrate or interstitial prominence. Pleural spaces show no effusion or pneumothorax. Lymph Nodes: No mediastinal, hilar or axillary adenopathy. Musculoskeletal: Old healed right-sided rib fractures. Left shoulder arthroplasty. Lower cervical spine discectomy and fusion with instrumentation. Thoracic spine unremarkable. Chest wall and sternum intact. No lytic or blastic lesions. Upper abdomen: Visualized portions of the liver, spleen and kidneys are unremarkable. IMPRESSION: Lungs and pleural spaces are clear. No evidence of lung infection. Old healed right-sided rib fractures. Degenerative disc disease and arthropathy. Approved by: Juan Antonio Javier M.D. on 04/29/2024 at 11:15
== END ==
PROVIDERS: PCP Family Medicine; Referring Provider Family Medicine; Visit Provider Family Medicine
DX: R09.89 Other specified symptoms and signs involving the circulatory and respiratory systems (principal); Z87.81 Personal history of (healed) traumatic fracture; Z98.1 Arthrodesis status; Z96.612 Presence of left artificial shoulder joint
CPT/HCPCS: 71250

== ENCOUNTER → 2024-05-08 08:25 | Outpatient (CLI) | payer MEDICARE, OTHER, SELFPAY ==
[2024-05-08 10:28] LABS: Alanine Aminotransferase 23 IU/L (<50); Albumin 4.1 g/dL (3.5-5.0); Albumin Globulin Ratio 1.9 (1.0-2.8); Alkaline Phosphatase 127 U/L (38-126); Aspartate Aminotransferase 32 IU/L (17-59); Bilirubin Total 1.1 mg/dL (0.2-1.3); Blood Urea Nitrogen 17 mg/dL (9-20); Calcium 9.8 mg/dL (8.4-10.2); Carbon Dioxide 28 mmol/L (22-32); Chloride 97 mmol/L (98-107); Cholesterol 232 mg/dL (140-199); Estimated Glomerular Filt Rate > 60 mL/min (>60); Gamma Glutamyl Transpeptidase 44 U/L (15-73); Globulin 2.2 g/dL (1.7-4.1); Glucose 72 mg/dL (80-110); HDL Cholesterol 105 mg/dL (40-60); HEMOLYSIS < 15 (0-50); LDL Cholesterol Calculated 111 mg/dL (<100); Potassium 4.6 mmol/L (3.4-5.1); Sodium 132 mmol/L (137-145); Total Protein 6.3 g/dL (6.3-8.2); Triglycerides 81 mg/dL (35-150)
== END ==
PROVIDERS: PCP Family Medicine; Referring Provider Family Medicine; Visit Provider Family Medicine
DX: Z79.01 Long term (current) use of anticoagulants (principal); I48.91 Unspecified atrial fibrillation; E87.1 Hypo-osmolality and hyponatremia; G47.00 Insomnia, unspecified; L12.0 Bullous pemphigoid; R03.0 Elevated blood-pressure reading, without diagnosis of hypertension; K21.9 Gastro-esophageal reflux disease without esophagitis; Z79.899 Other long term (current) drug therapy; D69.2 Other nonthrombocytopenic purpura; E78.1 Pure hyperglyceridemia
CPT/HCPCS: 36415; 80053; 80061; 82977

== ENCOUNTER → 2024-05-25 14:02 | Outpatient (CLI) | payer MEDICARE, OTHER, SELFPAY ==
--- NOTE | 2024-05-25 14:03 | DI.RAD.S_ITS ---
PROCEDURE: XR LUMBAR SPINE MIN 4V INDICATIONS: BACK PAIN TECHNIQUE: 5 views of the lumbar spine were acquired, including bilateral oblique views. COMPARISON: None. FINDINGS: Bones: 5 nonrib-bearing vertebrae are present. There is mild levoscoliosis of lumbar spine with apex at T12-L1 level. 6 millimeter retrolisthesis of L1 on L2 and L2 on L3 is seen. There is also 11 millimeter anterolisthesis of L4 on L5. No vertebral body compression fractures. Degenerative endplate changes and loss of disc height with bilateral facet arthrosis throughout lumbar spine is seen. No suspicious bony lesions. Patient is status post right total hip arthroplasty with anatomic right hip alignment. Soft tissues: Overlying bowel gas pattern is normal. No suspicious soft tissue calcifications. Oblique images: No gross pars defects. Bilateral bony foraminal stenosis at L3-4 through L5-S1 levels are seen. IMPRESSION: 1. Mild levoscoliosis of lumbar spine centered at T12-L1 level. 6 millimeter anterolisthesis of L1 on L2 and L2 on L3 and 11 millimeter anterolisthesis of L4 on L5. No acute compression fracture. Degenerative disc disease throughout lumbar spine. 2. No gross pars defects. Suggestion of bilateral bony foraminal stenosis at L3-4 through L5-S1 levels. Dictated by: Ge Baltazar M.D. on 05/25/2024 at 14:39 Approved by: Ge Baltazar M.D. on 05/25/2024 at 15:11
== END ==
PROVIDERS: PCP Family Medicine; Referring Provider Physical Medicine & Rehabilitation; Visit Provider Physical Medicine & Rehabilitation
DX: M47.27 Other spondylosis with radiculopathy, lumbosacral region (principal); M51.16 Intervertebral disc disorders with radiculopathy, lumbar region; M41.9 Scoliosis, unspecified; M43.16 Spondylolisthesis, lumbar region; Z96.641 Presence of right artificial hip joint
CPT/HCPCS: 72110

== ENCOUNTER → 2024-05-29 15:49 | Outpatient (CLI) | payer MEDICARE, OTHER, SELFPAY ==
[2024-05-29 17:45] LABS: Add Manual Diff / Slide Review NO; Basophils Absolute Auto 0 /uL (0-100); Basophils Percent Auto 0.2 % (0-2); Eosinophils Absolute Auto 0 /uL (0-450); Eosinophils Percent Auto 0.3 % (2-4); Hematocrit 39.4 % (41-53); Hemoglobin 13.5 g/dL (13.5-17.5); Lymphocytes Absolute Auto 1100 /uL (1100-4500); Lymphocytes Percent Auto 13.3 % (25-40); Mean Corpuscular HGB Conc 34.2 % (30-36); Mean Corpuscular Hemoglobin 36.2 PG (26-34); Mean Corpuscular Volume 105.6 fL (80-100); Monocytes Absolute Auto 600 /uL (0-900); Monocytes Percent Auto 7.6 % (3-14); Neutrophils Absolute Auto 6700 /uL (1500-7000); Neutrophils Percent Auto 78.6 % (50-75); Platelet Count 250 X10^3/uL (150-400); Red Blood Cell Count 3.73 X10^6/uL (4.5-5.9); Red Cell Distribution Width 15.4 % (11.6-14.8); White Blood Cell Count 8.5 X10^3/uL (4.5-11.0)
[2024-05-29 18:08] LABS: Alanine Aminotransferase 21 IU/L (<50); Albumin 3.8 g/dL (3.5-5.0); Albumin Globulin Ratio 1.9 (1.0-2.8); Alkaline Phosphatase 123 U/L (38-126); Aspartate Aminotransferase 29 IU/L (17-59); BUN Creatinine Ratio 25.6 (6-22); Bilirubin Total 0.6 mg/dL (0.2-1.3); Blood Urea Nitrogen 20 mg/dL (9-20); Calcium 9.5 mg/dL (8.4-10.2); Carbon Dioxide 27 mmol/L (22-32); Chloride 100 mmol/L (98-107); Estimated Glomerular Filt Rate > 60 mL/min (>60); Glucose 93 mg/dL (80-110); HEMOLYSIS < 15 (0-50); Potassium 4.3 mmol/L (3.4-5.1); Sodium 134 mmol/L (137-145); Total Protein 5.8 g/dL (6.3-8.2)
== END ==
PROVIDERS: PCP Family Medicine; Referring Provider Dermatology; Visit Provider Dermatology
DX: L12.0 Bullous pemphigoid (principal); Z79.899 Other long term (current) drug therapy
CPT/HCPCS: 36415; 80053; 85025

== ENCOUNTER → 2024-06-05 08:47 | Outpatient (CLI) | payer MEDICARE, OTHER, SELFPAY ==
--- NOTE | 2024-06-05 08:48 | DI.MRI.S_ITS ---
PROCEDURE: MR LUMBAR SPINE WO CON INDICATIONS: progressive spinal stenosis compared with previous TECHNIQUE: Noncontrast sagittal T1 spin echo and T2 fast echo, sagittal STIR, and T2 fast spin echo through the lumbar spine. In cases with scoliosis, additional coronal T2 fast spin echo may be performed. COMPARISON: [facility], CT, CT CHEST ABD PEL W CON, 06/16/2021, 10:41. [facility], MR, MR LUMBAR SPINE WO/W CON, 04/27/2021, 7:58. [facility], MR, MR LUMBAR SPINE WO CON, 06/18/2019, 15:59. [facility], CR, XR LUMBAR SPINE MIN 4V, 05/25/2024, 14:12. FINDINGS: Image quality: This examination is limited by involuntary motion artifact. Alignment and Curvature: Puuh-or-skblbrmj levoconvex scoliotic curvature is noted. Minimal retrolisthesis can be seen at L1-L2, L2-L3, and L3-L4. Grade 1 anterolisthesis is seen at the L4-L5 level, without associated pars defects. Minimal retrolisthesis is seen at L5-S1. Bone Marrow: Marrow is of normal overall signal. No acute vertebral body compression fractures. Spinal Cord: Conus medullaris terminates at the L1 level. Visualized cord demonstrates normal signal and size. Paraspinous Soft Tissues: No paravertebral masses. T12-L1: Bridging endplate osteophytes are seen. No neural foraminal narrowing or central canal narrowing can be seen. L1-L2: The disc height is well preserved. Increased STIR signal can be seen along this disc level, which is similar to 202. Bridging endplate osteophytes are seen. There is mild left-sided and nvha-mk-lzkvjmnp right-sided neural foraminal narrowing. No significant central canal narrowing is seen. When comparison is made with the prior images, these findings are similar. L2-L3: Moderate loss of disc height is seen. Loss of disc signal is seen. Bridging endplate osteophytes are seen. Moderate disc bulge is seen, which is eccentric to the right. Mild to moderate facet hypertrophy is seen. There is cemu-ce-rpjqaiqu right-sided and at least moderate left-sided neural foraminal narrowing. Moderate central canal narrowing is seen. When comparison is made with the prior images, these findings are similar. L3-L4: Moderate loss of disc height is seen. Loss of disc signal is seen. Reactive marrow endplate changes are seen, which are hyperintense on T1-weighted and T2-weighted imaging and most consistent with fatty metaplasia (Modic type II changes). Moderate disc bulge is seen, which is eccentric to the right. Moderate facet joint hypertrophy is seen. There is at least moderate bilateral neural foraminal narrowing seen. There is a degree of compression seen upon the exiting nerve roots. Moderate central canal narrowing is seen. These imaging findings have progressed compared to the prior study. L4-L5: The disc height is well-preserved. Loss of disc signal is seen at this level. Moderate disc bulge is seen, with a central disc protrusion. Prominent facet hypertrophy can be seen at this level. Moderate bilateral neural foraminal narrowing is seen. At least moderate central canal narrowing is seen, as on series 6, image 25. These imaging findings have progressed compared to the prior study. L5-S1: At least moderate loss of disc height and disc signal can be seen. Moderate disc bulge is seen, with a central disc protrusion. There is a focal annular fissure seen posteriorly. There is mild right-sided and efmx-ba-onxmiqtd left-sided facet hypertrophy. Moderate bilateral neural foraminal narrowing is seen. Mild central canal narrowing is seen. When comparison is made with the prior images, these findings are similar. IMPRESSION: Multiple levels of significant lumbar spine degenerative change can be seen, which have progressed at a few levels compared to 2020. Jfni-rj-gngapyqc levoconvex lumbar scoliosis is seen. Dictated by: Jethro Hercules M.D. on 06/05/2024 at 9:11 Approved by: Jethro Hercules M.D. on 06/05/2024 at 9:18
[2024-06-05 15:42] LABS: INR 2.6 (0.9-1.3); Prothrombin Time 28.9 SECONDS (9.4-12.5)
[2024-06-05 15:44] LABS: PTT Partial Thromboplastin Tim 44 SECONDS (25.1-36.5)
[2024-06-05 15:46] LABS: D Dimer < 215 ng/ml (<500)
[2024-06-05 16:39] LABS: Vitamin B12 511 pg/mL (239-931)
== END ==
PROVIDERS: Dermatology; PCP Family Medicine; Referring Provider Physical Medicine & Rehabilitation; Visit Provider Physical Medicine & Rehabilitation
DX: M47.26 Other spondylosis with radiculopathy, lumbar region (principal); M47.27 Other spondylosis with radiculopathy, lumbosacral region; L12.0 Bullous pemphigoid; M41.9 Scoliosis, unspecified; Z79.899 Other long term (current) drug therapy
CPT/HCPCS: 36415; 72148; 82607; 85379; 85610; 85730

== ENCOUNTER → 2024-06-30 13:08 | Outpatient (CLI) | payer MEDICARE, OTHER, SELFPAY | PROVIDERS: PCP Family Medicine; Referring Provider Family Medicine; Visit Provider Surgery | DX: L97.822 Non-pressure chronic ulcer of other part of left lower leg with fat layer exposed (principal); I87.2 Venous insufficiency (chronic) (peripheral); R60.0 Localized edema; I48.91 Unspecified atrial fibrillation; Z79.01 Long term (current) use of anticoagulants | CPT/HCPCS: 11042; 87070; 87075; 87205; 99203; 99213 ==

== ENCOUNTER → 2024-07-07 09:33 | Outpatient (CLI) | payer MEDICARE, OTHER, SELFPAY | PROVIDERS: PCP Family Medicine; Referring Provider Family Medicine; Visit Provider Surgery | DX: L97.822 Non-pressure chronic ulcer of other part of left lower leg with fat layer exposed (principal); I87.2 Venous insufficiency (chronic) (peripheral); R60.0 Localized edema; Z79.01 Long term (current) use of anticoagulants; Z86.718 Personal history of other venous thrombosis and embolism; Z79.52 Long term (current) use of systemic steroids | CPT/HCPCS: 11042 ==

== ENCOUNTER → 2024-07-15 10:27 | Outpatient (CLI) | payer MEDICARE, OTHER, SELFPAY | PROVIDERS: PCP Family Medicine; Referring Provider Family Medicine; Visit Provider Surgery | DX: L97.822 Non-pressure chronic ulcer of other part of left lower leg with fat layer exposed (principal); I87.2 Venous insufficiency (chronic) (peripheral); R60.0 Localized edema; R23.4 Changes in skin texture | CPT/HCPCS: 11042 ==

== ENCOUNTER → 2024-07-21 08:45 | Outpatient (CLI) | payer MEDICARE, OTHER, SELFPAY | LOC: WC 08:46 | PROVIDERS: PCP Family Medicine; Referring Provider Family Medicine; Visit Provider Surgery | DX: L97.822 Non-pressure chronic ulcer of other part of left lower leg with fat layer exposed (principal); I87.2 Venous insufficiency (chronic) (peripheral); R60.0 Localized edema; Z79.52 Long term (current) use of systemic steroids | CPT/HCPCS: 11042 ==

== ENCOUNTER → 2024-08-04 08:47 | Outpatient (CLI) | payer MEDICARE, OTHER, SELFPAY | PROVIDERS: PCP Family Medicine; Referring Provider Family Medicine; Visit Provider Surgery | DX: L97.822 Non-pressure chronic ulcer of other part of left lower leg with fat layer exposed (principal); I87.2 Venous insufficiency (chronic) (peripheral); R60.0 Localized edema; Z79.52 Long term (current) use of systemic steroids; Z86.718 Personal history of other venous thrombosis and embolism; Z79.01 Long term (current) use of anticoagulants | CPT/HCPCS: 11042; 99213 ==

== ENCOUNTER → 2024-08-18 09:16 | Outpatient (CLI) | payer MEDICARE, OTHER, SELFPAY | LOC: WC 09:18 | PROVIDERS: PCP Family Medicine; Referring Provider Family Medicine; Visit Provider Surgery | DX: L98.8 Other specified disorders of the skin and subcutaneous tissue (principal); S81.012A Laceration without foreign body, left knee, initial encounter; I87.2 Venous insufficiency (chronic) (peripheral) | CPT/HCPCS: 11042; 99213 ==

== ENCOUNTER 2024-09-16 08:15 | Outpatient (RCR) | payer MEDICARE, OTHER, SELFPAY ==
--- NOTE | 2024-09-04 16:00 | PT.OIE ---
Current Diagnoses Stiffness of right knee, not elsewhere classified (09/04/24) Other spondylosis with radiculopathy, lumbosacral region (09/04/24) Spondylosis without myelopathy or radiculopathy, site unspecified (09/04/24) Other specified soft tissue disorders (09/04/24) Difficulty in walking, not elsewhere classified (09/04/24) Unsteadiness on feet (09/04/24) Other abnormalities of gait and mobility (09/04/24) Weakness (09/04/24) Arthrodesis status (09/04/24) Past Medical History (Last Updated 05/27/24 @ 16:25 by Joce Curtis DO) Abdominal hernia Afib Bullous pemphigoid Chronic anticoagulation DJD of both shoulders Facet arthropathy, multilevel GI bleed History of colon cancer (~2018) Intussusception Left shoulder pain Liver lesion Lumbosacral spondylosis with radiculopathy PND (post-nasal drip) Pneumonia Sacral dysfunction Small bowel obstruction Past Surgical History (Last Reviewed 05/27/24 @ 16:15 by Joce Curtis DO) H/O hernia repair H/O total hip arthroplasty History of colectomy (~2018) History of colonoscopy Status post cervical spinal fusion Visit Care Team Role Provider Type Perry Lamas MD Attending Provider Physician Family Provider Primary Care Provider Referring Provider Specialty: Family Practice Address: [address] [place] [address] Email: [email or web address] Physical Therapy Initial Evaluation PT-OP-A Visit Information Start: 09/03/24 15:52 Freq: Status: Active Protocol: Document 09/04/24 11:27 NM (Rec: 09/04/24 12:22 NM [id number]) Out-Patient Physical Therapy Visit Information Visit Information Visit Type Initial Evaluation Visit Note KX after 19 visits Visit Start Time 11:30 Visit Stop Time 12:15 Visit Number 1 Evaluation Information Evaluation Date 09/04/24 Precautions Precautions Fall Risk PT-OP-B Current Condition Start: 09/03/24 15:52 Freq: Status: Active Protocol: Document 09/04/24 11:27 NM (Rec: 09/04/24 12:22 NM [id number]) Current Condition History of Current Condition Onset Date ongoing History of Current Condition Pt presents with balance issues. He has had several falls, including 2 a month. He reports that he falls with turning, catching his feet on objects. Denies dizziness or lightheadedness. He was using a spc until recently, states that had been using it for month. He started using the cane due to a lack of confidence. States that he feels comfortable with the distance, states 2 blocks. Lives on the 2nd story of a home (just driveway going up, bedroom/living room). Goes to basement, has stairs with rails. Walks down the inclined driveway using the spc. He reports that reaching to top of closet, throws off his balance. Reports transfers from low chair. Gets up 1-3x/ night to go bathroom, has not caused falls. Hx of sciatic over 10 years (not currently, managed with injections), last episode 3 months ago but reports most previous one was in 2019. Works out 5x/wk at [employer] (elliptical, treadmill, weight machines). Denies back pain and does not want to work on PT for his back. Treatment Goals Patient/Caregiver Goals use of AD, balance and confidence PT-OP-C Subjective Start: 09/03/24 15:52 Freq: Status: Active Protocol: Document 09/04/24 11:27 NM (Rec: 09/04/24 12:22 NM [id number]) OP-PT Subjective Patient Comments Patient Comments Pt consents to participate in PT evaluation Patient Questionnaires ABC- Activity Specific Balance Confidence Scale ABC Score 53.8% Dizziness Handicap Inventory DHI Score 20 Lower Extremity Functional Scale LEFS Score 57/80 Other Questionnaire Name and Score Falls Efficacy Scale: 64 PT-OP-D Balance Start: 09/03/24 15:52 Freq: Status: Active Protocol: Document 09/04/24 11:27 NM (Rec: 09/04/24 12:22 NM [id number]) Balance Tests Crouch Balance Test Crouch Balance Test Score 29/56 PT-OP-E Functional Tests Start: 09/03/24 15:52 Freq: Status: Active Protocol: Document 09/04/24 11:27 NM (Rec: 09/04/24 12:22 NM [id number]) Functional Tests 6 Minute Walk Test Distance 671 ft Device Used none Comments CGA d/t balance, prn stumbles w/o fall, unsteady turns, obstacle mgmt Five Times Sit to Stand Test Score 15 Comments CGA last 2 reps d/t LOB Timed Up and Go (TUG) Score 22 Comments c/ and c/o AD PT-OP-G Mobility & Gait Start: 09/03/24 15:52 Freq: Status: Active Protocol: Document 09/04/24 11:27 NM (Rec: 09/04/24 12:22 NM [id number]) OP Gait Assessment Gait Gait Assistance Required: Contact Guard Assist Distance (Feet) 150 Assistive Devices Assistive Device Gait Belt Gait Deviations General Gait Pattern Antalgic,Decreased Feet Clearance,Flexed Trunk,Wide Based Gait Factors Limiting Gait Function Factors Limiting Gait Function Decreased Activity Tolerance, Decreased Strength,Limited Range of Motion,Poor Balance Comments Gait Comments B knee flex, wide based gait with knees in varus. Decreased foot clearance B. Strong forward trunk lean and R truncal shift (postural) Stair Climbing Evaluation Comments Stair Climbing Comments 1 rail, recip up, setp to down PT-OP-J Posture/Palpation/Skin Start: 09/03/24 15:52 Freq: Status: Active Protocol: Document 09/04/24 11:27 NM (Rec: 09/04/24 12:22 NM [id number]) Posture Evaluation Position Standing Head/C-Spine Posture Forward Head T-Spine Posture Increased Kyphosis L-Spine Posture Increased Lordosis Shoulder Posture (L) Rounded,(R) Rounded Hip Posture (L) Externally Rotated,(R) Externally Rotated Knee Posture (L) Genu Varus,(R) Genu Varus Comments Posture Comments Increasd kyphosis. R trunk lean in sitting, standing/gait , slight trunk rotation PT-OP-K Range of Motion Start: 09/03/24 15:52 Freq: Status: Active Protocol: Document 09/04/24 11:27 NM (Rec: 09/04/24 12:22 NM [id number]) Knee Goniometric Range of Motion Knee ROM Limitations Comments Observable limitations in hamstring length B Ankle and Foot Goniometric Range of Motion Ankle and Foot ROM Limitations Comments Observable limitations in calf length B PT-OP-M Strength Start: 09/03/24 15:52 Freq: Status: Active Protocol: Document 09/04/24 11:27 NM (Rec: 09/04/24 12:22 NM [id number]) Trunk Strength Trunk Manual Muscle Testing Flexion 3 Fair Extension 3 Fair Rotation Left 3 Fair Rotation Right 3 Fair Lateral Flexion Left 3 Fair Lateral Flexion Right 3 Fair Hip Strength Hip Manual Muscle Testing Right Flexion (L2) 4 Good Extension (S1) 3+ Fair+ Abduction 4- Good- Adduction 4 Good External Rotation 3+ Fair+ Internal Rotation 3+ Fair+ Left Flexion (L2) 4- Good- Extension (S1) 4- Good- Abduction 4- Good- Adduction 4- Good- External Rotation 3+ Fair+ Internal Rotation 3+ Fair+ Knee Strength Knee Manual Muscle Testing Right Flexion (S2) 4 Good Extension (L3) 4 Good Left Flexion (S2) 4 Good Extension (L3) 4 Good Ankle/Foot Strength Ankle and Foot Manual Muscle Testing Right Dorsiflexion (L4) 4- Good- Plantarflexion (S1) 4- Good- Inversion 3+ Fair+ Eversion (S1) 3+ Fair+ Comments limited ROM Left Dorsiflexion (L4) 4- Good- Plantarflexion (S1) 4- Good- Inversion 3+ Fair+ Eversion (S1) 3+ Fair+ PT-OP-Q Treatments Start: 09/03/24 15:52 Freq: Status: Active Protocol: Document 09/04/24 11:27 NM (Rec: 09/04/24 12:22 NM [id number]) Gait Training Gait Activity spc Device Used spc Level of Assistance close SBA Surface stable Distance/Duration 8 min Treatment Focus sequencing, placement, safety, education Comments Pt did not bring spc to session. Uses in R hand but switches. Cueing provided for 2 pt pattern, spc placement, sequencing. Moderate cueing to actually place spc on the ground Self-Care/Home Management Treatment Education Patient Education Fall Risk,Safety Other Education Strong education to pt with recommendation for use of spc all the time in community and in household due to balance scores, instability with transfers PT-OP-T Assessment and Plan Start: 09/03/24 15:52 Freq: Status: Active Protocol: Document 09/04/24 11:27 NM (Rec: 09/04/24 12:22 NM [id number]) Physical Therapy Assessment Rehab Potential Rehabilitation Potential Fair Evaluation Complexity Number of Personal Factors/Comorbidities 1-2 Number of Body Systems Impaired 1-2 Clinical Presentation at Evaluation Stable Impairments Impairments Activity Tolerance,Balance, Edema,Functional Activities, Functional Mobility,Gait, Integument,Pain,Posture,ROM, Sensation,Soft Tissue Mobility ,Strength,Transfers,Vestibular Other Concerns Fall Risk high Age Related Concerns PMH: falls; surgeries: R JEFFERSON, L rTSA Barriers to Rehabilitation Pt informed PT that he does not want to use a spc because he does not need one. He is concerned about his 2 friends who fell and broke hips recently. Pt also referred for low back but does not want to treat low back at this time Goals Four Impairment 6 MWT distance 671 ft, gait speed 0.67 m/s w/o AD Neuroscientist Goal (LTG) Pt will demonstrate increased step length at least 50% of the time with AD use during gait to increase gait speed and improve stability during ambulation and exercises LTG Duration 10/30/24 Three Impairment 5x STS 15 with CGA, instability d/t weakness, unsteadiness Short Term Goal (STG) Pt will be able to perform at least 5 STS from standard chair with or without UE assist and no LOB for improved stability with transfers STG Duration 10/09/24 Two Impairment TUG time 22, indicating increased risk of falls in community, need for AD Short Term Goal (STG) Pt will be educated on LRAD use and fitted for most appropriate LRAD in order to decrease fall risk STG Duration 10/02/24 Senior Living Goal (LTG) Pt will decrease TUG time <20 with LRAD in order to demonstrate decreased risk of falls during community and household ambulation LTG Duration 10/30/24 One Impairment Crouch 29/56, indicates increased risk of falls Short Term Goal (STG) Pt will report 1 or fewer falls ea month (currently at least 2 per month) STG Duration 6 weeks Senior Living Goal (LTG) Pt will increase Crouch balance score to at least 36/56 (1 MCID) in order to demonstrate decreased fall risk LTG Duration 8 weeks Assessment Summary Assessment Pt is an 84 y.o. presenting to clinic with abnormalities of gait and balance. Pt recently began using an AD for balance but is resistant to use it unless he feels like he needs it. He has impairments in ROM , strength, posture, activity tolerance, gait, gait speed, and balance. His TUG time and Crouch balance score indicate increased risk of falls. Pt also has a hx of fall including falls at least 2x/ month. Pt also referred for his low back due to history of radicular symptoms; however, pt declines to have low back evaluation at this time and wants to focus more on his balance/falls. He demonstrates unsteadiness with transfers and needs assist from PT to maintain balance; BLE fatigues quickly. PT educated pt on exam findings and plan of care . Pt would benefit from skilled PT for progressive strengthening, gait, and balance training in order to reduce fall risk and increase independence at home. Physical Therapy Plan Frequency and Duration Frequency of Treatment 2x/Week Duration of treatment (weeks) 8 Plan of Care Start Date 09/04/24 Plan of Care End Date 10/30/24 Therapeutic Interventions Therapeutic Interventions Balance Training,Canalithic Repositioning,Gait Training, Home Exercise Program,Joint Mobilizations,Manual Therapy, Neuromuscular Re-education, Orthotic/Prosthetic Management ,Patient/Caregiver Education, Self-Care/Home Management, Sensory Integration,Soft Tissue Mobilization, Therapeutic Activities, Therapeutic Exercises, Vestibular Rehabilitation Modalities Cold Pack/Ice Massage,Electric Stimulation,Hot Packs, Ultrasound Next Visit Focus/Plan Next Note Type Treatment Note Next Visit Plan Initiate HEP. Gait training with spc vs more stable LRAD in future if needed. Hurdles, balance training with changing ORION. STS training, BLE strengthening of quads/hip abd /glutes. stretch HS, calves.
--- NOTE | 2024-09-07 12:20 | PT.OTN ---
Current Diagnoses Stiffness of right knee, not elsewhere classified (09/07/24) Other spondylosis with radiculopathy, lumbosacral region (09/07/24) Spondylosis without myelopathy or radiculopathy, site unspecified (09/07/24) Other specified soft tissue disorders (09/07/24) Difficulty in walking, not elsewhere classified (09/07/24) Unsteadiness on feet (09/07/24) Other abnormalities of gait and mobility (09/07/24) Weakness (09/07/24) Arthrodesis status (09/07/24) Physical Therapy Treatment Note PT-OP-A Visit Information Start: 09/03/24 15:52 Freq: Status: Active Protocol: Document 09/07/24 07:26 NM (Rec: 09/07/24 12:20 NM [id number]) Out-Patient Physical Therapy Visit Information Visit Information Visit Type Treatment Note Visit Note KX after 19 visits Visit Start Time 07:34 Visit Stop Time 08:14 Visit Number 2 Evaluation Information Evaluation Date 09/04/24 Precautions Precautions Fall Risk PT-OP-B Current Condition Start: 09/03/24 15:52 Freq: Status: Active Protocol: Document 09/04/24 11:27 NM (Rec: 09/04/24 12:22 NM [id number]) Current Condition History of Current Condition Onset Date ongoing History of Current Condition Pt presents with balance issues. He has had several falls, including 2 a month. He reports that he falls with turning, catching his feet on objects. Denies dizziness or lightheadedness. He was using a spc until recently, states that had been using it for month. He started using the cane due to a lack of confidence. States that he feels comfortable with the distance, states 2 blocks. Lives on the 2nd story of a home (just driveway going up, bedroom/living room). Goes to basement, has stairs with rails. Walks down the inclined driveway using the spc. He reports that reaching to top of closet, throws off his balance. Reports transfers from low chair. Gets up 1-3x/ night to go bathroom, has not caused falls. Hx of sciatic over 10 years (not currently, managed with injections), last episode 3 months ago but reports most previous one was in 2019. Works out 5x/wk at [employer] (elliptical, treadmill, weight machines). Denies back pain and does not want to work on PT for his back. Treatment Goals Patient/Caregiver Goals use of AD, balance and confidence PT-OP-C Subjective Start: 09/03/24 15:52 Freq: Status: Active Protocol: Document 09/07/24 07:26 NM (Rec: 09/07/24 12:20 NM [id number]) OP-PT Subjective Patient Comments Patient Comments Pt presents to clinic with spc , states wants to be able to keep balance without spc. PT-OP-D Balance Start: 09/03/24 15:52 Freq: Status: Active Protocol: Document 09/04/24 11:27 NM (Rec: 09/04/24 12:22 NM [id number]) Balance Tests Crouch Balance Test Crouch Balance Test Score 29/56 PT-OP-E Functional Tests Start: 09/03/24 15:52 Freq: Status: Active Protocol: Document 09/04/24 11:27 NM (Rec: 09/04/24 12:22 NM [id number]) Functional Tests 6 Minute Walk Test Distance 671 ft Device Used none Comments CGA d/t balance, prn stumbles w/o fall, unsteady turns, obstacle mgmt Five Times Sit to Stand Test Score 15 Comments CGA last 2 reps d/t LOB Timed Up and Go (TUG) Score 22 Comments c/ and c/o AD PT-OP-G Mobility & Gait Start: 09/03/24 15:52 Freq: Status: Active Protocol: Document 09/04/24 11:27 NM (Rec: 09/04/24 12:22 NM [id number]) OP Gait Assessment Gait Gait Assistance Required: Contact Guard Assist Distance (Feet) 150 Assistive Devices Assistive Device Gait Belt Gait Deviations General Gait Pattern Antalgic,Decreased Feet Clearance,Flexed Trunk,Wide Based Gait Factors Limiting Gait Function Factors Limiting Gait Function Decreased Activity Tolerance, Decreased Strength,Limited Range of Motion,Poor Balance Comments Gait Comments B knee flex, wide based gait with knees in varus. Decreased foot clearance B. Strong forward trunk lean and R truncal shift (postural) Stair Climbing Evaluation Comments Stair Climbing Comments 1 rail, recip up, setp to down PT-OP-J Posture/Palpation/Skin Start: 09/03/24 15:52 Freq: Status: Active Protocol: Document 09/04/24 11:27 NM (Rec: 09/04/24 12:22 NM [id number]) Posture Evaluation Position Standing Head/C-Spine Posture Forward Head T-Spine Posture Increased Kyphosis L-Spine Posture Increased Lordosis Shoulder Posture (L) Rounded,(R) Rounded Hip Posture (L) Externally Rotated,(R) Externally Rotated Knee Posture (L) Genu Varus,(R) Genu Varus Comments Posture Comments Increasd kyphosis. R trunk lean in sitting, standing/gait , slight trunk rotation PT-OP-K Range of Motion Start: 09/03/24 15:52 Freq: Status: Active Protocol: Document 09/04/24 11:27 NM (Rec: 09/04/24 12:22 NM [id number]) Knee Goniometric Range of Motion Knee ROM Limitations Comments Observable limitations in hamstring length B Ankle and Foot Goniometric Range of Motion Ankle and Foot ROM Limitations Comments Observable limitations in calf length B PT-OP-M Strength Start: 09/03/24 15:52 Freq: Status: Active Protocol: Document 09/04/24 11:27 NM (Rec: 09/04/24 12:22 NM [id number]) Trunk Strength Trunk Manual Muscle Testing Flexion 3 Fair Extension 3 Fair Rotation Left 3 Fair Rotation Right 3 Fair Lateral Flexion Left 3 Fair Lateral Flexion Right 3 Fair Hip Strength Hip Manual Muscle Testing Right Flexion (L2) 4 Good Extension (S1) 3+ Fair+ Abduction 4- Good- Adduction 4 Good External Rotation 3+ Fair+ Internal Rotation 3+ Fair+ Left Flexion (L2) 4- Good- Extension (S1) 4- Good- Abduction 4- Good- Adduction 4- Good- External Rotation 3+ Fair+ Internal Rotation 3+ Fair+ Knee Strength Knee Manual Muscle Testing Right Flexion (S2) 4 Good Extension (L3) 4 Good Left Flexion (S2) 4 Good Extension (L3) 4 Good Ankle/Foot Strength Ankle and Foot Manual Muscle Testing Right Dorsiflexion (L4) 4- Good- Plantarflexion (S1) 4- Good- Inversion 3+ Fair+ Eversion (S1) 3+ Fair+ Comments limited ROM Left Dorsiflexion (L4) 4- Good- Plantarflexion (S1) 4- Good- Inversion 3+ Fair+ Eversion (S1) 3+ Fair+ PT-OP-Q Treatments Start: 09/03/24 15:52 Freq: Status: Active Protocol: Document 09/07/24 07:26 NM (Rec: 09/07/24 12:20 NM [id number]) Therapeutic Exercises Sitting Exercises hamstring stretch Sitting Exercise Name HEP Side bilateral Equipment Used sitting on edge of chair Reps/Minutes 2x60 ea toe raises Sitting Exercise Name HEP Side bilateral Resistance AROM Reps/Minutes 30x5 holds Comments cued alignment hip abduction Sitting Exercise Name glute medius isometric Side bilateral Resistance level 3 band Reps/Minutes 60 Comments R more limited with ROM and strength than L Standing Exercises calf stretch Side bilateral Equipment Used CARLA, //bar hand support for balance Reps/Minutes 2x60 Comments edu that if pt does at home w/ 's wedge, needs stable UE support Gait Training Gait Activity spc Device Used spc Level of Assistance CGA-min A Surface stable Comments 1. gait training c/ spc: 2 pt sequencing, spc fit for height . Cueing extensively for spc position near body, not at angle and posture. Demos tendency R trunk lean 2. curbs 4 (indoors): unable to place spc on curb d/t length but cueing for positioning and sequencing, c/ step up/down. Poor trunk control with step down 3. hurdles: non-reciprocal. Challening for foot clearance and limb advancement. Neuro Re-Education Treatment Balance Activities changing ORION Details CGA Comments 1. lateral stepping at //bar, no UE support Cued neutral hip position, neutral foot position, tall posture 2. 2 step taps non- alternating Emphasis on WS, SLS, foot clearance 3. 2 step overs Non-reciprocal > reciprocal, more challening RLE stance and swing retro stepping Details fwd stepping c/ tall posture > retro stepping to transfer back to chair Surface stable Equipment hands hover over //bars Reps/Duration 3 sets x 10 ft ea Comments CGA SLS Details CGA Comments 1. c/o UE support: <1 sec ea side 2. c/ 1 finger on //bar: 10 sec ea side Education on spc use at home with rationale about use of stability Cued tall posture PT-OP-T Assessment and Plan Start: 09/03/24 15:52 Freq: Status: Active Protocol: Document 09/07/24 07:26 NM (Rec: 09/07/24 12:20 NM [id number]) Physical Therapy Assessment Goals Four Impairment 6 MWT distance 671 ft, gait speed 0.67 m/s w/o AD Penitentiary Goal (LTG) Pt will demonstrate increased step length at least 50% of the time with AD use during gait to increase gait speed and improve stability during ambulation and exercises LTG Duration 10/30/24 Three Impairment 5x STS 15 with CGA, instability d/t weakness, unsteadiness Short Term Goal (STG) Pt will be able to perform at least 5 STS from standard chair with or without UE assist and no LOB for improved stability with transfers STG Duration 10/09/24 Two Impairment TUG time 22, indicating increased risk of falls in community, need for AD Short Term Goal (STG) Pt will be educated on LRAD use and fitted for most appropriate LRAD in order to decrease fall risk STG Duration 10/02/24 Penitentiary Goal (LTG) Pt will decrease TUG time <20 with LRAD in order to demonstrate decreased risk of falls during community and household ambulation LTG Duration 10/30/24 One Impairment Crouch 29/56, indicates increased risk of falls Short Term Goal (STG) Pt will report 1 or fewer falls ea month (currently at least 2 per month) STG Duration 6 weeks Penitentiary Goal (LTG) Pt will increase Crouch balance score to at least 36/56 (1 MCID) in order to demonstrate decreased fall risk LTG Duration 8 weeks Assessment Summary Assessment Pt tolerated session well. RLE most limiting factor with exercises and foot clearance due to limitations in ROM in and weakness compared to LLE. Initiated stretching and strengthening to address limitations. Cueing needed for correct execution, safety and posture. Educated provided again on recommended spc use with education on SLS with and without UE support. Pt able to clear 2 but catches foot several times needing PT assist to correct on 4 step and 6 hurdles with spc. Increased time spent on weight shifting and gluteal/core activation during gait to address impairments. Pt would benefit from skilled PT for progressive gait and balance training in addition to flexibility and strength training in order to decrease fall risk and improve mobility . Physical Therapy Plan Frequency and Duration Frequency of Treatment 2x/Week Duration of treatment (weeks) 8 Plan of Care Start Date 09/04/24 Plan of Care End Date 10/30/24 Therapeutic Interventions Therapeutic Interventions Balance Training,Canalithic Repositioning,Gait Training, Home Exercise Program,Joint Mobilizations,Manual Therapy, Neuromuscular Re-education, Orthotic/Prosthetic Management ,Patient/Caregiver Education, Self-Care/Home Management, Sensory Integration,Soft Tissue Mobilization, Therapeutic Activities, Therapeutic Exercises, Vestibular Rehabilitation Modalities Cold Pack/Ice Massage,Electric Stimulation,Hot Packs, Ultrasound Next Visit Focus/Plan Next Note Type Treatment Note Next Visit Plan Gait training with spc vs more stable LRAD in future if needed. Hurdles, balance training with changing ORION, decrease visual input. Work on weight shift, posture, foot clearance. STS training, BLE strengthening of quads/hip abd /glutes. stretch HS, calves phillip RLE. can trial hip stretching on RLe if eulalio well
--- NOTE | 2024-09-10 14:30 | PT.OTN ---
Current Diagnoses Stiffness of right knee, not elsewhere classified (09/10/24) Other spondylosis with radiculopathy, lumbosacral region (09/10/24) Spondylosis without myelopathy or radiculopathy, site unspecified (09/10/24) Other specified soft tissue disorders (09/10/24) Difficulty in walking, not elsewhere classified (09/10/24) Unsteadiness on feet (09/10/24) Other abnormalities of gait and mobility (09/10/24) Weakness (09/10/24) Arthrodesis status (09/10/24) Physical Therapy Treatment Note PT-OP-A Visit Information Start: 09/03/24 15:52 Freq: Status: Active Protocol: Document 09/10/24 13:50 SP (Rec: 09/10/24 14:31 SP [id number]) Out-Patient Physical Therapy Visit Information Visit Information Visit Type Treatment Note Visit Note KX after 19 visits Visit Start Time 13:50 Visit Stop Time 14:30 Visit Number 3 Number of CHIEF [employer]MENT[employer]IT[employer] OFFICER Visits 1 Evaluation Information Evaluation Date 09/04/24 Precautions Precautions Fall Risk PT-OP-B Current Condition Start: 09/03/24 15:52 Freq: Status: Active Protocol: Document 09/04/24 11:27 NM (Rec: 09/04/24 12:22 NM [id number]) Current Condition History of Current Condition Onset Date ongoing History of Current Condition Pt presents with balance issues. He has had several falls, including 2 a month. He reports that he falls with turning, catching his feet on objects. Denies dizziness or lightheadedness. He was using a spc until recently, states that had been using it for month. He started using the cane due to a lack of confidence. States that he feels comfortable with the distance, states 2 blocks. Lives on the 2nd story of a home (just driveway going up, bedroom/living room). Goes to basement, has stairs with rails. Walks down the inclined driveway using the spc. He reports that reaching to top of closet, throws off his balance. Reports transfers from low chair. Gets up 1-3x/ night to go bathroom, has not caused falls. Hx of sciatic over 10 years (not currently, managed with injections), last episode 3 months ago but reports most previous one was in 2019. Works out 5x/wk at [employer] (elliptical, treadmill, weight machines). Denies back pain and does not want to work on PT for his back. Treatment Goals Patient/Caregiver Goals use of AD, balance and confidence PT-OP-C Subjective Start: 09/03/24 15:52 Freq: Status: Active Protocol: Document 09/10/24 13:50 SP (Rec: 09/10/24 14:31 SP [id number]) OP-PT Subjective Patient Comments Patient Comments Pt stated felt good after last tx. Is compliant with HEP. PT-OP-D Balance Start: 09/03/24 15:52 Freq: Status: Active Protocol: Document 09/04/24 11:27 NM (Rec: 09/04/24 12:22 NM [id number]) Balance Tests Crouch Balance Test Crouch Balance Test Score 29/56 PT-OP-E Functional Tests Start: 09/03/24 15:52 Freq: Status: Active Protocol: Document 09/04/24 11:27 NM (Rec: 09/04/24 12:22 NM [id number]) Functional Tests 6 Minute Walk Test Distance 671 ft Device Used none Comments CGA d/t balance, prn stumbles w/o fall, unsteady turns, obstacle mgmt Five Times Sit to Stand Test Score 15 Comments CGA last 2 reps d/t LOB Timed Up and Go (TUG) Score 22 Comments c/ and c/o AD PT-OP-G Mobility & Gait Start: 09/03/24 15:52 Freq: Status: Active Protocol: Document 09/04/24 11:27 NM (Rec: 09/04/24 12:22 NM [id number]) OP Gait Assessment Gait Gait Assistance Required: Contact Guard Assist Distance (Feet) 150 Assistive Devices Assistive Device Gait Belt Gait Deviations General Gait Pattern Antalgic,Decreased Feet Clearance,Flexed Trunk,Wide Based Gait Factors Limiting Gait Function Factors Limiting Gait Function Decreased Activity Tolerance, Decreased Strength,Limited Range of Motion,Poor Balance Comments Gait Comments B knee flex, wide based gait with knees in varus. Decreased foot clearance B. Strong forward trunk lean and R truncal shift (postural) Stair Climbing Evaluation Comments Stair Climbing Comments 1 rail, recip up, setp to down PT-OP-J Posture/Palpation/Skin Start: 09/03/24 15:52 Freq: Status: Active Protocol: Document 09/04/24 11:27 NM (Rec: 09/04/24 12:22 NM [id number]) Posture Evaluation Position Standing Head/C-Spine Posture Forward Head T-Spine Posture Increased Kyphosis L-Spine Posture Increased Lordosis Shoulder Posture (L) Rounded,(R) Rounded Hip Posture (L) Externally Rotated,(R) Externally Rotated Knee Posture (L) Genu Varus,(R) Genu Varus Comments Posture Comments Increasd kyphosis. R trunk lean in sitting, standing/gait , slight trunk rotation PT-OP-K Range of Motion Start: 09/03/24 15:52 Freq: Status: Active Protocol: Document 09/04/24 11:27 NM (Rec: 09/04/24 12:22 NM [id number]) Knee Goniometric Range of Motion Knee ROM Limitations Comments Observable limitations in hamstring length B Ankle and Foot Goniometric Range of Motion Ankle and Foot ROM Limitations Comments Observable limitations in calf length B PT-OP-M Strength Start: 09/03/24 15:52 Freq: Status: Active Protocol: Document 09/04/24 11:27 NM (Rec: 09/04/24 12:22 NM [id number]) Trunk Strength Trunk Manual Muscle Testing Flexion 3 Fair Extension 3 Fair Rotation Left 3 Fair Rotation Right 3 Fair Lateral Flexion Left 3 Fair Lateral Flexion Right 3 Fair Hip Strength Hip Manual Muscle Testing Right Flexion (L2) 4 Good Extension (S1) 3+ Fair+ Abduction 4- Good- Adduction 4 Good External Rotation 3+ Fair+ Internal Rotation 3+ Fair+ Left Flexion (L2) 4- Good- Extension (S1) 4- Good- Abduction 4- Good- Adduction 4- Good- External Rotation 3+ Fair+ Internal Rotation 3+ Fair+ Knee Strength Knee Manual Muscle Testing Right Flexion (S2) 4 Good Extension (L3) 4 Good Left Flexion (S2) 4 Good Extension (L3) 4 Good Ankle/Foot Strength Ankle and Foot Manual Muscle Testing Right Dorsiflexion (L4) 4- Good- Plantarflexion (S1) 4- Good- Inversion 3+ Fair+ Eversion (S1) 3+ Fair+ Comments limited ROM Left Dorsiflexion (L4) 4- Good- Plantarflexion (S1) 4- Good- Inversion 3+ Fair+ Eversion (S1) 3+ Fair+ PT-OP-Q Treatments Start: 09/03/24 15:52 Freq: Status: Active Protocol: Document 09/10/24 13:50 SP (Rec: 09/10/24 14:31 SP [id number]) Therapeutic Exercises Sitting Exercises STS Sitting Exercise Name trialed in PT- added to HEP Equipment Used BIG chair + black foam Reps/Minutes 10 reps Comments arms front cued hip abd asc/ desc /c HIP hinge slow descend sit hamstring stretch Sitting Exercise Name HEP Side bilateral Equipment Used sitting on edge of chair Reps/Minutes 2x60 ea Comments cued hands on lap, chest lift, hip hinge hip abduction Sitting Exercise Name glute medius isometric Side bilateral Resistance level 3 band Reps/Minutes 10 reps x2, 60 Comments R more limited ER with ROM and strength than L Standing Exercises resisted stepping Standing Exercise Name lateral, fwd, bwd Side bilateral Resistance TB #2 on shins Equipment Used assist donning Reps/Minutes 10 ft x3 laps each Comments cued posture, DF foot clerance , feet/shld/hips face wall DF holds Standing Exercise Name added to HEp /c HO Resistance AROM Equipment Used back to rail Reps/Minutes 5 SH x20 reps Comments SPC support 1/2 the time calf stretch Standing Exercise Name reviewed Side bilateral Equipment Used CARLA, outside stair rail support Reps/Minutes 2x60 Comments edu tall posturr, needs stable UE support Gait Training Gait Activity curb mgt Description future spc Device Used spc Level of Assistance CGA-min A Surface stable Comments 1. gait training c/ spc: 2 pt sequencing, increased ORION /c R LE hip ER neutral foot alignment. 2. hurdles: non-reciprocal. Challenging for foot clearance and limb advancement, use SPC for support. 3. Continue curb in future txs . Neuro Re-Education Treatment Balance Activities retro stepping Details Hallway: retro stepping, tandem fwd Surface stable Equipment finger glide wall Reps/Duration 20 ft x2 laps each Comments sBA PT-OP-T Assessment and Plan Start: 09/03/24 15:52 Freq: Status: Active Protocol: Document 09/10/24 13:50 SP (Rec: 09/10/24 14:31 SP [id number]) Physical Therapy Assessment Goals Four Impairment 6 MWT distance 671 ft, gait speed 0.67 m/s w/o AD Correction Goal (LTG) Pt will demonstrate increased step length at least 50% of the time with AD use during gait to increase gait speed and improve stability during ambulation and exercises LTG Duration 10/30/24 Three Impairment 5x STS 15 with CGA, instability d/t weakness, unsteadiness Short Term Goal (STG) Pt will be able to perform at least 5 STS from standard chair with or without UE assist and no LOB for improved stability with transfers STG Duration 10/09/24 Two Impairment TUG time 22, indicating increased risk of falls in community, need for AD Short Term Goal (STG) Pt will be educated on LRAD use and fitted for most appropriate LRAD in order to decrease fall risk STG Duration 10/02/24 Correction Goal (LTG) Pt will decrease TUG time <20 with LRAD in order to demonstrate decreased risk of falls during community and household ambulation LTG Duration 10/30/24 One Impairment Crouch 29/56, indicates increased risk of falls Short Term Goal (STG) Pt will report 1 or fewer falls ea month (currently at least 2 per month) STG Duration 6 weeks [employer] 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 Progressed DF in standing and added STS no UE support to HEP for foot clearance and LE strengthening . Cues for upright posture during initiated resisted stepping today in PT only. If performs well next tx, give for HEP /c HO. Pt would like to continue curb mgt next tx for improved confidence in community, fell on his back in the past and wants to improve this. Decreased noted lateral lean today. Physical Therapy Plan Frequency and Duration Frequency of Treatment 2x/Week Duration of treatment (weeks) 8 Plan of Care Start Date 09/04/24 Plan of Care End Date 10/30/24 Therapeutic Interventions Therapeutic Interventions Balance Training,Canalithic Repositioning,Gait Training, Home Exercise Program,Joint Mobilizations,Manual Therapy, Neuromuscular Re-education, Orthotic/Prosthetic Management ,Patient/Caregiver Education, Self-Care/Home Management, Sensory Integration,Soft Tissue Mobilization, Therapeutic Activities, Therapeutic Exercises, Vestibular Rehabilitation Modalities Cold Pack/Ice Massage,Electric Stimulation,Hot Packs, Ultrasound Next Visit Focus/Plan Next Note Type Treatment Note Next Visit Plan Gait training with spc vs more stable LRAD in future if needed. Hurdles, balance training with changing ORION, decrease visual input. Work on weight shift, posture, foot clearance. STS training, BLE strengthening of quads/hip abd /glutes. stretch HS, calves phillip RLE. can trial hip stretching on RLe if eulalio well. Curb Mgt.
--- NOTE | 2024-09-16 09:01 | PT.OTN ---
Current Diagnoses Stiffness of right knee, not elsewhere classified (09/16/24) Other spondylosis with radiculopathy, lumbosacral region (09/16/24) Spondylosis without myelopathy or radiculopathy, site unspecified (09/16/24) Other specified soft tissue disorders (09/16/24) Difficulty in walking, not elsewhere classified (09/16/24) Unsteadiness on feet (09/16/24) Other abnormalities of gait and mobility (09/16/24) Weakness (09/16/24) Arthrodesis status (09/16/24) Physical Therapy Treatment Note PT-OP-A Visit Information Start: 09/03/24 15:52 Freq: Status: Active Protocol: Document 09/16/24 08:18 SP (Rec: 09/16/24 09:07 SP [id number]) Out-Patient Physical Therapy Visit Information Visit Information Visit Type Treatment Note Visit Note KX after 19 visits Visit Start Time 08:18 Visit Stop Time 09:01 Visit Number 4 Number of DIRECTOR CPG Visits 2 Evaluation Information Evaluation Date 09/04/24 Precautions Precautions Fall Risk PT-OP-B Current Condition Start: 09/03/24 15:52 Freq: Status: Active Protocol: Document 09/04/24 11:27 NM (Rec: 09/04/24 12:22 NM [id number]) Current Condition History of Current Condition Onset Date ongoing History of Current Condition Pt presents with balance issues. He has had several falls, including 2 a month. He reports that he falls with turning, catching his feet on objects. Denies dizziness or lightheadedness. He was using a spc until recently, states that had been using it for month. He started using the cane due to a lack of confidence. States that he feels comfortable with the distance, states 2 blocks. Lives on the 2nd story of a home (just driveway going up, bedroom/living room). Goes to basement, has stairs with rails. Walks down the inclined driveway using the spc. He reports that reaching to top of closet, throws off his balance. Reports transfers from low chair. Gets up 1-3x/ night to go bathroom, has not caused falls. Hx of sciatic over 10 years (not currently, managed with injections), last episode 3 months ago but reports most previous one was in 2019. Works out 5x/wk at [email or web address] (elliptical, treadmill, weight machines). Denies back pain and does not want to work on PT for his back. Treatment Goals Patient/Caregiver Goals use of AD, balance and confidence PT-OP-C Subjective Start: 09/03/24 15:52 Freq: Status: Active Protocol: Document 09/16/24 08:18 SP (Rec: 09/16/24 09:07 SP [id number]) OP-PT Subjective Patient Comments Patient Comments Pt reports his B feet hurt under medial plantar surface ( arch) up laterally lower leg, told rail switch operator and was told probably tendonitis. Is there anything can do for this, makes it harder to walk. PT-OP-D Balance Start: 09/03/24 15:52 Freq: Status: Active Protocol: Document 09/04/24 11:27 NM (Rec: 09/04/24 12:22 NM [id number]) Balance Tests Crouch Balance Test Crouch Balance Test Score 29/56 PT-OP-E Functional Tests Start: 09/03/24 15:52 Freq: Status: Active Protocol: Document 09/04/24 11:27 NM (Rec: 09/04/24 12:22 NM [id number]) Functional Tests 6 Minute Walk Test Distance 671 ft Device Used none Comments CGA d/t balance, prn stumbles w/o fall, unsteady turns, obstacle mgmt Five Times Sit to Stand Test Score 15 Comments CGA last 2 reps d/t LOB Timed Up and Go (TUG) Score 22 Comments c/ and c/o AD PT-OP-G Mobility & Gait Start: 09/03/24 15:52 Freq: Status: Active Protocol: Document 09/04/24 11:27 NM (Rec: 09/04/24 12:22 NM [id number]) OP Gait Assessment Gait Gait Assistance Required: Contact Guard Assist Distance (Feet) 150 Assistive Devices Assistive Device Gait Belt Gait Deviations General Gait Pattern Antalgic,Decreased Feet Clearance,Flexed Trunk,Wide Based Gait Factors Limiting Gait Function Factors Limiting Gait Function Decreased Activity Tolerance, Decreased Strength,Limited Range of Motion,Poor Balance Comments Gait Comments B knee flex, wide based gait with knees in varus. Decreased foot clearance B. Strong forward trunk lean and R truncal shift (postural) Stair Climbing Evaluation Comments Stair Climbing Comments 1 rail, recip up, setp to down PT-OP-J Posture/Palpation/Skin Start: 09/03/24 15:52 Freq: Status: Active Protocol: Document 09/04/24 11:27 NM (Rec: 09/04/24 12:22 NM [id number]) Posture Evaluation Position Standing Head/C-Spine Posture Forward Head T-Spine Posture Increased Kyphosis L-Spine Posture Increased Lordosis Shoulder Posture (L) Rounded,(R) Rounded Hip Posture (L) Externally Rotated,(R) Externally Rotated Knee Posture (L) Genu Varus,(R) Genu Varus Comments Posture Comments Increasd kyphosis. R trunk lean in sitting, standing/gait , slight trunk rotation PT-OP-K Range of Motion Start: 09/03/24 15:52 Freq: Status: Active Protocol: Document 09/04/24 11:27 NM (Rec: 09/04/24 12:22 NM [id number]) Knee Goniometric Range of Motion Knee ROM Limitations Comments Observable limitations in hamstring length B Ankle and Foot Goniometric Range of Motion Ankle and Foot ROM Limitations Comments Observable limitations in calf length B PT-OP-M Strength Start: 09/03/24 15:52 Freq: Status: Active Protocol: Document 09/04/24 11:27 NM (Rec: 09/04/24 12:22 NM [id number]) Trunk Strength Trunk Manual Muscle Testing Flexion 3 Fair Extension 3 Fair Rotation Left 3 Fair Rotation Right 3 Fair Lateral Flexion Left 3 Fair Lateral Flexion Right 3 Fair Hip Strength Hip Manual Muscle Testing Right Flexion (L2) 4 Good Extension (S1) 3+ Fair+ Abduction 4- Good- Adduction 4 Good External Rotation 3+ Fair+ Internal Rotation 3+ Fair+ Left Flexion (L2) 4- Good- Extension (S1) 4- Good- Abduction 4- Good- Adduction 4- Good- External Rotation 3+ Fair+ Internal Rotation 3+ Fair+ Knee Strength Knee Manual Muscle Testing Right Flexion (S2) 4 Good Extension (L3) 4 Good Left Flexion (S2) 4 Good Extension (L3) 4 Good Ankle/Foot Strength Ankle and Foot Manual Muscle Testing Right Dorsiflexion (L4) 4- Good- Plantarflexion (S1) 4- Good- Inversion 3+ Fair+ Eversion (S1) 3+ Fair+ Comments limited ROM Left Dorsiflexion (L4) 4- Good- Plantarflexion (S1) 4- Good- Inversion 3+ Fair+ Eversion (S1) 3+ Fair+ PT-OP-Q Treatments Start: 09/03/24 15:52 Freq: Status: Active Protocol: Document 09/16/24 08:18 SP (Rec: 09/16/24 09:07 SP [id number]) Gym Equipment Shuttle Recovery single leg squat Details cued L knee adduction/ R knee lateral midline alignement with foot Resistance 37# 1 navy bilateral squat Details tactile cues B knee & foot alignment Resistance 75 # 3 navy bands Reps/Time 2x15 Therapeutic Exercises Sitting Exercises hamstring stretch Sitting Exercise Name HEP reviewed Side bilateral Equipment Used sitting on edge of chair Reps/Minutes 2x60 ea Comments cued hands on lap, chest lift, hip hinge toe raises Sitting Exercise Name HEP reviewed Side bilateral Resistance AROM Reps/Minutes 30x5 holds Comments cued alignment hip abduction Sitting Exercise Name glute medius isometric Side bilateral Resistance level 3 band Reps/Minutes 10 reps, 60 Comments R more limited ER with ROM and strength than L Standing Exercises knee & ankle mobility Standing Exercise Name added to HEP /c HO support ankle mobility Side bilateral Equipment Used rail support Reps/Minutes 3 SH x10 Comments cued tall posture, knee with and pass toes DF holds Standing Exercise Name Hold for now due to current plantarfascia irritated 2/12 Resistance AROM Equipment Used back to rail Reps/Minutes 5 SH x20 reps Comments SPC support 1/2 the time calf stretch Standing Exercise Name reviewed Side bilateral Equipment Used bottom step Reps/Minutes 2x60 Comments edu tall posturr, needs stable UE support Manual Therapy Treatment Consent Patient gave verbal consent for manual Yes treatment Soft Tissue Mobilization B plantar fascia Mobilization Type Myofascial Release,Rolling Comments good response Discussed potential use superfeet, gave screen shot and suggested show Certified Health Education Specialist tomorrow for feedback. Joint Mobilizations B ankle mobililty Comments calcaneal distraction & med/ lat, talocural PA, MTP PA and gross rotation. Neuro Re-Education Treatment Balance Activities taj stepping Details step to Equipment 1 rail> SPC support Reps/Duration 6 hurdles x3 laps Comments cued knee flexion trail foot and leading foot clearance. Self-Care/Home Management Treatment Education Patient Education Body Mechanics,Joint Protection,Pain Management, Safety Other Education Provided Screenshot of Superfeet shoe inserts and suggested show to Certified Health Education Specialist at tomorrow's appt and see what they think about for plantarfascia pain support, potentially decrease flexibility in arch foot ( demonstrates slight IV R>L ankle positioning when walks) and allow decrease pain. \ Initiated ankle mobility knee over toes for ankle range to support heel toe mobility during gait, good feedback response post manual and mobility at step. PT-OP-T Assessment and Plan Start: 09/03/24 15:52 Freq: Status: Active Protocol: Document 09/16/24 08:18 SP (Rec: 09/16/24 09:07 SP [id number]) Physical Therapy Assessment Goals Four Impairment 6 MWT distance 671 ft, gait speed 0.67 m/s w/o AD Uat Tester Goal (LTG) Pt will demonstrate increased step length at least 50% of the time with AD use during gait to increase gait speed and improve stability during ambulation and exercises LTG Duration 10/30/24 Three Impairment 5x STS 15 with CGA, instability d/t weakness, unsteadiness Short Term Goal (STG) Pt will be able to perform at least 5 STS from standard chair with or without UE assist and no LOB for improved stability with transfers STG Duration 10/09/24 Two Impairment TUG time 22, indicating increased risk of falls in community, need for AD Short Term Goal (STG) Pt will be educated on LRAD use and fitted for most appropriate LRAD in order to decrease fall risk STG Duration 10/02/24 Alf Goal (LTG) Pt will decrease TUG time <20 with LRAD in order to demonstrate decreased risk of falls during community and household ambulation LTG Duration 10/30/24 One Impairment Crouch 29/56, indicates increased risk of falls Short Term Goal (STG) Pt will report 1 or fewer falls ea month (currently at least 2 per month) STG Duration 6 weeks Alf Goal (LTG) Pt will increase Crouch balance score to at least 36/56 (1 MCID) in order to demonstrate decreased fall risk LTG Duration 8 weeks Assessment Summary Assessment Pt good tolerance to manual ankle and plantarfascia mobility then carryover knee/ ankle mobility at step for support ankle range carryover during gait. Next trial DF /c EV TB to support foot clearance and more EV neutral and see if help less tension on lateral ankles and plantar fascia. Pt progressed hurdles stepping for increase SLS time and stride progression for gait stability. Physical Therapy Plan Frequency and Duration Frequency of Treatment 2x/Week Duration of treatment (weeks) 8 Plan of Care Start Date 09/04/24 Plan of Care End Date 10/30/24 Therapeutic Interventions Therapeutic Interventions Balance Training,Canalithic Repositioning,Gait Training, Home Exercise Program,Joint Mobilizations,Manual Therapy, Neuromuscular Re-education, Orthotic/Prosthetic Management ,Patient/Caregiver Education, Self-Care/Home Management, Sensory Integration,Soft Tissue Mobilization, Therapeutic Activities, Therapeutic Exercises, Vestibular Rehabilitation Modalities Cold Pack/Ice Massage,Electric Stimulation,Hot Packs, Ultrasound Next Visit Focus/Plan Next Note Type Treatment Note Next Visit Plan Gait training with spc vs more stable LRAD in future if needed. Continue progress: Hurdles, balance training with changing ORION, decrease visual input. Work on weight shift, posture, foot clearance. STS training, BLE strengthening of quads/hip abd/glutes. stretch HS, calves phillip RLE. Can trial hip stretching on RLe if eulalio well. Curb Mgt.
--- NOTE | 2024-09-30 14:27 | PT-OP ANOTE ---
PT called and left message with pt's asking pt to call about whether pt planning to return to PT or if pt planning to discharge from PT. states that she will have pt call when he's back. States he is currently having issues with his health so has not been able to attend but she thinks he wants to continue. PT asked pt to call as will discuss with pt directly to see if pt still appropriate for PT at this time
--- NOTE | 2024-10-16 10:22 | PT.OPDS ---
Current Diagnoses Stiffness of right knee, not elsewhere classified (09/16/24) Other spondylosis with radiculopathy, lumbosacral region (09/16/24) Spondylosis without myelopathy or radiculopathy, site unspecified (09/16/24) Other specified soft tissue disorders (09/16/24) Difficulty in walking, not elsewhere classified (09/16/24) Unsteadiness on feet (09/16/24) Other abnormalities of gait and mobility (09/16/24) Weakness (09/16/24) Arthrodesis status (09/16/24) Visit Care Team Role Provider Type Perry Lamas MD Attending Provider Physician Family Provider Primary Care Provider Referring Provider Specialty: Family Practice Address: [address] [place] [address], [facility] Email: [email or web address] Visit Number Visit Number 4 Discharge Summary PT-OP-B Current Condition Start: 09/03/24 15:52 Freq: Status: Active Protocol: Document 09/04/24 11:27 NM (Rec: 09/04/24 12:22 NM [id number]) Current Condition History of Current Condition Onset Date ongoing History of Current Condition Pt presents with balance issues. He has had several falls, including 2 a month. He reports that he falls with turning, catching his feet on objects. Denies dizziness or lightheadedness. He was using a spc until recently, states that had been using it for month. He started using the cane due to a lack of confidence. States that he feels comfortable with the distance, states 2 blocks. Lives on the 2nd story of a home (just driveway going up, bedroom/living room). Goes to basement, has stairs with rails. Walks down the inclined driveway using the spc. He reports that reaching to top of closet, throws off his balance. Reports transfers from low chair. Gets up 1-3x/ night to go bathroom, has not caused falls. Hx of sciatic over 10 years (not currently, managed with injections), last episode 3 months ago but reports most previous one was in 2019. Works out 5x/wk at [employer] (elliptical, treadmill, weight machines). Denies back pain and does not want to work on PT for his back. Treatment Goals Patient/Caregiver Goals use of AD, balance and confidence PT-OP-C Subjective Start: 09/03/24 15:52 Freq: Status: Active Protocol: Document 09/16/24 08:18 SP (Rec: 09/16/24 09:07 SP [id number]) OP-PT Subjective Patient Comments Patient Comments Pt reports his B feet hurt under medial plantar surface ( arch) up laterally lower leg, told lot attendant and was told probably tendonitis. Is there anything can do for this, makes it harder to walk. PT-OP-D Balance Start: 09/03/24 15:52 Freq: Status: Active Protocol: Document 09/04/24 11:27 NM (Rec: 09/04/24 12:22 NM [id number]) Balance Tests Crouch Balance Test Crouch Balance Test Score 29/56 PT-OP-E Functional Tests Start: 09/03/24 15:52 Freq: Status: Active Protocol: Document 09/04/24 11:27 NM (Rec: 09/04/24 12:22 NM [id number]) Functional Tests 6 Minute Walk Test Distance 671 ft Device Used none Comments CGA d/t balance, prn stumbles w/o fall, unsteady turns, obstacle mgmt Five Times Sit to Stand Test Score 15 Comments CGA last 2 reps d/t LOB Timed Up and Go (TUG) Score 22 Comments c/ and c/o AD PT-OP-G Mobility & Gait Start: 09/03/24 15:52 Freq: Status: Active Protocol: Document 09/04/24 11:27 NM (Rec: 09/04/24 12:22 NM [id number]) OP Gait Assessment Gait Gait Assistance Required: Contact Guard Assist Distance (Feet) 150 Assistive Devices Assistive Device Gait Belt Gait Deviations General Gait Pattern Antalgic,Decreased Feet Clearance,Flexed Trunk,Wide Based Gait Factors Limiting Gait Function Factors Limiting Gait Function Decreased Activity Tolerance, Decreased Strength,Limited Range of Motion,Poor Balance Comments Gait Comments B knee flex, wide based gait with knees in varus. Decreased foot clearance B. Strong forward trunk lean and R truncal shift (postural) Stair Climbing Evaluation Comments Stair Climbing Comments 1 rail, recip up, setp to down PT-OP-J Posture/Palpation/Skin Start: 09/03/24 15:52 Freq: Status: Active Protocol: Document 09/04/24 11:27 NM (Rec: 09/04/24 12:22 NM [id number]) Posture Evaluation Position Standing Head/C-Spine Posture Forward Head T-Spine Posture Increased Kyphosis L-Spine Posture Increased Lordosis Shoulder Posture (L) Rounded,(R) Rounded Hip Posture (L) Externally Rotated,(R) Externally Rotated Knee Posture (L) Genu Varus,(R) Genu Varus Comments Posture Comments Increasd kyphosis. R trunk lean in sitting, standing/gait , slight trunk rotation PT-OP-K Range of Motion Start: 09/03/24 15:52 Freq: Status: Active Protocol: Document 09/04/24 11:27 NM (Rec: 09/04/24 12:22 NM [id number]) Knee Goniometric Range of Motion Knee ROM Limitations Comments Observable limitations in hamstring length B Ankle and Foot Goniometric Range of Motion Ankle and Foot ROM Limitations Comments Observable limitations in calf length B PT-OP-M Strength Start: 09/03/24 15:52 Freq: Status: Active Protocol: Document 09/04/24 11:27 NM (Rec: 09/04/24 12:22 NM [id number]) Trunk Strength Trunk Manual Muscle Testing Flexion 3 Fair Extension 3 Fair Rotation Left 3 Fair Rotation Right 3 Fair Lateral Flexion Left 3 Fair Lateral Flexion Right 3 Fair Hip Strength Hip Manual Muscle Testing Right Flexion (L2) 4 Good Extension (S1) 3+ Fair+ Abduction 4- Good- Adduction 4 Good External Rotation 3+ Fair+ Internal Rotation 3+ Fair+ Left Flexion (L2) 4- Good- Extension (S1) 4- Good- Abduction 4- Good- Adduction 4- Good- External Rotation 3+ Fair+ Internal Rotation 3+ Fair+ Knee Strength Knee Manual Muscle Testing Right Flexion (S2) 4 Good Extension (L3) 4 Good Left Flexion (S2) 4 Good Extension (L3) 4 Good Ankle/Foot Strength Ankle and Foot Manual Muscle Testing Right Dorsiflexion (L4) 4- Good- Plantarflexion (S1) 4- Good- Inversion 3+ Fair+ Eversion (S1) 3+ Fair+ Comments limited ROM Left Dorsiflexion (L4) 4- Good- Plantarflexion (S1) 4- Good- Inversion 3+ Fair+ Eversion (S1) 3+ Fair+ PT-OP-T Assessment and Plan Start: 09/03/24 15:52 Freq: Status: Active Protocol: Document 10/16/24 10:19 NM (Rec: 10/16/24 10:22 NM [id number]) Physical Therapy Assessment Goals Four Impairment 6 MWT distance 671 ft, gait speed 0.67 m/s w/o AD Care Home Goal (LTG) Pt will demonstrate increased step length at least 50% of the time with AD use during gait to increase gait speed and improve stability during ambulation and exercises LTG Duration 10/30/24 Three Impairment 5x STS 15 with CGA, instability d/t weakness, unsteadiness Short Term Goal (STG) Pt will be able to perform at least 5 STS from standard chair with or without UE assist and no LOB for improved stability with transfers STG Duration 10/09/24 Two Impairment TUG time 22, indicating increased risk of falls in community, need for AD Short Term Goal (STG) Pt will be educated on LRAD use and fitted for most appropriate LRAD in order to decrease fall risk STG Duration 10/02/24 Chief Inspector Goal (LTG) Pt will decrease TUG time <20 with LRAD in order to demonstrate decreased risk of falls during community and household ambulation LTG Duration 10/30/24 One Impairment Crouch 29/56, indicates increased risk of falls Short Term Goal (STG) Pt will report 1 or fewer falls ea month (currently at least 2 per month) STG Duration 6 weeks Chief Inspector Goal (LTG) Pt will increase Crouch balance score to at least 36/56 (1 MCID) in order to demonstrate decreased fall risk LTG Duration 8 weeks Assessment Summary Assessment Pt evaluated in August 2024 for balance and gait impairments. He attended x3 treatments and has canceled all remaining appt. Physical Therapy Plan Frequency and Duration Frequency of Treatment 2x/Week Duration of treatment (weeks) 8 Plan of Care Start Date 09/04/24 Plan of Care End Date 10/30/24 Therapeutic Interventions Therapeutic Interventions Balance Training,Canalithic Repositioning,Gait Training, Home Exercise Program,Joint Mobilizations,Manual Therapy, Neuromuscular Re-education, Orthotic/Prosthetic Management ,Patient/Caregiver Education, Self-Care/Home Management, Sensory Integration,Soft Tissue Mobilization, Therapeutic Activities, Therapeutic Exercises, Vestibular Rehabilitation Modalities Cold Pack/Ice Massage,Electric Stimulation,Hot Packs, Ultrasound Discharge Physical Therapy Discharge Reasons No Longer Attending PT Discharge Comments Pt has not been seen in clinic since 09/16/24. He canceled all remaining appt. No progress toward PT goals. PT called on 09/30 to determine if pt would return to clinic but spoke to pt's who reports pt having health problems and would have pt call back. Pt did not return call. He has not been seen in clinic in >30 days; thus, pt will be discharged from PT due to lack of attendance and will need a new PT referral to return. Next Visit Focus/Plan Next Note Type Discharge Summary Next Visit Plan discharge from PT
== END 2024-10-21 15:52 | disposition home or self-care (01) ==
LOC: PHYS 08:15
PROVIDERS: Family Provider Family Medicine; PCP Family Medicine; Referring Provider Family Medicine; Visit Provider Family Medicine
DX: R53.1 Weakness (principal); M47.819 Spondylosis without myelopathy or radiculopathy, site unspecified; Z98.1 Arthrodesis status; M79.89 Other specified soft tissue disorders; M47.27 Other spondylosis with radiculopathy, lumbosacral region; R26.81 Unsteadiness on feet; R26.89 Other abnormalities of gait and mobility; M25.661 Stiffness of right knee, not elsewhere classified
CPT/HCPCS: 97110; 97112; 97116; 97140; 97161

== ENCOUNTER → 2024-09-22 16:27 | Outpatient (CLI) | payer MEDICARE, OTHER, SELFPAY ==
--- NOTE | 2024-09-22 16:28 | DI.RAD.S_ITS ---
PROCEDURE: XR FOOT LT MIN 3V INDICATIONS: ankle foot pain TECHNIQUE: 3 views of the foot were acquired. COMPARISON: None. FINDINGS: Bones: Moderate diffuse osteoporosis appreciated. Moderate metatarsus abductus and hammertoe deformities 1st through 5th digits noted. Joints: There is mild 1st MTP degeneration and moderate degeneration in all interphalangeal joints. Soft tissues: Moderate diffuse soft tissue swelling noted. Calcifications seen in the plantar tendon insertion on the calcaneus. IMPRESSION: Moderate diffuse soft tissue swelling likely edema or less likely inflammation Multiple chronic findings-as described Dictated by: Trey Low M.D. on 09/23/2024 at 11:19 Approved by: Trey Low M.D. on 09/23/2024 at 11:21
== END ==
LOC: RAD 16:28
PROVIDERS: Family Provider Family Medicine; PCP Family Medicine; Referring Provider Family Medicine; Visit Provider Family Medicine
DX: M20.42 Other hammer toe(s) (acquired), left foot (principal); M25.572 Pain in left ankle and joints of left foot; M81.0 Age-related osteoporosis without current pathological fracture; M21.6X2 Other acquired deformities of left foot; M19.072 Primary osteoarthritis, left ankle and foot; M79.89 Other specified soft tissue disorders
CPT/HCPCS: 73630

== ENCOUNTER → 2024-09-29 14:41 | Outpatient (CLI) | payer MEDICARE, OTHER, SELFPAY ==
[2024-09-29 15:32] LABS: Add Manual Diff / Slide Review NO; Basophils Absolute Auto 100 /uL (0-100); Basophils Percent Auto 0.7 % (0-2); Eosinophils Absolute Auto 100 /uL (0-450); Hematocrit 39.8 % (41-53); Hemoglobin 13.2 g/dL (13.5-17.5); Lymphocytes Absolute Auto 1100 /uL (1100-4500); Lymphocytes Percent Auto 13.9 % (25-40); Mean Corpuscular HGB Conc 33.1 % (30-36); Mean Corpuscular Hemoglobin 33.2 PG (26-34); Mean Corpuscular Volume 100.2 fL (80-100); Monocytes Absolute Auto 900 /uL (0-900); Monocytes Percent Auto 11.6 % (3-14); Neutrophils Absolute Auto 5800 /uL (1500-7000); Neutrophils Percent Auto 72.8 % (50-75); Platelet Count 272 X10^3/uL (150-400); Red Blood Cell Count 3.97 X10^6/uL (4.5-5.9); Red Cell Distribution Width 12.8 % (11.6-14.8); White Blood Cell Count 7.9 X10^3/uL (4.5-11.0)
[2024-09-29 15:56] LABS: HEMOLYSIS < 15 (0-50)
[2024-09-29 16:02] LABS: Alanine Aminotransferase 24 IU/L (<50); Albumin 3.9 g/dL (3.5-5.0); Albumin Globulin Ratio 1.6 (1.0-2.8); Alkaline Phosphatase 120 U/L (38-126); Aspartate Aminotransferase 35 IU/L (17-59); BUN Creatinine Ratio 26.2 (6-22); Bilirubin Total 0.8 mg/dL (0.2-1.3); Blood Urea Nitrogen 17 mg/dL (9-20); Calcium 9.1 mg/dL (8.4-10.2); Carbon Dioxide 27 mmol/L (22-32); Chloride 98 mmol/L (98-107); Estimated Glomerular Filt Rate > 60 mL/min (>60); Globulin 2.4 g/dL (1.7-4.1); Glucose 94 mg/dL (80-110); Potassium 3.9 mmol/L (3.4-5.1); Sodium 132 mmol/L (137-145); Total Protein 6.3 g/dL (6.3-8.2)
[2024-09-29 17:08] LABS: Folate 6.8 ng/mL (2.76-20.0); Vitamin B12 Reflex MMA if <400 582 pg/mL (239-931)
== END ==
PROVIDERS: Family Provider Family Medicine; PCP Family Medicine; Referring Provider Family Medicine; Visit Provider Family Medicine
DX: L12.0 Bullous pemphigoid (principal); I48.91 Unspecified atrial fibrillation; M47.27 Other spondylosis with radiculopathy, lumbosacral region; D75.89 Other specified diseases of blood and blood-forming organs; Z79.01 Long term (current) use of anticoagulants
CPT/HCPCS: 36415; 80053; 82607; 82746; 85025

== ENCOUNTER → 2024-10-05 08:05 | Outpatient (CLI) | payer MEDICARE, OTHER, SELFPAY ==
[2024-10-05 09:15] LABS: HEMOLYSIS < 15 (0-50); Potassium 4.3 mmol/L (3.4-5.1)
== END ==
PROVIDERS: Family Provider Family Medicine; PCP Family Medicine; Referring Provider Family Medicine; Visit Provider Family Medicine
DX: M25.572 Pain in left ankle and joints of left foot (principal); R60.0 Localized edema
CPT/HCPCS: 36415; 84132

== ENCOUNTER 2024-10-08 08:10 | Outpatient (CLI) | payer MEDICARE, OTHER, SELFPAY ==
[2024-10-08] VITALS (9 sets, daily range): BP systolic 129–180; BP diastolic 70–99; PULSE 57–73; RESP 16–22; TEMP 36; O2SAT 98–99
[2024-10-08] MEDS: MIDAZOLAM 2 MG/2 ML VIAL IV (09:02)
[2024-10-08] MEDS: iopamidoL 15 ML VIAL 3 ML INJ (09:06)
[2024-10-08] MEDS: LIDOCAINE 1% 20 ML 5 ML INJ (09:07)
[2024-10-08] MEDS: LIDOCAINE 2% INJ SDV 5ML 1 ML INJ (09:07)
--- NOTE | 2024-10-08 09:19 | PM.PROC.IR.1 ---
Date/Time/Diagnoses Date of procedure: 10/08/24 Time of procedure: 09:19 Pre-procedure diagnosis: 1. FACET ARTHROPATHY Post-procedure diagnosis: same Procedure Notes Procedure: 1. BILATERAL- L4, L5 and S1 DIAGNOSTIC MB BLOCKS with LA Anesthetic Indications: Hugo is referred by Dr. Lamas for treatment of Bilateral Axial LBP. Physician: Joce Curtis Total Fluoroscopy time (seconds): 19 Total sedation minutes: 14 Complications: none Procedure in detail & Post-procedure care: DESCRIPTION OF PROCEDURE Fluoroscopically guided, contrast-controlled bilateral L4, L5 and S1 medial branch blocks with 0.5cc of 0.5% Marcaine. Following review of allergy and review of potential side effects and complications, including, but not necessarily limited to, infection, allergic reaction, local tissue breakdown, nerve injury, paralysis, stroke and possible , the patient indicated that the patient understood and agreed to proceed. An informed consent document was signed by the patient, witnessed by a nurse, and placed in the patient's chart. After review of previous anaesthesic history and IV conscious sedation the patient was deemed safe to proceed with today's procedure with IV conscious sedation as ASA class II designation. Safety time-out was performed to confirm patient ID, procedure to be performed and site of procedure. IV sedation was accomplished with a combination of 3mg of Versed and 5was administered by the RN after DO order, titrated to patient comfort during the course of the procedure while the patient remained responsive to all verbal commands In the prone position, following sterile prep and drape of the lumbar region, the right L4, L5 and S1 anatomical location of the medial branch of the dorsal ramus was identified fluoroscopically. Subsequently an anesthetic skin wheal using 1% lidocaine solution was initiated at each of the anatomical spots. Subsequently then a 22-gauge 3.5-inch spinal needle was atraumatically introduced and advanced under fluoroscopic guidance at each of the corresponding sites at the right L4, L5 and S1 MB. After negative aspiration, 0.2cc of Isovue 200 was injected, confirming placement without vascular or intrathecal uptake. Subsequently then 0.5cc of 0.5% Marcaine solution was injected at each of the corresponding sites at the right L4, L5 and S1 medial branch locations. The identical procedure was replicated on the left. The patient tolerated the procedure well without signs or symptoms of complications prior to transfer to the recovery area continued monitoring without incident. Post-procedure, the patient was monitored initiating provocative activities to measure the amount of relief from block of the facetogenic pain. The patient reported a VAS of 7 prior to the procedure and a post-procedure VAS of 1. It has been a pleasure to assist in the diagnostic and therapeutic care of your patient. POST OP INSTRUCTIONS The patient was provided with a Pain Log to complete over the next several hours and subsequent days prior to the patient's follow up with the ordering physician. If the patient has supervisor shuttle veneering relief to the solution applied, then they may be a candidate for medial branch rhizotomy. The patient is aware, was provided, once again, with a Pain Log and will follow up with the referring physician for review and clinical correlation
== END 2024-10-08 09:45 | disposition home or self-care (01) ==
PROVIDERS: Family Provider Family Medicine; PCP Family Medicine; Referring Provider Physical Medicine & Rehabilitation; Visit Provider Physical Medicine & Rehabilitation
DX: M47.816 Spondylosis without myelopathy or radiculopathy, lumbar region (principal); M47.817 Spondylosis without myelopathy or radiculopathy, lumbosacral region
CPT/HCPCS: 64493; 64494; 99152; J2250

== ENCOUNTER → 2024-10-30 13:56 | Outpatient (CLI) | payer MEDICARE, OTHER, SELFPAY | PROVIDERS: Family Provider Family Medicine; PCP Family Medicine; Referring Provider Family Medicine; Visit Provider Physician Assistant | DX: I87.2 Venous insufficiency (chronic) (peripheral) (principal); L97.322 Non-pressure chronic ulcer of left ankle with fat layer exposed; R23.4 Changes in skin texture; L97.312 Non-pressure chronic ulcer of right ankle with fat layer exposed; Z86.718 Personal history of other venous thrombosis and embolism; Z79.01 Long term (current) use of anticoagulants | CPT/HCPCS: 11042; 99213 ==

== ENCOUNTER → 2024-11-04 10:12 | Outpatient (CLI) | payer MEDICARE, OTHER, SELFPAY ==
[2024-11-04 10:53] LABS: Add Manual Diff / Slide Review NO; Basophils Absolute Auto 0 /uL (0-100); Basophils Percent Auto 0.6 % (0-2); Eosinophils Absolute Auto 100 /uL (0-450); Eosinophils Percent Auto 1.3 % (2-4); Hematocrit 36.4 % (41-53); Hemoglobin 12.3 g/dL (13.5-17.5); Lymphocytes Absolute Auto 1000 /uL (1100-4500); Lymphocytes Percent Auto 14.3 % (25-40); Mean Corpuscular HGB Conc 33.7 % (30-36); Mean Corpuscular Hemoglobin 33.2 PG (26-34); Mean Corpuscular Volume 98.3 fL (80-100); Monocytes Absolute Auto 700 /uL (0-900); Monocytes Percent Auto 10.8 % (3-14); Neutrophils Absolute Auto 4900 /uL (1500-7000); Platelet Count 234 X10^3/uL (150-400); Red Blood Cell Count 3.71 X10^6/uL (4.5-5.9); Red Cell Distribution Width 13.9 % (11.6-14.8); White Blood Cell Count 6.8 X10^3/uL (4.5-11.0)
[2024-11-04 11:20] LABS: Alanine Aminotransferase 28 IU/L (<50); Albumin 3.8 g/dL (3.5-5.0); Albumin Globulin Ratio 1.7 (1.0-2.8); Alkaline Phosphatase 129 U/L (38-126); Aspartate Aminotransferase 35 IU/L (17-59); BUN Creatinine Ratio 23.8 (6-22); Bilirubin Total 0.9 mg/dL (0.2-1.3); Blood Urea Nitrogen 15 mg/dL (9-20); Calcium 9.5 mg/dL (8.4-10.2); Carbon Dioxide 26 mmol/L (22-32); Chloride 101 mmol/L (98-107); Estimated Glomerular Filt Rate > 60 mL/min (>60); Globulin 2.3 g/dL (1.7-4.1); Glucose 97 mg/dL (80-110); HEMOLYSIS < 15 (0-50); Potassium 4.3 mmol/L (3.4-5.1); Sodium 135 mmol/L (137-145); Total Protein 6.1 g/dL (6.3-8.2)
== END ==
PROVIDERS: Family Provider Family Medicine; PCP Family Medicine; Referring Provider Dermatology; Visit Provider Dermatology
DX: L12.0 Bullous pemphigoid (principal); D84.9 Immunodeficiency, unspecified; M48.02 Spinal stenosis, cervical region; M47.27 Other spondylosis with radiculopathy, lumbosacral region; I48.19 Other persistent atrial fibrillation; R60.0 Localized edema; Z79.899 Other long term (current) drug therapy; Z79.01 Long term (current) use of anticoagulants
CPT/HCPCS: 36415; 80053; 85025; 99214

== ENCOUNTER → 2024-11-06 13:46 | Outpatient (CLI) | payer MEDICARE, OTHER, SELFPAY | PROVIDERS: Family Provider Family Medicine; PCP Family Medicine; Referring Provider Family Medicine; Visit Provider Physician Assistant | DX: L97.322 Non-pressure chronic ulcer of left ankle with fat layer exposed (principal); L97.312 Non-pressure chronic ulcer of right ankle with fat layer exposed; L97.812 Non-pressure chronic ulcer of other part of right lower leg with fat layer exposed; I87.2 Venous insufficiency (chronic) (peripheral); R60.0 Localized edema; L53.9 Erythematous condition, unspecified; Z79.01 Long term (current) use of anticoagulants | CPT/HCPCS: 11042; 97597; 99213 ==

== ENCOUNTER → 2024-11-13 14:59 | Outpatient (CLI) | payer MEDICARE, OTHER, SELFPAY | PROVIDERS: Family Provider Family Medicine; PCP Family Medicine; Referring Provider Family Medicine; Visit Provider Physician Assistant | DX: I87.2 Venous insufficiency (chronic) (peripheral) (principal); L97.322 Non-pressure chronic ulcer of left ankle with fat layer exposed; L97.812 Non-pressure chronic ulcer of other part of right lower leg with fat layer exposed; L98.8 Other specified disorders of the skin and subcutaneous tissue; R60.0 Localized edema; L53.8 Other specified erythematous conditions; R23.4 Changes in skin texture; Z86.718 Personal history of other venous thrombosis and embolism; Z79.01 Long term (current) use of anticoagulants | CPT/HCPCS: 11042; 99213 ==

== ENCOUNTER 2024-11-17 09:50 | Outpatient (CLI) | payer MEDICARE, OTHER, SELFPAY ==
[2024-11-17] VITALS (8 sets, daily range): BP systolic 138–175; BP diastolic 73–95; PULSE 51–60; RESP 14–19; TEMP 36.1; O2SAT 98–100
[2024-11-17] MEDS: MIDAZOLAM 2 MG/2 ML VIAL IV (11:07)
[2024-11-17] MEDS: LIDOCAINE 1% 20 ML 5 ML INJ (11:12)
[2024-11-17] MEDS: LIDOCAINE 2% INJ MDV 20ML 5 ML INJ (11:12)
[2024-11-17] MEDS: iopamidoL 15 ML VIAL 3 ML INJ (11:12)
--- NOTE | 2024-11-17 11:29 | PM.PROC.IR.1 ---
Date/Time/Diagnoses Date of procedure: 11/17/24 Time of procedure: 11:29 Pre-procedure diagnosis: 1. FACET ARTHROPATHY Post-procedure diagnosis: same Procedure Notes Procedure: 1. BILATERAL- L4, L5 and S1 DIAGNOSTIC MB BLOCKS with SA Anesthetic Indications: Hugo is referred by Dr. Lamas for treatment of Bilateral Axial LBP. Physician: Joce Curtis Total Fluoroscopy time (seconds): 14 Total sedation minutes: 14 Complications: none Procedure in detail & Post-procedure care: DESCRIPTION OF PROCEDURE Fluoroscopically guided, contrast-controlled bilateral L4, L5 and S1 medial branch blocks with 0.5cc of 2% Lidocaine. Following review of allergy and review of potential side effects and complications, including, but not necessarily limited to, infection, allergic reaction, local tissue breakdown, nerve injury, paralysis, stroke and possible , the patient indicated that the patient understood and agreed to proceed. An informed consent document was signed by the patient, witnessed by a nurse, and placed in the patient's chart. After review of previous anaesthesic history and IV conscious sedation the patient was deemed safe to proceed with today's procedure with IV conscious sedation as ASA class II designation. Safety time-out was performed to confirm patient ID, procedure to be performed and site of procedure. IV sedation was accomplished with a combination of 2mg of Versed was administered by the RN after DO order, titrated to patient comfort during the course of the procedure while the patient remained responsive to all verbal commands In the prone position, following sterile prep and drape of the lumbar region, the right L4, L5 and S1 anatomical location of the medial branch of the dorsal ramus was identified fluoroscopically. Subsequently an anesthetic skin wheal using 1% lidocaine solution was initiated at each of the anatomical spots. Subsequently then a 22-gauge 3.5-inch spinal needle was atraumatically introduced and advanced under fluoroscopic guidance at each of the corresponding sites at the right L4, L5 and S1 MB. After negative aspiration, 0.2cc of Isovue 200 was injected, confirming placement without vascular or intrathecal uptake. Subsequently then 0.5cc of 2% Lidocaine solution was injected at each of the corresponding sites at the right L4, L5 and S1 medial branch locations. The identical procedure was replicated on the left. The patient tolerated the procedure well without signs or symptoms of complications prior to transfer to the recovery area continued monitoring without incident. Post-procedure, the patient was monitored initiating provocative activities to measure the amount of relief from block of the facetogenic pain. The patient reported a VAS of 7 prior to the procedure and a post-procedure VAS of 1. It has been a pleasure to assist in the diagnostic and therapeutic care of your patient. POST OP INSTRUCTIONS The patient was provided with a Pain Log to complete over the next several hours and subsequent days prior to the patient's follow up with the ordering physician. If the patient has ear nose throat surgeon relief to the solution applied, then they may be a candidate for medial branch rhizotomy. The patient is aware, was provided, once again, with a Pain Log and will follow up with the referring physician for review and clinical correlation
== END 2024-11-17 11:40 | disposition home or self-care (01) ==
PROVIDERS: Family Provider Family Medicine; PCP Family Medicine; Referring Provider Physical Medicine & Rehabilitation; Visit Provider Physical Medicine & Rehabilitation
DX: M47.816 Spondylosis without myelopathy or radiculopathy, lumbar region (principal); M47.817 Spondylosis without myelopathy or radiculopathy, lumbosacral region
CPT/HCPCS: 64493; 64494; 99152; J2250

== ENCOUNTER → 2024-11-20 10:25 | Outpatient (CLI) | payer MEDICARE, OTHER, SELFPAY | PROVIDERS: Family Provider Family Medicine; PCP Family Medicine; Referring Provider Family Medicine; Visit Provider Physician Assistant | DX: I87.2 Venous insufficiency (chronic) (peripheral) (principal); L97.322 Non-pressure chronic ulcer of left ankle with fat layer exposed; L97.812 Non-pressure chronic ulcer of other part of right lower leg with fat layer exposed; Z86.718 Personal history of other venous thrombosis and embolism; Z79.01 Long term (current) use of anticoagulants; L98.8 Other specified disorders of the skin and subcutaneous tissue; R60.0 Localized edema | CPT/HCPCS: 11042; 99213 ==

== ENCOUNTER → 2024-11-26 10:24 | Outpatient (CLI) | payer MEDICARE, OTHER, SELFPAY | PROVIDERS: Family Provider Family Medicine; PCP Family Medicine; Referring Provider Family Medicine; Visit Provider Surgery | DX: I87.2 Venous insufficiency (chronic) (peripheral) (principal); L97.322 Non-pressure chronic ulcer of left ankle with fat layer exposed; L97.812 Non-pressure chronic ulcer of other part of right lower leg with fat layer exposed; L98.8 Other specified disorders of the skin and subcutaneous tissue; R60.0 Localized edema; Z79.01 Long term (current) use of anticoagulants; Z86.718 Personal history of other venous thrombosis and embolism | CPT/HCPCS: 11042 ==

== ENCOUNTER → 2024-12-04 15:17 | Outpatient (CLI) | payer MEDICARE, OTHER, SELFPAY | LOC: WC 15:18 | PROVIDERS: Family Provider Family Medicine; PCP Family Medicine; Referring Provider Family Medicine; Visit Provider Physician Assistant | DX: Z87.2 Personal history of diseases of the skin and subcutaneous tissue (principal); I87.2 Venous insufficiency (chronic) (peripheral); L97.322 Non-pressure chronic ulcer of left ankle with fat layer exposed; L97.812 Non-pressure chronic ulcer of other part of right lower leg with fat layer exposed; Z86.718 Personal history of other venous thrombosis and embolism; Z79.01 Long term (current) use of anticoagulants; L88 Pyoderma gangrenosum; I48.91 Unspecified atrial fibrillation | CPT/HCPCS: 11042; 97597; 99213 ==

== ENCOUNTER → 2024-12-11 14:21 | Outpatient (CLI) | payer MEDICARE, OTHER, SELFPAY | LOC: WC 14:23 | PROVIDERS: Family Provider Family Medicine; PCP Family Medicine; Referring Provider Family Medicine; Visit Provider Physician Assistant | DX: Z87.2 Personal history of diseases of the skin and subcutaneous tissue (principal); R60.0 Localized edema; Z86.718 Personal history of other venous thrombosis and embolism; Z79.01 Long term (current) use of anticoagulants | CPT/HCPCS: 99211; 99212 ==

== ENCOUNTER → 2024-12-22 08:54 | Outpatient (CLI) | payer MEDICARE, OTHER, SELFPAY ==
[2024-12-22 11:17] LABS: Cortisol AM (Before 10AM) 12.6 ug/dL (4.46-22.7)
== END ==
PROVIDERS: Family Provider Family Medicine; PCP Family Medicine; Referring Provider Dermatology; Visit Provider Dermatology
DX: Z79.899 Other long term (current) drug therapy (principal)
CPT/HCPCS: 36415; 82533

== ENCOUNTER 2025-01-05 10:49 | Outpatient (CLI) | payer MEDICARE, OTHER, SELFPAY ==
[2025-01-05] VITALS (14 sets, daily range): BP systolic 140–181; BP diastolic 69–102; PULSE 56–65; RESP 14–19; TEMP 36.3; O2SAT 98–100
[2025-01-05] MEDS: MIDAZOLAM 2 MG/2 ML VIAL IV (12:32)
[2025-01-05] MEDS: MIDAZOLAM 2 MG/2 ML VIAL 1 MG IV ×2 (12:42→12:53)
[2025-01-05] MEDS: BUPIVACAINE 0.5% (PF) 10 ML VIAL 5 ML INJ (12:55)
[2025-01-05] MEDS: LIDOCAINE 1% 20 ML 5 ML INJ (12:56)
--- NOTE | 2025-01-05 13:16 | P.PCN_ITS ---
Date/Time/Diagnoses Date of procedure: 01/05/25 Time of procedure: 13:16 Pre-procedure diagnosis: 1. RECALCITRANT FACET ARTHROPATHY Post-procedure diagnosis: same Procedure Notes Procedure: 1. BILATERAL L4 AND L5 MEDIAL BRANCH RADIOFREQUENCY NEUROTOMY AND S1 DORSAL RAMUS BRANCH RADIOFREQUENCY NEUROTOMY Indications: Hugo is referred by Dr. Lamas for treatment of facet arthropathy. Physician: Joce Curtis Total Fluoroscopy time (seconds): 21 Total sedation minutes: 39 Complications: none Procedure in detail & Post-procedure care: DESCRIPTION OF PROCEDURE Bilateral L4 and L5 medial branch radiofrequency neurotomy and bilateral S1 dorsal ramus radiofrequency neurotomy under fluoroscopy with conscious sedation. The patient is well known to this clinic having undergone previous facet injections with good but temporary relief. The patient has experienced appropriate, concordant relief with previous facet and median branch blocks but the patient's pain has been recalcitrant to further conservative measures. Therefore, based upon the patient's relief and persistent symptoms, the patient is considered an appropriate candidate for facet rhizotomy. All of the patient's questions regarding the risks versus benefits of the procedure, including, but not limited to, bleeding, infection, temporary as well as lasting nerve injury, paralysis, stroke, and , as well treatment alternatives were answered to satisfaction. After obtaining informed consent, denial of pertinent drug allergies, as well as being made aware of the potential risks of bleeding, infection, spinal cord trauma, paralysis, temporary and permanent nerve damage, seizure, stroke, and possible , the patient was brought to the fluoroscopy suite and positioned prone on the fluoroscopy table. The lumbar region was prepped in usual sterile fashion and covered with a fenestrated drape in the usual sterile fashion. Appropriate monitors applied including pulse oximeter, pulse, and blood pressure for regular monitoring throughout the procedure. After review of previous anaesthesic history and IV conscious sedation the patient was deemed safe to proceed with today's procedure with IV conscious sedation as ASA class II designation. Safety time-out was performed to confirm patient ID, procedure to be performed and site of procedure. IV sedation was accomplished with a combination of 4mg of Versed administered by the RN after DO order, titrated to patient comfort during the course of the procedure while the patient remained responsive to all verbal commands. After local infiltration using 1% lidocaine, under fluoroscopic guidance, a 10- cm RF insulated needle with a 10-mm active tip was positioned parallel to the junction of the right sacral ala and the superior articulating process where the S1 dorsal ramus resides. Needle placement was confirmed with motor stimulation of .5v on the right which produced local stimulation without radicular component. The stimulation was then increased to 2v with, once again, only local multifidus stimulation without radicular component. The needle was then removed and the identical procedure was performed along the length of the right L5 medial branch with motor stimulation at .7v on the right. The identical procedure was once again performed along the length of the right L4 medial branch with motor stimulation of .5v on the right. The medial branches were then anesthetised with 0.5% Marcaine. This was then followed by two discreet lesions performed at 80 degrees Celsius for 90 seconds each. The identical procedure was repeated on the left. The patient tolerated the procedure well without signs or symptoms of complications prior to transfer to the recovery area continued monitoring without incident. The patient was then transferred to the recovery area where they were observed for an appropriate period of time after the injection. The patient reported a VAS score of 8 prior to the procedure and a post-procedure VAS of 0. POST OP INSTRUCTIONS The patient was provided a Pain Log to continue to record the patient's response to the target-specific procedure prior to the patient's follow-up visit with the referring physician. Additionally, specific post-injection care instructions and a contact number to our office were provided if concerns arise regarding possible complications associated with the procedure are suspected.
== END 2025-01-05 13:32 | disposition home or self-care (01) ==
LOC: RAD 10:51
PROVIDERS: Family Provider Family Medicine; PCP Family Medicine; Referring Provider Physical Medicine & Rehabilitation; Visit Provider Physical Medicine & Rehabilitation
DX: M47.819 Spondylosis without myelopathy or radiculopathy, site unspecified (principal)
CPT/HCPCS: 64635; 64636; 99152; 99153; J2250

== ENCOUNTER → 2025-01-19 09:36 | Outpatient (CLI) | payer MEDICARE, OTHER, SELFPAY | LOC: WC 09:49 | PROVIDERS: Family Provider Family Medicine; PCP Family Medicine; Referring Provider Family Medicine; Visit Provider Surgery | DX: I87.2 Venous insufficiency (chronic) (peripheral) (principal); L97.822 Non-pressure chronic ulcer of other part of left lower leg with fat layer exposed; R60.0 Localized edema; L53.9 Erythematous condition, unspecified; M25.572 Pain in left ankle and joints of left foot; Z85.038 Personal history of other malignant neoplasm of large intestine; M19.90 Unspecified osteoarthritis, unspecified site; I48.91 Unspecified atrial fibrillation; Z87.01 Personal history of pneumonia (recurrent); M54.30 Sciatica, unspecified side | CPT/HCPCS: 11042; 87070; 87075; 87205; 99213; 99214 ==

== ENCOUNTER → 2025-01-21 11:01 | Outpatient (CLI) | payer MEDICARE, OTHER, SELFPAY ==
--- NOTE | 2025-01-21 11:02 | DI.US.S_ITS ---
PROCEDURE: US ARTERIAL DUPLEX LE LT INDICATIONS: eval arterial status TECHNIQUE: Color and pulse Doppler interrogation was performed of the left lower extremity arterial system, with image documentation. COMPARISON: None. FINDINGS: Common femoral artery: 90 cm/sec, with biphasic flow. Deep femoral artery: 54 cm/sec, with biphasic flow. Proximal superficial femoral artery: 74 cm/sec, with triphasic flow. Mid superficial femoral artery: 80 cm/sec, with triphasic flow. Distal superficial femoral artery: 74 cm/sec, with triphasic flow. Popliteal artery: 70 cm/sec, with triphasic flow. Posterior tibial artery: 115 cm/sec, with triphasic flow. Anterior tibial artery/dorsalis pedis: 124 cm/sec, with triphasic flow. Sood-scale imaging description: Scattered plaque IMPRESSION: No hemodynamically significant stenosis. Dictated by: Alexus Ribera M.D. on 01/21/2025 at 14:01 Approved by: Aleuxs Ribera M.D. on 01/21/2025 at 14:05
== END ==
LOC: US 11:02
PROVIDERS: Family Provider Family Medicine; PCP Family Medicine; Referring Provider Surgery; Visit Provider Surgery
DX: L97.822 Non-pressure chronic ulcer of other part of left lower leg with fat layer exposed (principal)
CPT/HCPCS: 93926

== ENCOUNTER → 2025-01-26 10:25 | Outpatient (CLI) | payer MEDICARE, OTHER, SELFPAY | PROVIDERS: Family Provider Family Medicine; PCP Family Medicine; Referring Provider Family Medicine; Visit Provider Surgery | DX: I87.2 Venous insufficiency (chronic) (peripheral) (principal); L97.822 Non-pressure chronic ulcer of other part of left lower leg with fat layer exposed; Z79.01 Long term (current) use of anticoagulants | CPT/HCPCS: 11042 ==

== ENCOUNTER → 2025-01-26 11:02 | Outpatient (CLI) | payer MEDICARE, OTHER, SELFPAY ==
--- NOTE | 2025-01-26 11:04 | DI.RAD.S_ITS ---
PROCEDURE: XR TIBIA FIBULA LT 2V INDICATIONS: mass anterior medial LLE TECHNIQUE: 4 views of the tibia and fibula were acquired. COMPARISON: [facility], CR, XR TIBIA FIBULA RT 2V, 05/17/2021, 10:23. FINDINGS: Bones: No fractures or dislocations. No suspicious bony lesions. Soft tissues: 7 mm radiodense foreign body within the medial soft tissues of the leg. No suspicious soft tissue calcifications or masses. IMPRESSION: No acute bony abnormality. Radiodense foreign body as above. Dictated by: Juan C Verduzco M.D. on 01/27/2025 at 0:05 Approved by: Juan C Verduzco M.D. on 01/27/2025 at 0:27
== END ==
PROVIDERS: Family Provider Family Medicine; PCP Family Medicine; Referring Provider Surgery; Visit Provider Surgery
DX: M79.5 Residual foreign body in soft tissue (principal); R22.40 Localized swelling, mass and lump, unspecified lower limb; I87.2 Venous insufficiency (chronic) (peripheral); L97.822 Non-pressure chronic ulcer of other part of left lower leg with fat layer exposed; Z79.01 Long term (current) use of anticoagulants
CPT/HCPCS: 11042; 73590

== ENCOUNTER → 2025-01-28 10:00 | Outpatient (CLI) | payer MEDICARE, OTHER, SELFPAY | PROVIDERS: Family Provider Family Medicine; PCP Family Medicine; Referring Provider Family Medicine; Visit Provider Surgery | DX: I87.2 Venous insufficiency (chronic) (peripheral) (principal); L97.822 Non-pressure chronic ulcer of other part of left lower leg with fat layer exposed; R60.0 Localized edema | CPT/HCPCS: 29581 ==

== ENCOUNTER → 2025-01-28 10:27 | Outpatient (CLI) | payer MEDICARE, OTHER, SELFPAY ==
--- NOTE | 2025-01-28 10:30 | DI.RAD.S_ITS ---
PROCEDURE: XR HIP W PEL IF DONE RT 2V INDICATIONS: Continued bruising/pain s/p fall 01/11/25 TECHNIQUE: Weight-bearing AP pelvis with lateral view(s) of the right hip(s). COMPARISON: [facility], CR, XR LUMBAR SPINE 2-3V, 01/28/2025, 10:27. FINDINGS: Bones: No fractures or dislocations. Pelvic ring appears intact. No suspicious bony lesions. Right hip arthroplasty hardware is seen, which appears intact. There is moderate superior joint space narrowing seen of the contralateral left hip, with associated remodeling changes with subchondral sclerosis and osteophyte formation. Soft tissues: The visualized bowel gas pattern is normal. No suspicious soft tissue calcifications. Lower pelvic clips are seen. IMPRESSION: Intact appearing right hip arthroplasty hardware, without fracture or dislocation. Moderate left hip degenerative change noted. Dictated by: Jethro Hercules M.D. on 01/28/2025 at 9:58 Approved by: Jethro Hercules M.D. on 01/28/2025 at 10:00
--- NOTE | 2025-01-28 10:30 | DI.RAD.S_ITS ---
PROCEDURE: XR LUMBAR SPINE 2-3V INDICATIONS: Continued bruising/ pain s/p fall 01/11/25 TECHNIQUE: 3 views of the lumbar spine were acquired. COMPARISON: [facility], CR, XR HIP W PEL RT 2V, 01/28/2025, 10:27. [facility], CR, XR LUMBAR SPINE MIN 4V, 05/25/2024, 14:12. FINDINGS: Bones: 5 [id number] vertebrae are present. No vertebral body compression fractures. No suspicious bony lesions. There is minimal retrolisthesis seen at L1-L2 and L2-L3. Grade 1 anterolisthesis is seen at L4-L5. Mild levoconvex scoliotic curvature is noted. There is moderate to severe disc space narrowing at L2-L3 and L3-L4. Moderate disc space narrowing is seen at L4-L5. Moderate to severe disc space narrowing is seen at L5-S1. Bridging endplate osteophytes can be seen on the right at L1-L2 and L2-L3. Lower lumbar spine facet arthropathy is seen. There is partial visualization of right hip arthroplasty hardware. Soft tissues: Overlying bowel gas pattern is normal. No suspicious soft tissue calcifications. IMPRESSION: Negative for acute fracture is seen on these plain films. Multiple levels significant lumbar spine degenerative change can be seen. Dictated by: Jethro Hercules M.D. on 01/28/2025 at 10:00 Approved by: Jethro Hercules M.D. on 01/28/2025 at 10:02
== END ==
PROVIDERS: Family Provider Family Medicine; PCP Family Medicine; Referring Provider Family Medicine; Visit Provider Family Medicine
DX: S70.00XA Contusion of unspecified hip, initial encounter (principal); M47.816 Spondylosis without myelopathy or radiculopathy, lumbar region; I87.2 Venous insufficiency (chronic) (peripheral); L97.822 Non-pressure chronic ulcer of other part of left lower leg with fat layer exposed; R60.0 Localized edema; W19.XXXA Unspecified fall, initial encounter; Z96.641 Presence of right artificial hip joint
CPT/HCPCS: 29581; 72100; 73502

== ENCOUNTER → 2025-02-02 15:41 | Outpatient (CLI) | payer MEDICARE, OTHER, SELFPAY | LOC: WC 15:42 | PROVIDERS: Family Provider Family Medicine; PCP Family Medicine; Referring Provider Family Medicine; Visit Provider Surgery | DX: I87.2 Venous insufficiency (chronic) (peripheral) (principal); L97.822 Non-pressure chronic ulcer of other part of left lower leg with fat layer exposed; R60.0 Localized edema | CPT/HCPCS: 11042 ==

== ENCOUNTER → 2025-02-04 15:44 | Outpatient (CLI) | payer MEDICARE, OTHER, SELFPAY | LOC: WC 02-15 15:45 | PROVIDERS: Family Provider Family Medicine; PCP Family Medicine; Referring Provider Family Medicine; Visit Provider Surgery | DX: I87.2 Venous insufficiency (chronic) (peripheral) (principal); L97.822 Non-pressure chronic ulcer of other part of left lower leg with fat layer exposed; R60.0 Localized edema | CPT/HCPCS: 29581 ==

== ENCOUNTER → 2025-02-09 15:19 | Outpatient (CLI) | payer MEDICARE, OTHER, SELFPAY | PROVIDERS: Family Provider Family Medicine; PCP Family Medicine; Referring Provider Family Medicine; Visit Provider Surgery | DX: I87.2 Venous insufficiency (chronic) (peripheral) (principal); L97.822 Non-pressure chronic ulcer of other part of left lower leg with fat layer exposed; R60.0 Localized edema; L88 Pyoderma gangrenosum | CPT/HCPCS: 11042 ==

== ENCOUNTER → 2025-02-11 09:42 | Outpatient (CLI) | payer MEDICARE, OTHER, SELFPAY ==
[2025-02-11 10:15] LABS: Add Manual Diff / Slide Review NO; Hematocrit 39.5 % (41-53); Hemoglobin 13.4 g/dL (13.5-17.5); Lymphocytes Absolute Auto 1300 /uL (1100-4500); Mean Corpuscular HGB Conc 33.9 % (30-36); Mean Corpuscular Hemoglobin 34.1 PG (26-34); Mean Corpuscular Volume 100.5 fL (80-100); Platelet Count 197 X10^3/uL (150-400)
[2025-02-11 10:38] LABS: Alanine Aminotransferase 17 IU/L (<50); Albumin 4.1 g/dL (3.5-5.0); Albumin Globulin Ratio 1.9 (1.0-2.8); Alkaline Phosphatase 128 U/L (38-126); Blood Urea Nitrogen 23 mg/dL (9-20); Calcium 9.4 mg/dL (8.4-10.2); Carbon Dioxide 31 mmol/L (22-32); Chloride 98 mmol/L (98-107); Estimated Glomerular Filt Rate > 60 mL/min (>60); Globulin 2.2 g/dL (1.7-4.1); Glucose 88 mg/dL (70-99); HEMOLYSIS < 15 (0-50); Potassium 4.6 mmol/L (3.4-5.1); Sodium 133 mmol/L (137-145); Total Protein 6.3 g/dL (6.3-8.2)
== END ==
PROVIDERS: Family Provider Family Medicine; PCP Family Medicine; Referring Provider Dermatology; Visit Provider Dermatology
DX: D84.9 Immunodeficiency, unspecified (principal); L12.0 Bullous pemphigoid; Z79.899 Other long term (current) drug therapy; I87.2 Venous insufficiency (chronic) (peripheral); R60.0 Localized edema; M25.572 Pain in left ankle and joints of left foot
CPT/HCPCS: 36415; 80053; 85025

== ENCOUNTER → 2025-02-15 14:09 | Outpatient (CLI) | payer MEDICARE, OTHER, SELFPAY | LOC: WC 14:11 | PROVIDERS: Family Provider Family Medicine; PCP Family Medicine; Referring Provider Family Medicine; Visit Provider Surgery | DX: I87.2 Venous insufficiency (chronic) (peripheral) (principal); L97.822 Non-pressure chronic ulcer of other part of left lower leg with fat layer exposed; L88 Pyoderma gangrenosum; R60.0 Localized edema; Z79.01 Long term (current) use of anticoagulants | CPT/HCPCS: 11042; 99213 ==

== ENCOUNTER → 2025-02-22 11:15 | Outpatient (CLI) | payer MEDICARE, OTHER, SELFPAY | LOC: WC 11:16 | PROVIDERS: Family Provider Family Medicine; PCP Family Medicine; Referring Provider Family Medicine; Visit Provider Surgery | DX: Z87.2 Personal history of diseases of the skin and subcutaneous tissue (principal); I87.2 Venous insufficiency (chronic) (peripheral); L97.822 Non-pressure chronic ulcer of other part of left lower leg with fat layer exposed; L12.0 Bullous pemphigoid; Z79.01 Long term (current) use of anticoagulants; R60.0 Localized edema | CPT/HCPCS: 99212; 99213 ==

== ENCOUNTER → 2025-03-01 10:19 | Outpatient (CLI) | payer MEDICARE, OTHER, SELFPAY | LOC: WC 10:20 | PROVIDERS: Family Provider Family Medicine; PCP Family Medicine; Referring Provider Family Medicine; Visit Provider Surgery | DX: I87.2 Venous insufficiency (chronic) (peripheral) (principal); R60.0 Localized edema; L12.0 Bullous pemphigoid; D69.2 Other nonthrombocytopenic purpura; I48.91 Unspecified atrial fibrillation; Z86.718 Personal history of other venous thrombosis and embolism; Z79.01 Long term (current) use of anticoagulants | CPT/HCPCS: 99212; 99213 ==

== ENCOUNTER 2025-03-26 10:45 | Outpatient (RCR) | payer MEDICARE, OTHER, SELFPAY ==
--- NOTE | 2025-01-29 15:50 | PT.OIE ---
Addendum entered and electronically signed by Trell Haile, PT 01/29/25 16:05: PT direct supervision and direction to student PT Vernon Carrillo throughout session Original Note: Current Diagnoses Other spondylosis with radiculopathy, lumbosacral region (01/29/25) Spinal stenosis, cervical region (01/29/25) Unsteadiness on feet (01/29/25) Repeated falls (01/29/25) Weakness (01/29/25) History of falling (01/29/25) Arthrodesis status (01/29/25) Past Medical History (Last Reviewed 12/30/24 @ 14:26 by Joce Curtis DO) Abdominal hernia Afib Bilateral lower extremity edema Bullous pemphigoid Chronic anticoagulation DJD of both shoulders Facet arthropathy, multilevel GI bleed History of colon cancer (~2017) Insomnia secondary to chronic pain Intussusception Left ankle pain Left shoulder pain Liver lesion Lumbosacral spondylosis with radiculopathy Nocturnal cough PND (post-nasal drip) Pneumonia Sacral dysfunction Small bowel obstruction Past Surgical History (Last Reviewed 12/30/24 @ 14:26 by Joce Curtis DO) H/O hernia repair H/O total hip arthroplasty History of colectomy (~2017) History of colonoscopy Status post cervical spinal fusion Visit Care Team Role Provider Type Perry Lamas MD Attending Provider Physician Family Provider Primary Care Provider Referring Provider Specialty: Family Practice Address: [address] [place] [address] Email: [email or web address] Physical Therapy Initial Evaluation PT-OP-A Visit Information Start: 01/29/25 10:30 Freq: Status: Active Protocol: Document 01/29/25 10:56 LFG (Rec: 01/29/25 10:37 LFG [id number]) Out-Patient Physical Therapy Visit Information Visit Information Visit Type Initial Evaluation Visit Start Time 10:55 Visit Stop Time 11:34 Visit Number 1 Evaluation Information Evaluation Date 01/29/25 PT-OP-B Current Condition Start: 01/29/25 10:30 Freq: Status: Active Protocol: Document 01/29/25 10:56 LFG (Rec: 01/29/25 10:37 LFG [id number]) Current Condition History of Current Condition Current Complaints Balance and fall risk History of Current Patient is a 84 year old who was seen earlier this year Condition for complaints of balance and falls but discontinued PT due other health concerns. PT reports that his most recent fall was 3 weeks ago while working at home in his lawn/yard and still has black/blue bruising on his R hip. X-rays reveal no fracture from the fall but still is still experiencing hip pain. Prior to this fall he states having 3 other falls one of which was when he was out having lunch with his friends and stepping down a curb. Pt states that he's not aware what is causing his falls but denies losing consciousness. Reports having trouble with steps. Has a covered wound behind his L ankle. Previously had injections for his back pain that he reports was completely resolved. Presented to PT with a cane and states that he only uses it when he leaves home, but still tries not to use it when out in the community because he doesn't want to appear old. Prior Treatments and Shoulder and Hip replacement Tests Treatment Goals Patient/Caregiver To improve his balance and reduce frequency and risk of Goals falling so that he can take out garbage cans instead of his . PT-OP-C Subjective Start: 01/29/25 10:30 Freq: Status: Active Protocol: Document 01/29/25 10:56 LF (Rec: 01/29/25 10:37 [facility] [id number]) OP-PT Subjective Patient Comments Patient Comments To get back as much as he can to his normal. Struggles to get up from chairs that slide or are unstable with UE use. Patient Questionnaires Oswestry Low Back Index Oswestry Score 9/50 = 18% (modified oswestry) Oswestry Impairment 1 to 19% Impaired (Score 1-19) Other Questionnaire Name Falls Efficacy Scale (FES): and Score 24/64 PT-OP-D Balance Start: 01/29/25 10:30 Freq: Status: Active Protocol: Document 01/29/25 10:56 LFG (Rec: 01/29/25 12:00 [facility] [id number]) Crouch Balance Assessment Evaluation Sitting to Standing Independent w/Hands Ability Unsupported Stance Supervision- 2 minutes Sitting Unsupported, Supervision- 2 minutes Feet on Floor Standing to Sitting Independent, Uncontrolled Ability Transfer Ability Safely, Hand Use Unsupported Stance- Supervision, 10 seconds Eyes Closed Unsupported Stance- Supervision to maintain Eyes Open Reaching Forward Supervision Needed Standing Pick- Up Object From Supervision Floor Look Behind Shoulder Turns Sideways Only - Standing Turning 360 Degrees Supervision/Verbal Cues Unsupported Stance, 2 Steps w/Minimum Assist Alternating Feet on Stair Unsupported Tandem Assist to Step-15 seconds Stance Unilateral Leg Lifts Leg/Unable to Hold Stance Total Score Crouch Total Score ( 29 out of 56 points) Crouch Impairment 40 to 59% Impaired (Score 23-33) Rating Tinetti Balance Assessment Sitting Balance Sitting Balance Steady, safe Arising from Chair Ability to Arise Able, w/o using arms Attempts to Arise Able, requires >1 attempt Standing Balance Immediate Standing Steady w/o support Balance Standing Balance Steady, wide stance Nudged Response Staggers, catches self Standing with Eyes Steady Closed Turning Step Pattern Turning Discontinuous steps 360 Degrees Stability Turning Unsteady, grabs/staggers 360 Degrees Sitting Down Sitting Down Uses arms or unsteady Gait and Step Initiation of Gait No hesitancy Right Foot Step Does not pass stance ft. Length Right Foot Step Completely clears floor Height Left Foot Step Does not pass stance foot Length Left Foot Step Completely clears floor Height Step Description Step Symmetry Step length not equal Step Continuity Steps appear continuous Gait Description Path Description Mild/moderate deviation Trunk Description Marked sway or uses aide Walking Stance Heels apart Scoring and Interpretation Tinetti Composite 15 Score (points) Interpretation of High risk for falls(< 19) Scores PT-OP-E Functional Tests Start: 01/29/25 10:30 Freq: Status: Active Protocol: Document 01/29/25 10:56 [facility] (Rec: 01/29/25 12:00 [facility] [id number]) Functional Tests Five Times Sit to Stand Test Score 25.64 sec Comments UE use to get up, multiple attempts to get up Timed Up and Go (TUG) Score 24.64 sec - 3 trial avg Comments 1st trial - 26.7s 2nd - 25.8s 3rd - 21.4s TUG Impairment 100% Impaired (Score 20) Rating PT-OP-G Mobility & Gait Start: 01/29/25 10:30 Freq: Status: Active Protocol: Document 01/29/25 10:56 LF (Rec: 01/29/25 12:00 [facility] [id number]) OP Mobility Evaluation Transfers Sit to Stand Occasionally requires multiple attempts. R knee valgus more extreme when not using hands to stand. OP Gait Assessment Gait Gait Assistance Independent Required: Able to Maintain Yes Weight Bearing Status During Gait Assistive Devices Assistive Device Straight Cane Gait Deviations General Gait Pattern Decreased Stride Length,Lateral Trunk Lean,Wide Based Gait Factors Limiting Gait Function Factors Limiting Decreased Activity Tolerance,Decreased Strength, Gait Function Difficulty Following Directions,Poor Balance Comments Gait Comments Cane occasionally touches the ground, mostly held up by patient. Does not use cane at home, only outside. PT-OP-M Strength Start: 01/29/25 10:30 Freq: Status: Active Protocol: Document 01/29/25 10:56 LFG (Rec: 01/29/25 12:00 [facility] [id number]) Hip Strength Hip Manual Muscle Testing Right Flexion (L2) 4- Good- Abduction 3+ Fair+ External Rotation 4- Good- Internal Rotation 4- Good- Comments unable to test extension - pt unable to lay prone unable to test adduction - pt trouble following directions trouble following directions in abduction/ER/IR Left Flexion (L2) 4 Good Abduction 4- Good- External Rotation 4+ Good+ Internal Rotation 4+ Good+ Comments unable to test extension - pt unable to lay prone unable to test adduction - pt trouble following directions trouble following directions in abduction/ER/IR Knee Strength Knee Manual Muscle Testing Right Flexion (S2) 3+ Fair+ Extension (L3) 4+ Good+ Comments pt had trouble following directions in testing flexion Left Flexion (S2) 4- Good- Extension (L3) 4+ Good+ Comments pt had trouble following directions in testing flexion Ankle/Foot Strength Ankle and Foot Manual Muscle Testing Right Dorsiflexion (L4) 4 Good Plantarflexion (S1) 5 Normal Left Dorsiflexion (L4) 4+ Good+ Plantarflexion (S1) 5 Normal PT-OP-T Assessment and Plan Start: 01/29/25 10:30 Freq: Status: Active Protocol: Document 01/29/25 10:56 LFG (Rec: 01/29/25 12:30 [facility] [id number]) Physical Therapy Assessment Evaluation Complexity Number of Personal 3 or More Factors/ Comorbidities Number of Body 4 or More Systems Impaired Clinical Unstable Presentation at Evaluation Impairments Impairments Activity Tolerance,Balance,Coordination,Edema, Functional Activities,Functional Mobility,Gait,Pain, Strength Goals Three Impairment 5x STS score 25.64 sec w/ UE use Acid Pump Operator Goal (LTG) Patient to increase his 5x STS score to >20 sec w/o UE use to improve ability in getting up from a chair/bed LTG Duration 04/19/25 Two Impairment TUG score 24.64 sec - 3 trial avg Snf Goal (LTG) Patient will improve TUG score >20 sec w/o AD to reduce fall risk while ambulating out in the community and at home LTG Duration 04/19/25 One Impairment Patient does not have appropriate HEP Short Term Goal (STG Patient will have a cohesive appropriate HEP that they ) adhere to independently STG Duration 02/19/25 Assessment Summary Assessment Patient presents to PT with complications in gait/ balance and a history of falls. Patient demonstrates bilateral LE weakness more R>L , with trouble following directions in testing. TUG/Crouch/Tinetti scores that place patient into a high fall risk category while demonstrating difficulties standing up from his seat and sitting back down efficiently, even with UE assistance. Patient is reluctant to use AD ambulating out in the community despite his history of falls. Patient will likely benefit from static/dynamic balance and gait training, bilateral LE functional strengthening and possible education on the importance and need of using his AD more frequently. Physical Therapy Plan Frequency and Duration Frequency of 2x/Week Treatment Plan of Care Start 01/29/25 Date Plan of Care End 04/19/25 Date Therapeutic Interventions Therapeutic Balance Training,Coordination Training,Gait Training, Interventions Home Exercise Program,Joint Mobilizations,Manual Therapy,Neuromuscular Re-education,Patient/Caregiver Education,Self-Care/Home Management,Soft Tissue Mobilization,Therapeutic Activities,Therapeutic Exercises Modalities Biofeedback,Cold Pack/Ice Massage,Electric Stimulation, Hot Packs,Infrared Therapy,Traction- Mechanical, Ultrasound Next Visit Focus/Plan Next Note Type Treatment Note Next Visit Plan Begin static/dynamic balance training, gait training, and bilateral LE strengthening. Begin building HEP and potentially talking to patient about using AD more frequently
--- NOTE | 2025-01-29 15:50 | PT.OPPOC ---
Addendum entered and electronically signed by Trell Haile PT 01/29/25 16:06: PT direct supervision and direction to student PT Vernon Carrillo throughout session Addendum entered and electronically signed by Trell Haile PT 01/29/25 16:05: PT direct supervision and direction to student PT Vernon Carrillo throughout session Original Note: Physical, Occupational & Speech Therapy At [facility] Current Diagnoses Other spondylosis with radiculopathy, lumbosacral region (01/29/25) Spinal stenosis, cervical region (01/29/25) Unsteadiness on feet (01/29/25) Repeated falls (01/29/25) Weakness (01/29/25) History of falling (01/29/25) Arthrodesis status (01/29/25) Visit Care Team Role Provider Type Perry Lamas MD Attending Provider Physician Family Provider Primary Care Provider Referring Provider Specialty: Family Practice Address: [address] [place] [address], [facility] Email: [email or web address] Plan Of Care PT-OP-B Current Condition Start: 01/29/25 10:30 Freq: Status: Active Protocol: Document 01/29/25 10:56 LFG (Rec: 01/29/25 10:37 [facility] [id number]) Current Condition History of Current Condition Current Complaints Balance and fall risk History of Current Patient is a 84 year old who was seen earlier this year Condition for complaints of balance and falls but discontinued PT due other health concerns. PT reports that his most recent fall was 3 weeks ago while working at home in his lawn/yard and still has black/blue bruising on his R hip. X-rays reveal no fracture from the fall but still is still experiencing hip pain. Prior to this fall he states having 3 other falls one of which was when he was out having lunch with his friends and stepping down a curb. Pt states that he's not aware what is causing his falls but denies losing consciousness. Reports having trouble with steps. Has a covered wound behind his L ankle. Previously had injections for his back pain that he reports was completely resolved. Presented to PT with a cane and states that he only uses it when he leaves home, but still tries not to use it when out in the community because he doesn't want to appear old. Prior Treatments and Shoulder and Hip replacement Tests Treatment Goals Patient/Caregiver To improve his balance and reduce frequency and risk of Goals falling so that he can take out garbage cans instead of his . PT-OP-T Assessment and Plan Start: 01/29/25 10:30 Freq: Status: Active Protocol: Document 01/29/25 10:56 LFG (Rec: 01/29/25 12:30 LF [id number]) Physical Therapy Assessment Evaluation Complexity Number of Personal 3 or More Factors/ Comorbidities Number of Body 4 or More Systems Impaired Clinical Unstable Presentation at Evaluation Impairments Impairments Activity Tolerance,Balance,Coordination,Edema, Functional Activities,Functional Mobility,Gait,Pain, Strength Goals Three Impairment 5x STS score 25.64 sec w/ UE use Swimming Pool Attendant Goal (LTG) Patient to increase his 5x STS score to >20 sec w/o UE use to improve ability in getting up from a chair/bed LTG Duration 04/19/25 Two Impairment TUG score 24.64 sec - 3 trial avg Swimming Pool Attendant Goal (LTG) Patient will improve TUG score >20 sec w/o AD to reduce fall risk while ambulating out in the community and at home LTG Duration 04/19/25 One Impairment Patient does not have appropriate HEP Short Term Goal (STG Patient will have a cohesive appropriate HEP that they ) adhere to independently STG Duration 02/19/25 Assessment Summary Assessment Patient presents to PT with complications in gait/ balance and a history of falls. Patient demonstrates bilateral LE weakness more R>L , with trouble following directions in testing. TUG/Crouch/Tinetti scores that place patient into a high fall risk category while demonstrating difficulties standing up from his seat and sitting back down efficiently, even with UE assistance. Patient is reluctant to use AD ambulating out in the community despite his history of falls. Patient will likely benefit from static/dynamic balance and gait training, bilateral LE functional strengthening and possible education on the importance and need of using his AD more frequently. Physical Therapy Plan Frequency and Duration Frequency of 2x/Week Treatment Plan of Care Start 01/29/25 Date Plan of Care End 04/19/25 Date Therapeutic Interventions Therapeutic Balance Training,Coordination Training,Gait Training, Interventions Home Exercise Program,Joint Mobilizations,Manual Therapy,Neuromuscular Re-education,Patient/Caregiver Education,Self-Care/Home Management,Soft Tissue Mobilization,Therapeutic Activities,Therapeutic Exercises Modalities Biofeedback,Cold Pack/Ice Massage,Electric Stimulation, Hot Packs,Infrared Therapy,Traction- Mechanical, Ultrasound Next Visit Focus/Plan Next Note Type Treatment Note Next Visit Plan Begin static/dynamic balance training, gait training, and bilateral LE strengthening. Begin building HEP and potentially talking to patient about using AD more frequently Plan of Care Dates Plan of Care Start Date 01/29/25 Plan of Care End Date 04/19/25 Electronically Signed by: Vernon Stacy, PT 01/29/25 1608 If you are in agreement with this Plan of Care, please return a signed and dated copy. I have reviewed this Plan of Care and certify that the skilled therapy services above are required to meet the patient?s needs. Physician Signature Date Printed Name and Credentials Clinical Instructor Signature Printed Name and Credentials
--- NOTE | 2025-02-04 17:45 | PT.OTN ---
Current Diagnoses Other spondylosis with radiculopathy, lumbosacral region (02/04/25) Spinal stenosis, cervical region (02/04/25) Unsteadiness on feet (02/04/25) Repeated falls (02/04/25) Weakness (02/04/25) History of falling (02/04/25) Arthrodesis status (02/04/25) Physical Therapy Treatment Note PT-OP-A Visit Information Start: 01/29/25 10:30 Freq: Status: Active Protocol: Document 02/04/25 17:00 DCW (Rec: 02/04/25 17:44 DCW [id number]) Out-Patient Physical Therapy Visit Information Visit Information Visit Type Treatment Note Visit Start Time 17:00 Visit Stop Time 17:45 Visit Number 2 Number of COMPOSITOR APPRENTICE Visits 0 Evaluation Information Evaluation Date 01/29/25 PT-OP-B Current Condition Start: 01/29/25 10:30 Freq: Status: Active Protocol: Document 01/29/25 10:56 LFG (Rec: 01/29/25 10:37 LFG [id number]) Current Condition History of Current Condition Current Complaints Balance and fall risk History of Current Patient is a 84 year old who was seen earlier this year Condition for complaints of balance and falls but discontinued PT due other health concerns. PT reports that his most recent fall was 3 weeks ago while working at home in his lawn/yard and still has black/blue bruising on his R hip. X-rays reveal no fracture from the fall but still is still experiencing hip pain. Prior to this fall he states having 3 other falls one of which was when he was out having lunch with his friends and stepping down a curb. Pt states that he's not aware what is causing his falls but denies losing consciousness. Reports having trouble with steps. Has a covered wound behind his L ankle. Previously had injections for his back pain that he reports was completely resolved. Presented to PT with a cane and states that he only uses it when he leaves home, but still tries not to use it when out in the community because he doesn't want to appear old. Prior Treatments and Shoulder and Hip replacement Tests Treatment Goals Patient/Caregiver To improve his balance and reduce frequency and risk of Goals falling so that he can take out garbage cans instead of his . PT-OP-C Subjective Start: 01/29/25 10:30 Freq: Status: Active Protocol: Document 02/04/25 17:00 DCW (Rec: 02/04/25 17:44 DCW [id number]) OP-PT Subjective Patient Comments Patient Comments Pt reports he has family visiting this weekend for his birthday. PT-OP-D Balance Start: 01/29/25 10:30 Freq: Status: Active Protocol: Document 01/29/25 10:56 LFG (Rec: 01/29/25 12:00 LFG [id number]) Crouch Balance Assessment Evaluation Sitting to Standing Independent w/Hands Ability Unsupported Stance Supervision- 2 minutes Sitting Unsupported, Supervision- 2 minutes Feet on Floor Standing to Sitting Independent, Uncontrolled Ability Transfer Ability Safely, Hand Use Unsupported Stance- Supervision, 10 seconds Eyes Closed Unsupported Stance- Supervision to maintain Eyes Open Reaching Forward Supervision Needed Standing Pick- Up Object From Supervision Floor Look Behind Shoulder Turns Sideways Only - Standing Turning 360 Degrees Supervision/Verbal Cues Unsupported Stance, 2 Steps w/Minimum Assist Alternating Feet on Stair Unsupported Tandem Assist to Step-15 seconds Stance Unilateral Leg Lifts Leg/Unable to Hold Stance Total Score Crouch Total Score ( 29 out of 56 points) Crouch Impairment 40 to 59% Impaired (Score 23-33) Rating Tinetti Balance Assessment Sitting Balance Sitting Balance Steady, safe Arising from Chair Ability to Arise Able, w/o using arms Attempts to Arise Able, requires >1 attempt Standing Balance Immediate Standing Steady w/o support Balance Standing Balance Steady, wide stance Nudged Response Staggers, catches self Standing with Eyes Steady Closed Turning Step Pattern Turning Discontinuous steps 360 Degrees Stability Turning Unsteady, grabs/staggers 360 Degrees Sitting Down Sitting Down Uses arms or unsteady Gait and Step Initiation of Gait No hesitancy Right Foot Step Does not pass stance ft. Length Right Foot Step Completely clears floor Height Left Foot Step Does not pass stance foot Length Left Foot Step Completely clears floor Height Step Description Step Symmetry Step length not equal Step Continuity Steps appear continuous Gait Description Path Description Mild/moderate deviation Trunk Description Marked sway or uses aide Walking Stance Heels apart Scoring and Interpretation Tinetti Composite 15 Score (points) Interpretation of High risk for falls(< 19) Scores PT-OP-E Functional Tests Start: 01/29/25 10:30 Freq: Status: Active Protocol: Document 01/29/25 10:56 LFG (Rec: 01/29/25 12:00 [facility] [id number]) Functional Tests Five Times Sit to Stand Test Score 25.64 sec Comments UE use to get up, multiple attempts to get up Timed Up and Go (TUG) Score 24.64 sec - 3 trial avg Comments 1st trial - 26.7s 2nd - 25.8s 3rd - 21.4s TUG Impairment 100% Impaired (Score 20) Rating PT-OP-G Mobility & Gait Start: 01/29/25 10:30 Freq: Status: Active Protocol: Document 01/29/25 10:56 LFG (Rec: 01/29/25 12:00 [facility] [id number]) OP Mobility Evaluation Transfers Sit to Stand Occasionally requires multiple attempts. R knee valgus more extreme when not using hands to stand. OP Gait Assessment Gait Gait Assistance Independent Required: Able to Maintain Yes Weight Bearing Status During Gait Assistive Devices Assistive Device Straight Cane Gait Deviations General Gait Pattern Decreased Stride Length,Lateral Trunk Lean,Wide Based Gait Factors Limiting Gait Function Factors Limiting Decreased Activity Tolerance,Decreased Strength, Gait Function Difficulty Following Directions,Poor Balance Comments Gait Comments Cane occasionally touches the ground, mostly held up by patient. Does not use cane at home, only outside. PT-OP-M Strength Start: 01/29/25 10:30 Freq: Status: Active Protocol: Document 01/29/25 10:56 LFG (Rec: 01/29/25 12:00 [facility] [id number]) Hip Strength Hip Manual Muscle Testing Right Flexion (L2) 4- Good- Abduction 3+ Fair+ External Rotation 4- Good- Internal Rotation 4- Good- Comments unable to test extension - pt unable to lay prone unable to test adduction - pt trouble following directions trouble following directions in abduction/ER/IR Left Flexion (L2) 4 Good Abduction 4- Good- External Rotation 4+ Good+ Internal Rotation 4+ Good+ Comments unable to test extension - pt unable to lay prone unable to test adduction - pt trouble following directions trouble following directions in abduction/ER/IR Knee Strength Knee Manual Muscle Testing Right Flexion (S2) 3+ Fair+ Extension (L3) 4+ Good+ Comments pt had trouble following directions in testing flexion Left Flexion (S2) 4- Good- Extension (L3) 4+ Good+ Comments pt had trouble following directions in testing flexion Ankle/Foot Strength Ankle and Foot Manual Muscle Testing Right Dorsiflexion (L4) 4 Good Plantarflexion (S1) 5 Normal Left Dorsiflexion (L4) 4+ Good+ Plantarflexion (S1) 5 Normal PT-OP-Q Treatments Start: 01/29/25 10:30 Freq: Status: Active Protocol: Document 02/04/25 17:00 DCW (Rec: 02/04/25 17:44 DCW [id number]) Cardio Equipment Recumbent Stepper (Sci-Fit) Duration (Minutes) 5 Resistance 3 Seat Position 14 Gym Equipment Shuttle Recovery single leg squat Details cued L knee adduction/ R knee lateral midline alignement with foot Resistance 37# 1 navy bilateral squat Resistance 75 # 3 navy bands Reps/Time x20 Therapeutic Exercises Other Exercises Resisted Ambulation Other Exercise Name Resisted Side-stepping Resistance Lv 1 loop Neuro Re-Education Treatment Balance Activities SLS Details SLS Equipment // bars Hurdles Details Hurdles Equipment // bars Comments Forward, Side=stepping Toe-taps Details Toe-taps Surface AirEx Equipment 8 step Foam Details Tandem, NBOS (X1, X2) Surface AirEx PT-OP-T Assessment and Plan Start: 01/29/25 10:30 Freq: Status: Active Protocol: Document 02/04/25 17:00 DCW (Rec: 02/04/25 17:44 DCW [id number]) Physical Therapy Assessment Impairments Impairments Activity Tolerance,Balance,Coordination,Edema, Functional Activities,Functional Mobility,Gait,Pain, Strength Goals Three Impairment 5x STS score 25.64 sec w/ UE use Assisted Living Executive Director Goal (LTG) Patient to increase his 5x STS score to >20 sec w/o UE use to improve ability in getting up from a chair/bed LTG Duration 04/19/25 Two Impairment TUG score 24.64 sec - 3 trial avg Assisted Living Executive Director Goal (LTG) Patient will improve TUG score >20 sec w/o AD to reduce fall risk while ambulating out in the community and at home LTG Duration 04/19/25 One Impairment Patient does not have appropriate HEP Short Term Goal (STG Patient will have a cohesive appropriate HEP that they ) adhere to independently STG Duration 02/19/25 Assessment Summary Assessment Pt slightly impulsive today with activities, however was following direction better today. Did fairly well with balance challenges, continue to focus on strengthening, balance, and improving activity tolerance. Physical Therapy Plan Frequency and Duration Frequency of 2x/Week Treatment Plan of Care Start 01/29/25 Date Plan of Care End 04/19/25 Date Therapeutic Interventions Therapeutic Balance Training,Coordination Training,Gait Training, Interventions Home Exercise Program,Joint Mobilizations,Manual Therapy,Neuromuscular Re-education,Patient/Caregiver Education,Self-Care/Home Management,Soft Tissue Mobilization,Therapeutic Activities,Therapeutic Exercises Modalities Biofeedback,Cold Pack/Ice Massage,Electric Stimulation, Hot Packs,Infrared Therapy,Traction- Mechanical, Ultrasound Next Visit Focus/Plan Next Note Type Treatment Note Next Visit Plan Begin static/dynamic balance training, gait training, and bilateral LE strengthening. Begin building HEP and potentially talking to patient about using AD more frequently
--- NOTE | 2025-02-08 12:15 | PT.OTN ---
Current Diagnoses Other spondylosis with radiculopathy, lumbosacral region (02/08/25) Spinal stenosis, cervical region (02/08/25) Unsteadiness on feet (02/08/25) Repeated falls (02/08/25) Weakness (02/08/25) History of falling (02/08/25) Arthrodesis status (02/08/25) Physical Therapy Treatment Note PT-OP-A Visit Information Start: 01/29/25 10:30 Freq: Status: Active Protocol: Document 02/08/25 11:30 DCW (Rec: 02/08/25 12:15 DCW [id number]) Out-Patient Physical Therapy Visit Information Visit Information Visit Type Treatment Note Visit Start Time 11:30 Visit Stop Time 12:15 Visit Number 3 Number of CAMP DINING ROOM ATTENDANT Visits 0 Evaluation Information Evaluation Date 01/29/25 PT-OP-B Current Condition Start: 01/29/25 10:30 Freq: Status: Active Protocol: Document 01/29/25 10:56 LFG (Rec: 01/29/25 10:37 LFG [id number]) Current Condition History of Current Condition Current Complaints Balance and fall risk History of Current Patient is a 84 year old who was seen earlier this year Condition for complaints of balance and falls but discontinued PT due other health concerns. PT reports that his most recent fall was 3 weeks ago while working at home in his lawn/yard and still has black/blue bruising on his R hip. X-rays reveal no fracture from the fall but still is still experiencing hip pain. Prior to this fall he states having 3 other falls one of which was when he was out having lunch with his friends and stepping down a curb. Pt states that he's not aware what is causing his falls but denies losing consciousness. Reports having trouble with steps. Has a covered wound behind his L ankle. Previously had injections for his back pain that he reports was completely resolved. Presented to PT with a cane and states that he only uses it when he leaves home, but still tries not to use it when out in the community because he doesn't want to appear old. Prior Treatments and Shoulder and Hip replacement Tests Treatment Goals Patient/Caregiver To improve his balance and reduce frequency and risk of Goals falling so that he can take out garbage cans instead of his . PT-OP-C Subjective Start: 01/29/25 10:30 Freq: Status: Active Protocol: Document 02/08/25 11:30 DCW (Rec: 02/08/25 12:15 DCW [id number]) OP-PT Subjective Patient Comments Patient Comments I'm up, I'm here, I had a good weekend, so I'm pretty good. PT-OP-D Balance Start: 01/29/25 10:30 Freq: Status: Active Protocol: Document 01/29/25 10:56 LFG (Rec: 01/29/25 12:00 LFG [id number]) Crouch Balance Assessment Evaluation Sitting to Standing Independent w/Hands Ability Unsupported Stance Supervision- 2 minutes Sitting Unsupported, Supervision- 2 minutes Feet on Floor Standing to Sitting Independent, Uncontrolled Ability Transfer Ability Safely, Hand Use Unsupported Stance- Supervision, 10 seconds Eyes Closed Unsupported Stance- Supervision to maintain Eyes Open Reaching Forward Supervision Needed Standing Pick- Up Object From Supervision Floor Look Behind Shoulder Turns Sideways Only - Standing Turning 360 Degrees Supervision/Verbal Cues Unsupported Stance, 2 Steps w/Minimum Assist Alternating Feet on Stair Unsupported Tandem Assist to Step-15 seconds Stance Unilateral Leg Lifts Leg/Unable to Hold Stance Total Score Crouch Total Score ( 29 out of 56 points) Crouch Impairment 40 to 59% Impaired (Score 23-33) Rating Tinetti Balance Assessment Sitting Balance Sitting Balance Steady, safe Arising from Chair Ability to Arise Able, w/o using arms Attempts to Arise Able, requires >1 attempt Standing Balance Immediate Standing Steady w/o support Balance Standing Balance Steady, wide stance Nudged Response Staggers, catches self Standing with Eyes Steady Closed Turning Step Pattern Turning Discontinuous steps 360 Degrees Stability Turning Unsteady, grabs/staggers 360 Degrees Sitting Down Sitting Down Uses arms or unsteady Gait and Step Initiation of Gait No hesitancy Right Foot Step Does not pass stance ft. Length Right Foot Step Completely clears floor Height Left Foot Step Does not pass stance foot Length Left Foot Step Completely clears floor Height Step Description Step Symmetry Step length not equal Step Continuity Steps appear continuous Gait Description Path Description Mild/moderate deviation Trunk Description Marked sway or uses aide Walking Stance Heels apart Scoring and Interpretation Tinetti Composite 15 Score (points) Interpretation of High risk for falls(< 19) Scores PT-OP-E Functional Tests Start: 01/29/25 10:30 Freq: Status: Active Protocol: Document 01/29/25 10:56 LFG (Rec: 01/29/25 12:00 [facility] [id number]) Functional Tests Five Times Sit to Stand Test Score 25.64 sec Comments UE use to get up, multiple attempts to get up Timed Up and Go (TUG) Score 24.64 sec - 3 trial avg Comments 1st trial - 26.7s 2nd - 25.8s 3rd - 21.4s TUG Impairment 100% Impaired (Score 20) Rating PT-OP-G Mobility & Gait Start: 01/29/25 10:30 Freq: Status: Active Protocol: Document 01/29/25 10:56 LFG (Rec: 01/29/25 12:00 [facility] [id number]) OP Mobility Evaluation Transfers Sit to Stand Occasionally requires multiple attempts. R knee valgus more extreme when not using hands to stand. OP Gait Assessment Gait Gait Assistance Independent Required: Able to Maintain Yes Weight Bearing Status During Gait Assistive Devices Assistive Device Straight Cane Gait Deviations General Gait Pattern Decreased Stride Length,Lateral Trunk Lean,Wide Based Gait Factors Limiting Gait Function Factors Limiting Decreased Activity Tolerance,Decreased Strength, Gait Function Difficulty Following Directions,Poor Balance Comments Gait Comments Cane occasionally touches the ground, mostly held up by patient. Does not use cane at home, only outside. PT-OP-M Strength Start: 01/29/25 10:30 Freq: Status: Active Protocol: Document 01/29/25 10:56 LFG (Rec: 01/29/25 12:00 [facility] [id number]) Hip Strength Hip Manual Muscle Testing Right Flexion (L2) 4- Good- Abduction 3+ Fair+ External Rotation 4- Good- Internal Rotation 4- Good- Comments unable to test extension - pt unable to lay prone unable to test adduction - pt trouble following directions trouble following directions in abduction/ER/IR Left Flexion (L2) 4 Good Abduction 4- Good- External Rotation 4+ Good+ Internal Rotation 4+ Good+ Comments unable to test extension - pt unable to lay prone unable to test adduction - pt trouble following directions trouble following directions in abduction/ER/IR Knee Strength Knee Manual Muscle Testing Right Flexion (S2) 3+ Fair+ Extension (L3) 4+ Good+ Comments pt had trouble following directions in testing flexion Left Flexion (S2) 4- Good- Extension (L3) 4+ Good+ Comments pt had trouble following directions in testing flexion Ankle/Foot Strength Ankle and Foot Manual Muscle Testing Right Dorsiflexion (L4) 4 Good Plantarflexion (S1) 5 Normal Left Dorsiflexion (L4) 4+ Good+ Plantarflexion (S1) 5 Normal PT-OP-Q Treatments Start: 01/29/25 10:30 Freq: Status: Active Protocol: Document 02/08/25 11:30 DCW (Rec: 02/08/25 12:15 DCW [id number]) Cardio Equipment Recumbent Stepper (Sci-Fit) Duration (Minutes) 5 Resistance 3 Seat Position 14 Gym Equipment Shuttle Recovery single leg squat Resistance 37# (1 navy) bilateral squat Resistance 75 # (3 navy) Reps/Time x20 Shuttle Balance Red Reps/Duration WBOS Comments unilateral UE support Therapeutic Exercises Sidelying Exercises Clamshell Sidelying Exercise Clamshell Name Side right Standing Exercises Hip Extension Standing Exercise Hip Extension Name Side bilateral Resistance Lv 2 Other Exercises Resisted Ambulation Other Exercise Name Resisted Side-stepping Resistance Lv 2 loop Neuro Re-Education Treatment Balance Activities Toe-taps Details Toe-taps Surface AirEx Equipment 8 step Foam Details NBOS (EO/EC) Surface AirEx PT-OP-T Assessment and Plan Start: 01/29/25 10:30 Freq: Status: Active Protocol: Document 02/08/25 11:30 DCW (Rec: 02/08/25 12:15 DCW [id number]) Physical Therapy Assessment Impairments Impairments Activity Tolerance,Balance,Coordination,Edema, Functional Activities,Functional Mobility,Gait,Pain, Strength Goals Three Impairment 5x STS score 25.64 sec w/ UE use Utility Mechanic Supervisor Goal (LTG) Patient to increase his 5x STS score to >20 sec w/o UE use to improve ability in getting up from a chair/bed LTG Duration 04/19/25 Two Impairment TUG score 24.64 sec - 3 trial avg Prison Goal (LTG) Patient will improve TUG score >20 sec w/o AD to reduce fall risk while ambulating out in the community and at home LTG Duration 04/19/25 One Impairment Patient does not have appropriate HEP Short Term Goal (STG Patient will have a cohesive appropriate HEP that they ) adhere to independently STG Duration 02/19/25 Assessment Summary Assessment Pt motivated to continue exercises at home, provided with handout for timbo, hopeful it will help stabilize hip and decrease internal rotation of leg during gait. Physical Therapy Plan Frequency and Duration Frequency of 2x/Week Treatment Plan of Care Start 01/29/25 Date Plan of Care End 04/19/25 Date Therapeutic Interventions Therapeutic Balance Training,Coordination Training,Gait Training, Interventions Home Exercise Program,Joint Mobilizations,Manual Therapy,Neuromuscular Re-education,Patient/Caregiver Education,Self-Care/Home Management,Soft Tissue Mobilization,Therapeutic Activities,Therapeutic Exercises Modalities Biofeedback,Cold Pack/Ice Massage,Electric Stimulation, Hot Packs,Infrared Therapy,Traction- Mechanical, Ultrasound Next Visit Focus/Plan Next Note Type Treatment Note Next Visit Plan Begin static/dynamic balance training, gait training, and bilateral LE strengthening. Begin building HEP and potentially talking to patient about using AD more frequently
--- NOTE | 2025-02-17 16:44 | PT.OTN ---
Current Diagnoses Other spondylosis with radiculopathy, lumbosacral region (02/17/25) Spinal stenosis, cervical region (02/17/25) Unsteadiness on feet (02/17/25) Repeated falls (02/17/25) Weakness (02/17/25) History of falling (02/17/25) Arthrodesis status (02/17/25) Physical Therapy Treatment Note PT-OP-A Visit Information Start: 01/29/25 10:30 Freq: Status: Active Protocol: Document 02/17/25 14:28 NBM (Rec: 02/17/25 16:44 NBM Laptop) Out-Patient Physical Therapy Visit Information Visit Information Visit Type Treatment Note Visit Start Time 14:33 Visit Stop Time 15:20 Visit Number 4 Number of HOOP 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 PT reports that his most recent fall was 3 weeks ago while working at home in his lawn/yard and still has black/blue bruising on his R hip. X-rays reveal no fracture from the fall but still is still experiencing hip pain. Prior to this fall he states having 3 other falls one of which was when he was out having lunch with his friends and stepping down a curb. Pt states that he's not aware what is causing his falls but denies losing consciousness. Reports having trouble with steps. Has a covered wound behind his L ankle. Previously had injections for his back pain that he reports was completely resolved. Presented to PT with a cane and states that he only uses it when he leaves home, but still tries not to use it when out in the community because he doesn't want to appear old. Prior Treatments and Shoulder and Hip replacement Tests Treatment Goals Patient/Caregiver To improve his balance and reduce frequency and risk of Goals falling so that he can take out garbage cans instead of his . PT-OP-C Subjective Start: 01/29/25 10:30 Freq: Status: Active Protocol: Document 02/17/25 14:28 NBM (Rec: 02/17/25 16:44 NBM Laptop) OP-PT Subjective Patient Comments Patient Comments Troy reports he did treadmill at gym this morning. He's been doing his single leg balance every day and tandem balance once in a while but it's boring. He's not doing sidelying clamshell much because he doesn't understand the point of it. He's using cane in community except at gym or in house. His driveway has a slope and he took trash out for the other day because her back was sore. PT-OP-D Balance Start: 01/29/25 10:30 Freq: Status: Active Protocol: Document 01/29/25 10:56 LFG (Rec: 01/29/25 12:00 LFG [id number]) Crouch Balance Assessment Evaluation Sitting to Standing Independent w/Hands Ability Unsupported Stance Supervision- 2 minutes Sitting Unsupported, Supervision- 2 minutes Feet on Floor Standing to Sitting Independent, Uncontrolled Ability Transfer Ability Safely, Hand Use Unsupported Stance- Supervision, 10 seconds Eyes Closed Unsupported Stance- Supervision to maintain Eyes Open Reaching Forward Supervision Needed Standing Pick- Up Object From Supervision Floor Look Behind Shoulder Turns Sideways Only - Standing Turning 360 Degrees Supervision/Verbal Cues Unsupported Stance, 2 Steps w/Minimum Assist Alternating Feet on Stair Unsupported Tandem Assist to Step-15 seconds Stance Unilateral Leg Lifts Leg/Unable to Hold Stance Total Score Crouch Total Score ( 29 out of 56 points) Crouch Impairment 40 to 59% Impaired (Score 23-33) Rating Tinetti Balance Assessment Sitting Balance Sitting Balance Steady, safe Arising from Chair Ability to Arise Able, w/o using arms Attempts to Arise Able, requires >1 attempt Standing Balance Immediate Standing Steady w/o support Balance Standing Balance Steady, wide stance Nudged Response Staggers, catches self Standing with Eyes Steady Closed Turning Step Pattern Turning Discontinuous steps 360 Degrees Stability Turning Unsteady, grabs/staggers 360 Degrees Sitting Down Sitting Down Uses arms or unsteady Gait and Step Initiation of Gait No hesitancy Right Foot Step Does not pass stance ft. Length Right Foot Step Completely clears floor Height Left Foot Step Does not pass stance foot Length Left Foot Step Completely clears floor Height Step Description Step Symmetry Step length not equal Step Continuity Steps appear continuous Gait Description Path Description Mild/moderate deviation Trunk Description Marked sway or uses aide Walking Stance Heels apart Scoring and Interpretation Tinetti Composite 15 Score (points) Interpretation of High risk for falls(< 19) Scores PT-OP-E Functional Tests Start: 01/29/25 10:30 Freq: Status: Active Protocol: Document 01/29/25 10:56 LFG (Rec: 01/29/25 12:00 [facility] [id number]) Functional Tests Five Times Sit to Stand Test Score 25.64 sec Comments UE use to get up, multiple attempts to get up Timed Up and Go (TUG) Score 24.64 sec - 3 trial avg Comments 1st trial - 26.7s 2nd - 25.8s 3rd - 21.4s TUG Impairment 100% Impaired (Score 20) Rating PT-OP-G Mobility & Gait Start: 01/29/25 10:30 Freq: Status: Active Protocol: Document 01/29/25 10:56 LFG (Rec: 01/29/25 12:00 [facility] [id number]) OP Mobility Evaluation Transfers Sit to Stand Occasionally requires multiple attempts. R knee valgus more extreme when not using hands to stand. OP Gait Assessment Gait Gait Assistance Independent Required: Able to Maintain Yes Weight Bearing Status During Gait Assistive Devices Assistive Device Straight Cane Gait Deviations General Gait Pattern Decreased Stride Length,Lateral Trunk Lean,Wide Based Gait Factors Limiting Gait Function Factors Limiting Decreased Activity Tolerance,Decreased Strength, Gait Function Difficulty Following Directions,Poor Balance Comments Gait Comments Cane occasionally touches the ground, mostly held up by patient. Does not use cane at home, only outside. PT-OP-M Strength Start: 01/29/25 10:30 Freq: Status: Active Protocol: Document 01/29/25 10:56 LFG (Rec: 01/29/25 12:00 LF [id number]) Hip Strength Hip Manual Muscle Testing Right Flexion (L2) 4- Good- Abduction 3+ Fair+ External Rotation 4- Good- Internal Rotation 4- Good- Comments unable to test extension - pt unable to lay prone unable to test adduction - pt trouble following directions trouble following directions in abduction/ER/IR Left Flexion (L2) 4 Good Abduction 4- Good- External Rotation 4+ Good+ Internal Rotation 4+ Good+ Comments unable to test extension - pt unable to lay prone unable to test adduction - pt trouble following directions trouble following directions in abduction/ER/IR Knee Strength Knee Manual Muscle Testing Right Flexion (S2) 3+ Fair+ Extension (L3) 4+ Good+ Comments pt had trouble following directions in testing flexion Left Flexion (S2) 4- Good- Extension (L3) 4+ Good+ Comments pt had trouble following directions in testing flexion Ankle/Foot Strength Ankle and Foot Manual Muscle Testing Right Dorsiflexion (L4) 4 Good Plantarflexion (S1) 5 Normal Left Dorsiflexion (L4) 4+ Good+ Plantarflexion (S1) 5 Normal PT-OP-Q Treatments Start: 01/29/25 10:30 Freq: Status: Active Protocol: Document 02/17/25 14:28 NBM (Rec: 02/17/25 16:44 NBM Laptop) Cardio Equipment Recumbent Stepper (Sci-Fit) Duration (Minutes) 6 Resistance 3 Seat Position 14 Other edu to pt to back seat up after 3-4 min at gym to increase HS range/stretch Therapeutic Exercises Sidelying Exercises Clamshell Sidelying Exercise Clamshell Name Side bilateral Resistance gravity Equipment Used pillow between LEs Reps/Minutes x10 ea Comments vc ecc control; pain apprehension R- ROM improves w/ cues for breathwork Gait Training Gait Activity SPC Description SPC in LUE: 1.fwd ambulation to mirror 2.indoors/ outdoors 2-pt step through Level of Assistance Alejandrina with decline on gravel > CGA Surface carpet, tile, pavement, gravel incline/decline Distance/Duration 940 ft (in 240 ft, out 600 ft, in 100 ft); ambulation between activities Treatment Focus safety, cane placement, patterning, activity tolerance Comments seated rest and water break immediately after. pt demos carrying SPC in RUE initially. Cane height shortened one level. Pt demos 2-pt step through patterning SPC in LUE ambulating out of clinic to car end of session. Neuro Re-Education Treatment Balance Activities tandem Details tandem stance B Surface firm Equipment handrail, GB CGA Reps/Duration 30s trials Comments cues for gluteal activation, upright posture, squaring hips and excessive rotation of trunk SLS Details SLS Surface firm Equipment handrail, GB CGA Reps/Duration multiple trials Comments progressively decreased UE support from 2 DEVELOPMENT TEAM LEAD>1 DEVELOPMENT TEAM LEAD> 2- finger touch>1 finger touch>no UE support/ proprioception cues for gluteal activation, upright posture Self-Care/Home Management Treatment Education Patient Education Body Mechanics,Fall Risk,Home Exercise Program,Pain Management,Posture,Safety Other Education -Edu to pt to back recumbent seat up after 3-4 min at gym to increase HS range/stretch with warm up -Education for upright posture with emphasis on gluteal activation. -Discussion of barriers to HEP and cane use and edu to pt re: integration of proprioception, vestibular, and vision systems for balance and safety; gluteal medius m . anatomy and role in gait mechanics and balance for strengthening/hip stability and performing sidelying clamshell; role of breathwork for pain apprehension w/ ex's; and appropriate use of SPC in LUE for RUE support for safer community ambulation. PT-OP-T Assessment and Plan Start: 01/29/25 10:30 Freq: Status: Active Protocol: Document 02/17/25 14:28 NBM (Rec: 02/17/25 16:44 NBM Laptop) Physical Therapy Assessment Goals Three Impairment 5x STS score 25.64 sec w/ UE use Linux Architect Goal (LTG) Patient to increase his 5x STS score to >20 sec w/o UE use to improve ability in getting up from a chair/bed LTG Duration 04/19/25 Two Impairment TUG score 24.64 sec - 3 trial avg Linux Architect Goal (LTG) Patient will improve TUG score >20 sec w/o AD to reduce fall risk while ambulating out in the community and at home LTG Duration 04/19/25 One Impairment Patient does not have appropriate HEP Short Term Goal (STG Patient will have a cohesive appropriate HEP that they ) adhere to independently STG Duration 02/19/25 Assessment Summary Assessment End of session when stepping backwards (same as pt's last fall stepping back over pressure sealer and tester cord) pt has one posterior loss of balance without AD with self recovery. Significant time spent discussing barriers to HEP and cane use, with resulting edu to pt regarding: integration of proprioception, vestibular, and vision systems for balance and safety; gluteal medius m. anatomy and role in gait mechanics and balance for strengthening/hip stability and performing sidelying clamshell; role of breathwork for pain apprehension with ex's; and appropriate use of single point cane in L upper extremity for R lower extremity support for safer community ambulation; pt expressing improved motivation and understanding of HEP and positive feedback response for all. Pt presents carrying SPC in R UE; SPC height adjusted and after cueing and education pt crystal improved 2-pt patterning w/ SPC in LUE ambulating out of clinic to car end of session. He requires cues with decline on gravel for closer cane placement, and for breath with sidelying clamshell due to pain apprehension on R. Physical Therapy Plan Frequency and Duration Frequency of 2x/Week Treatment Plan of Care Start 01/29/25 Date Plan of Care End 04/19/25 Date Therapeutic Interventions Therapeutic Balance Training,Coordination Training,Gait Training, Interventions Home Exercise Program,Joint Mobilizations,Manual Therapy,Neuromuscular Re-education,Patient/Caregiver Education,Self-Care/Home Management,Soft Tissue Mobilization,Therapeutic Activities,Therapeutic Exercises Modalities Biofeedback,Cold Pack/Ice Massage,Electric Stimulation, Hot Packs,Infrared Therapy,Traction- Mechanical, Ultrasound Next Visit Focus/Plan Next Note Type Treatment Note Next Visit Plan Next: check pt consistency with HEP. Continue gait training SPC in LUE, consider initiating stair training . Continue static/dynamic balance training, gait training , and bilateral LE strengthening. Begin building HEP and continue talking to patient about using AD more frequently (possible HEP: SLS, tandem stance, sidelying clamshell, sidesteps, hip extension)
--- NOTE | 2025-02-19 13:47 | PT.OTN ---
Addendum entered and electronically signed by Trell Haile, PT 02/19/25 14:48: PT direct supervision and direction to student PT Vernon Carrillo throughout session Original Note: Current Diagnoses Other spondylosis with radiculopathy, lumbosacral region (02/19/25) Spinal stenosis, cervical region (02/19/25) Unsteadiness on feet (02/19/25) Repeated falls (02/19/25) Weakness (02/19/25) History of falling (02/19/25) Arthrodesis status (02/19/25) Physical Therapy Treatment Note PT-OP-A Visit Information Start: 01/29/25 10:30 Freq: Status: Active Protocol: Document 02/19/25 09:47 LFG (Rec: 02/19/25 10:30 LFG [id number]) Out-Patient Physical Therapy Visit Information Visit Information Visit Type Treatment Note Visit Start Time 09:47 Visit Stop Time 10:27 Visit Number 5 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 PT reports that his most recent fall was 3 weeks ago while working at home in his lawn/yard and still has black/blue bruising on his R hip. X-rays reveal no fracture from the fall but still is still experiencing hip pain. Prior to this fall he states having 3 other falls one of which was when he was out having lunch with his friends and stepping down a curb. Pt states that he's not aware what is causing his falls but denies losing consciousness. Reports having trouble with steps. Has a covered wound behind his L ankle. Previously had injections for his back pain that he reports was completely resolved. Presented to PT with a cane and states that he only uses it when he leaves home, but still tries not to use it when out in the community because he doesn't want to appear old. Prior Treatments and Shoulder and Hip replacement Tests Treatment Goals Patient/Caregiver To improve his balance and reduce frequency and risk of Goals falling so that he can take out garbage cans instead of his . PT-OP-C Subjective Start: 01/29/25 10:30 Freq: Status: Active Protocol: Document 02/19/25 09:47 LFG (Rec: 02/19/25 10:32 LFG [id number]) OP-PT Subjective Patient Comments Patient Comments Patient reports feeling okay this morning, son is visiting from [place] this weekend. No changes in his sxs reported. Goes to the gym regularly, walks and works UEs but does not work LEs. PT-OP-D Balance Start: 01/29/25 10:30 Freq: Status: Active Protocol: Document 01/29/25 10:56 LFG (Rec: 01/29/25 12:00 LFG [id number]) Crouch Balance Assessment Evaluation Sitting to Standing Independent w/Hands Ability Unsupported Stance Supervision- 2 minutes Sitting Unsupported, Supervision- 2 minutes Feet on Floor Standing to Sitting Independent, Uncontrolled Ability Transfer Ability Safely, Hand Use Unsupported Stance- Supervision, 10 seconds Eyes Closed Unsupported Stance- Supervision to maintain Eyes Open Reaching Forward Supervision Needed Standing Pick- Up Object From Supervision Floor Look Behind Shoulder Turns Sideways Only - Standing Turning 360 Degrees Supervision/Verbal Cues Unsupported Stance, 2 Steps w/Minimum Assist Alternating Feet on Stair Unsupported Tandem Assist to Step-15 seconds Stance Unilateral Leg Lifts Leg/Unable to Hold Stance Total Score Crouch Total Score ( 29 out of 56 points) Crouch Impairment 40 to 59% Impaired (Score 23-33) Rating Tinetti Balance Assessment Sitting Balance Sitting Balance Steady, safe Arising from Chair Ability to Arise Able, w/o using arms Attempts to Arise Able, requires >1 attempt Standing Balance Immediate Standing Steady w/o support Balance Standing Balance Steady, wide stance Nudged Response Staggers, catches self Standing with Eyes Steady Closed Turning Step Pattern Turning Discontinuous steps 360 Degrees Stability Turning Unsteady, grabs/staggers 360 Degrees Sitting Down Sitting Down Uses arms or unsteady Gait and Step Initiation of Gait No hesitancy Right Foot Step Does not pass stance ft. Length Right Foot Step Completely clears floor Height Left Foot Step Does not pass stance foot Length Left Foot Step Completely clears floor Height Step Description Step Symmetry Step length not equal Step Continuity Steps appear continuous Gait Description Path Description Mild/moderate deviation Trunk Description Marked sway or uses aide Walking Stance Heels apart Scoring and Interpretation Tinetti Composite 15 Score (points) Interpretation of High risk for falls(< 19) Scores PT-OP-E Functional Tests Start: 01/29/25 10:30 Freq: Status: Active Protocol: Document 01/29/25 10:56 LFG (Rec: 01/29/25 12:00 [facility] [id number]) Functional Tests Five Times Sit to Stand Test Score 25.64 sec Comments UE use to get up, multiple attempts to get up Timed Up and Go (TUG) Score 24.64 sec - 3 trial avg Comments 1st trial - 26.7s 2nd - 25.8s 3rd - 21.4s TUG Impairment 100% Impaired (Score 20) Rating PT-OP-G Mobility & Gait Start: 01/29/25 10:30 Freq: Status: Active Protocol: Document 01/29/25 10:56 LFG (Rec: 01/29/25 12:00 [facility] [id number]) OP Mobility Evaluation Transfers Sit to Stand Occasionally requires multiple attempts. R knee valgus more extreme when not using hands to stand. OP Gait Assessment Gait Gait Assistance Independent Required: Able to Maintain Yes Weight Bearing Status During Gait Assistive Devices Assistive Device Straight Cane Gait Deviations General Gait Pattern Decreased Stride Length,Lateral Trunk Lean,Wide Based Gait Factors Limiting Gait Function Factors Limiting Decreased Activity Tolerance,Decreased Strength, Gait Function Difficulty Following Directions,Poor Balance Comments Gait Comments Cane occasionally touches the ground, mostly held up by patient. Does not use cane at home, only outside. PT-OP-M Strength Start: 01/29/25 10:30 Freq: Status: Active Protocol: Document 01/29/25 10:56 LFG (Rec: 01/29/25 12:00 [facility] [id number]) Hip Strength Hip Manual Muscle Testing Right Flexion (L2) 4- Good- Abduction 3+ Fair+ External Rotation 4- Good- Internal Rotation 4- Good- Comments unable to test extension - pt unable to lay prone unable to test adduction - pt trouble following directions trouble following directions in abduction/ER/IR Left Flexion (L2) 4 Good Abduction 4- Good- External Rotation 4+ Good+ Internal Rotation 4+ Good+ Comments unable to test extension - pt unable to lay prone unable to test adduction - pt trouble following directions trouble following directions in abduction/ER/IR Knee Strength Knee Manual Muscle Testing Right Flexion (S2) 3+ Fair+ Extension (L3) 4+ Good+ Comments pt had trouble following directions in testing flexion Left Flexion (S2) 4- Good- Extension (L3) 4+ Good+ Comments pt had trouble following directions in testing flexion Ankle/Foot Strength Ankle and Foot Manual Muscle Testing Right Dorsiflexion (L4) 4 Good Plantarflexion (S1) 5 Normal Left Dorsiflexion (L4) 4+ Good+ Plantarflexion (S1) 5 Normal PT-OP-Q Treatments Start: 01/29/25 10:30 Freq: Status: Active Protocol: Document 02/19/25 09:47 LFG (Rec: 02/19/25 10:30 LFG [id number]) Gym Equipment Shuttle Recovery single leg squat Details cues to drive with heel, mid back pain reported Resistance 50# (1 navy) Reps/Time x15 bilateral squat Details cues for more depth, slow/control Resistance 75 # (3 navy) Reps/Time x25 Therapeutic Exercises Standing Exercises Resisted stepping Standing Exercise F/L Name Resistance L2 Reps/Minutes // bars, minimal UE use, SBA Hip Extension Standing Exercise Hip Extension + abd Name Side bilateral Resistance Lv 2 Equipment Used // bars, held on entire time B UE Comments cues for upright posture, control ecc Neuro Re-Education Treatment Balance Activities cone tap s Details Cone taps Surface AirEx Equipment // bars, CGA Comments cues for upright posture, held on w/ 1 hand tandem Details tandem stance holds + ambulation Equipment // bars, CGA Comments cues for gluteal activation, upright posture, squaring hips and excessive rotation of christoph Hurdles Details Hurdles F/L Equipment // bars, held on Comments SBA Self-Care/Home Management Treatment Education Patient Education Home Exercise Program Other Education Given L2 TB for HEP PT-OP-T Assessment and Plan Start: 01/29/25 10:30 Freq: Status: Active Protocol: Document 02/19/25 09:47 LFG (Rec: 02/19/25 10:30 LFG [id number]) Physical Therapy Assessment Impairments Impairments Activity Tolerance,Balance,Coordination,Edema, Functional Activities,Functional Mobility,Gait,Pain, Strength Goals Three Impairment 5x STS score 25.64 sec w/ UE use Account Receivable Clerk Goal (LTG) Patient to increase his 5x STS score to >20 sec w/o UE use to improve ability in getting up from a chair/bed LTG Duration 04/19/25 Two Impairment TUG score 24.64 sec - 3 trial avg Penitentiary Goal (LTG) Patient will improve TUG score >20 sec w/o AD to reduce fall risk while ambulating out in the community and at home LTG Duration 04/19/25 One Impairment Patient does not have appropriate HEP Short Term Goal (STG Patient will have a cohesive appropriate HEP that they ) adhere to independently STG Duration 02/19/25 Assessment Summary Assessment Pt reported feeling like he had a good workout at the end of the session. Pt frequently used 1 hand for support while not using hands was significantly more challenging. Has been doing tandem stance holds at home on stable surface which he seems to be improving at. Did attempt tandem stance holds with eyes closed and no UE help which did challenge him more. Continue to focus on strengthening, balance, and improving activity tolerance. Physical Therapy Plan Frequency and Duration Frequency of 2x/Week Treatment Plan of Care Start 01/29/25 Date Plan of Care End 04/19/25 Date Therapeutic Interventions Therapeutic Balance Training,Coordination Training,Gait Training, Interventions Home Exercise Program,Joint Mobilizations,Manual Therapy,Neuromuscular Re-education,Patient/Caregiver Education,Self-Care/Home Management,Soft Tissue Mobilization,Therapeutic Activities,Therapeutic Exercises Modalities Biofeedback,Cold Pack/Ice Massage,Electric Stimulation, Hot Packs,Infrared Therapy,Traction- Mechanical, Ultrasound Next Visit Focus/Plan Next Note Type Treatment Note Next Visit Plan Next: check pt consistency with HEP. Continue gait training SPC in LUE, consider initiating stair training . Continue static/dynamic balance training, gait training , and bilateral LE strengthening. Begin building HEP and continue talking to patient about using AD more frequently (possible HEP: SLS, tandem stance, sidelying clamshell, sidesteps, hip extension)
--- NOTE | 2025-02-23 14:27 | PT.OTN ---
Current Diagnoses Other spondylosis with radiculopathy, lumbosacral region (02/23/25) Spinal stenosis, cervical region (02/23/25) Unsteadiness on feet (02/23/25) Repeated falls (02/23/25) Weakness (02/23/25) History of falling (02/23/25) Arthrodesis status (02/23/25) Physical Therapy Treatment Note PT-OP-A Visit Information Start: 01/29/25 10:30 Freq: Status: Active Protocol: Document 02/23/25 13:14 NBM (Rec: 02/23/25 14:25 NBM Laptop) Out-Patient Physical Therapy Visit Information Visit Information Visit Type Treatment Note Visit Start Time 13:05 Visit Stop Time 13:50 Visit Number 6 Number of DRY PRESS OPERATOR Visits 1 Evaluation Information Evaluation Date 01/29/25 PT-OP-B Current Condition Start: 01/29/25 10:30 Freq: Status: Active Protocol: Document 01/29/25 10:56 LFG (Rec: 01/29/25 10:37 LFG [id number]) Current Condition History of Current Condition Current Complaints Balance and fall risk History of Current Patient is a 84 year old who was seen earlier this year Condition for complaints of balance and falls but discontinued PT due other health concerns. PT reports that his most recent fall was 3 weeks ago while working at home in his lawn/yard and still has black/blue bruising on his R hip. X-rays reveal no fracture from the fall but still is still experiencing hip pain. Prior to this fall he states having 3 other falls one of which was when he was out having lunch with his friends and stepping down a curb. Pt states that he's not aware what is causing his falls but denies losing consciousness. Reports having trouble with steps. Has a covered wound behind his L ankle. Previously had injections for his back pain that he reports was completely resolved. Presented to PT with a cane and states that he only uses it when he leaves home, but still tries not to use it when out in the community because he doesn't want to appear old. Prior Treatments and Shoulder and Hip replacement Tests Treatment Goals Patient/Caregiver To improve his balance and reduce frequency and risk of Goals falling so that he can take out garbage cans instead of his . PT-OP-C Subjective Start: 01/29/25 10:30 Freq: Status: Active Protocol: Document 02/23/25 13:14 NBM (Rec: 02/23/25 14:25 NBM Laptop) OP-PT Subjective Patient Comments Patient Comments Troy reports he woke up with some back stiffness. He's doing the ex's and he's already been to the gym today. He's using his cane in his left hand now and uses it to walk into gym and then leaves it in lobby; he's not sure how to use the cane for curbs and he gets nervous with curbs because he fell once. PT-OP-D Balance Start: 01/29/25 10:30 Freq: Status: Active Protocol: Document 01/29/25 10:56 LFG (Rec: 01/29/25 12:00 LFG [id number]) Crouch Balance Assessment Evaluation Sitting to Standing Independent w/Hands Ability Unsupported Stance Supervision- 2 minutes Sitting Unsupported, Supervision- 2 minutes Feet on Floor Standing to Sitting Independent, Uncontrolled Ability Transfer Ability Safely, Hand Use Unsupported Stance- Supervision, 10 seconds Eyes Closed Unsupported Stance- Supervision to maintain Eyes Open Reaching Forward Supervision Needed Standing Pick- Up Object From Supervision Floor Look Behind Shoulder Turns Sideways Only - Standing Turning 360 Degrees Supervision/Verbal Cues Unsupported Stance, 2 Steps w/Minimum Assist Alternating Feet on Stair Unsupported Tandem Assist to Step-15 seconds Stance Unilateral Leg Lifts Leg/Unable to Hold Stance Total Score Crouch Total Score ( 29 out of 56 points) Crouch Impairment 40 to 59% Impaired (Score 23-33) Rating Tinetti Balance Assessment Sitting Balance Sitting Balance Steady, safe Arising from Chair Ability to Arise Able, w/o using arms Attempts to Arise Able, requires >1 attempt Standing Balance Immediate Standing Steady w/o support Balance Standing Balance Steady, wide stance Nudged Response Staggers, catches self Standing with Eyes Steady Closed Turning Step Pattern Turning Discontinuous steps 360 Degrees Stability Turning Unsteady, grabs/staggers 360 Degrees Sitting Down Sitting Down Uses arms or unsteady Gait and Step Initiation of Gait No hesitancy Right Foot Step Does not pass stance ft. Length Right Foot Step Completely clears floor Height Left Foot Step Does not pass stance foot Length Left Foot Step Completely clears floor Height Step Description Step Symmetry Step length not equal Step Continuity Steps appear continuous Gait Description Path Description Mild/moderate deviation Trunk Description Marked sway or uses aide Walking Stance Heels apart Scoring and Interpretation Tinetti Composite 15 Score (points) Interpretation of High risk for falls(< 19) Scores PT-OP-E Functional Tests Start: 01/29/25 10:30 Freq: Status: Active Protocol: Document 01/29/25 10:56 LFG (Rec: 01/29/25 12:00 [facility] [id number]) Functional Tests Five Times Sit to Stand Test Score 25.64 sec Comments UE use to get up, multiple attempts to get up Timed Up and Go (TUG) Score 24.64 sec - 3 trial avg Comments 1st trial - 26.7s 2nd - 25.8s 3rd - 21.4s TUG Impairment 100% Impaired (Score 20) Rating PT-OP-G Mobility & Gait Start: 01/29/25 10:30 Freq: Status: Active Protocol: Document 01/29/25 10:56 LFG (Rec: 01/29/25 12:00 [facility] [id number]) OP Mobility Evaluation Transfers Sit to Stand Occasionally requires multiple attempts. R knee valgus more extreme when not using hands to stand. OP Gait Assessment Gait Gait Assistance Independent Required: Able to Maintain Yes Weight Bearing Status During Gait Assistive Devices Assistive Device Straight Cane Gait Deviations General Gait Pattern Decreased Stride Length,Lateral Trunk Lean,Wide Based Gait Factors Limiting Gait Function Factors Limiting Decreased Activity Tolerance,Decreased Strength, Gait Function Difficulty Following Directions,Poor Balance Comments Gait Comments Cane occasionally touches the ground, mostly held up by patient. Does not use cane at home, only outside. PT-OP-M Strength Start: 01/29/25 10:30 Freq: Status: Active Protocol: Document 01/29/25 10:56 LFG (Rec: 01/29/25 12:00 [facility] [id number]) Hip Strength Hip Manual Muscle Testing Right Flexion (L2) 4- Good- Abduction 3+ Fair+ External Rotation 4- Good- Internal Rotation 4- Good- Comments unable to test extension - pt unable to lay prone unable to test adduction - pt trouble following directions trouble following directions in abduction/ER/IR Left Flexion (L2) 4 Good Abduction 4- Good- External Rotation 4+ Good+ Internal Rotation 4+ Good+ Comments unable to test extension - pt unable to lay prone unable to test adduction - pt trouble following directions trouble following directions in abduction/ER/IR Knee Strength Knee Manual Muscle Testing Right Flexion (S2) 3+ Fair+ Extension (L3) 4+ Good+ Comments pt had trouble following directions in testing flexion Left Flexion (S2) 4- Good- Extension (L3) 4+ Good+ Comments pt had trouble following directions in testing flexion Ankle/Foot Strength Ankle and Foot Manual Muscle Testing Right Dorsiflexion (L4) 4 Good Plantarflexion (S1) 5 Normal Left Dorsiflexion (L4) 4+ Good+ Plantarflexion (S1) 5 Normal PT-OP-Q Treatments Start: 01/29/25 10:30 Freq: Status: Active Protocol: Document 02/23/25 13:14 NBM (Rec: 02/23/25 14:25 NBM Laptop) Gym Equipment Shuttle Recovery single leg squat Details cues breath, full ROM, drive with heel; RLE dc'd d/t mid back pain reported Resistance 50# (2 navy) Shuttle Recovery Stable Platform Reps/Time x20 ea bilateral squat Details cues for breathwork, full ROM, slow/control Resistance 75 # (3 navy) Shuttle Recovery Stable Platform Reps/Time x25 Therapeutic Exercises Sitting Exercises HS stretch Sitting Exercise hamstring stretch Name Side bilateral Reps/Minutes 2 x5 breaths each Comments L>R tightness; cues set up, painfree Standing Exercises Resisted stepping Standing Exercise F/B/L Name Resistance L2 Tb at ankles Equipment Used // bars, minimal UE use, SBA Reps/Minutes x2 ea Comments cues for step width, increasing knee flexion bwd, neutral foot, posture Gait Training Gait Activity Stairs Description 1. 4>6 training stairs 2. 4 step 3. outdoor curb Device Used SPC in LUE, Level of Assistance SBA>modA Surface firm Distance/Duration 1. 4 stairs x2; 6 stairs x3 2. Step up/down x5 3. curb step up/down x6 Comments pt demos improved upright posture, confidence, and control with cues and less assist needed with each curb repetition. He requires moderate cues for cane placement with ascend. SPC Description 2-pt step-thru: ambulation in clinic between activities ; out to curb Device Used SPC in LUE Level of Assistance SBA Surface carpet, tile, pavement Distance/Duration ~ 200 ft Treatment Focus safety, cane placement, patterning, activity tolerance Comments occasional cues for sequencing Neuro Re-Education Treatment Balance Activities Hurdles Details Hurdles F/L Equipment // bars, B BUSINESS SEGMENT MANAGER> L BUSINESS SEGMENT MANAGER only Reps/Duration 6 x10 ft Comments CGA>SBA cues for upright posture, increased knee flexion. Self-Care/Home Management Treatment Education Patient Education Body Mechanics,Home Exercise Program,Pain Management, Posture Other Education Edu to pt w/ visual aids re: TrA m. anatomy and interrelationship with diaphragm and pelvic floor, and importance of not holding breath with exercises and activities to improve core recruitment for low back pain. Edu to pt for painfree stretching and importance of stretching as well as strengthening. PT-OP-T Assessment and Plan Start: 01/29/25 10:30 Freq: Status: Active Protocol: Document 02/23/25 13:14 NBM (Rec: 02/23/25 14:25 NBM Laptop) Physical Therapy Assessment Goals Three Impairment 5x STS score 25.64 sec w/ UE use Care Home Goal (LTG) Patient to increase his 5x STS score to >20 sec w/o UE use to improve ability in getting up from a chair/bed LTG Duration 04/19/25 Two Impairment TUG score 24.64 sec - 3 trial avg Care Home Goal (LTG) Patient will improve TUG score >20 sec w/o AD to reduce fall risk while ambulating out in the community and at home LTG Duration 04/19/25 One Impairment Patient does not have appropriate HEP Short Term Goal (STG Patient will have a cohesive appropriate HEP that they ) adhere to independently STG Duration 02/19/25 Assessment Summary Assessment Bill initially demos apprehension with navigating curbs with SPC but demos improved upright posture, confidence, and control with cueing and less assist needed with each curb repetition. He also demos improved self-awareness for stepping over hurdles after cues for increased R>L hip flexion to avoid R circumduction compensation and maintain upright posture . Physical Therapy Plan Frequency and Duration Frequency of 2x/Week Treatment Plan of Care Start 01/29/25 Date Plan of Care End 04/19/25 Date Therapeutic Interventions Therapeutic Balance Training,Coordination Training,Gait Training, Interventions Home Exercise Program,Joint Mobilizations,Manual Therapy,Neuromuscular Re-education,Patient/Caregiver Education,Self-Care/Home Management,Soft Tissue Mobilization,Therapeutic Activities,Therapeutic Exercises Modalities Biofeedback,Cold Pack/Ice Massage,Electric Stimulation, Hot Packs,Infrared Therapy,Traction- Mechanical, Ultrasound Next Visit Focus/Plan Next Note Type Treatment Note Next Visit Plan Next: check pt consistency with HEP. Continue gait training SPC in LUE, consider initiating stair training . Continue static/dynamic balance training, gait training , and bilateral LE strengthening. Begin building HEP and continue talking to patient about using AD more frequently (possible HEP: SLS, tandem stance, sidelying clamshell, sidesteps, hip extension)
--- NOTE | 2025-02-25 17:44 | PT.OTN ---
Current Diagnoses Other spondylosis with radiculopathy, lumbosacral region (02/25/25) Spinal stenosis, cervical region (02/25/25) Unsteadiness on feet (02/25/25) Repeated falls (02/25/25) Weakness (02/25/25) History of falling (02/25/25) Arthrodesis status (02/25/25) Physical Therapy Treatment Note PT-OP-A Visit Information Start: 01/29/25 10:30 Freq: Status: Active Protocol: Document 02/25/25 17:00 DCW (Rec: 02/25/25 17:43 DCW [id number]) Out-Patient Physical Therapy Visit Information Visit Information Visit Type Treatment Note Visit Start Time 17:00 Visit Stop Time 17:45 Visit Number 7 Number of FUR REPAIRER Visits 0 Evaluation Information Evaluation Date 01/29/25 PT-OP-B Current Condition Start: 01/29/25 10:30 Freq: Status: Active Protocol: Document 01/29/25 10:56 LFG (Rec: 01/29/25 10:37 LFG [id number]) Current Condition History of Current Condition Current Complaints Balance and fall risk History of Current Patient is a 84 year old who was seen earlier this year Condition for complaints of balance and falls but discontinued PT due other health concerns. PT reports that his most recent fall was 3 weeks ago while working at home in his lawn/yard and still has black/blue bruising on his R hip. X-rays reveal no fracture from the fall but still is still experiencing hip pain. Prior to this fall he states having 3 other falls one of which was when he was out having lunch with his friends and stepping down a curb. Pt states that he's not aware what is causing his falls but denies losing consciousness. Reports having trouble with steps. Has a covered wound behind his L ankle. Previously had injections for his back pain that he reports was completely resolved. Presented to PT with a cane and states that he only uses it when he leaves home, but still tries not to use it when out in the community because he doesn't want to appear old. Prior Treatments and Shoulder and Hip replacement Tests Treatment Goals Patient/Caregiver To improve his balance and reduce frequency and risk of Goals falling so that he can take out garbage cans instead of his . PT-OP-C Subjective Start: 01/29/25 10:30 Freq: Status: Active Protocol: Document 02/25/25 17:00 DCW (Rec: 02/25/25 17:43 DCW [id number]) OP-PT Subjective Patient Comments Patient Comments Pt reports he went to his ebal today who told him that he is standing a lot taller than last time you were in. PT-OP-D Balance Start: 01/29/25 10:30 Freq: Status: Active Protocol: Document 01/29/25 10:56 LFG (Rec: 01/29/25 12:00 LFG [id number]) Crouch Balance Assessment Evaluation Sitting to Standing Independent w/Hands Ability Unsupported Stance Supervision- 2 minutes Sitting Unsupported, Supervision- 2 minutes Feet on Floor Standing to Sitting Independent, Uncontrolled Ability Transfer Ability Safely, Hand Use Unsupported Stance- Supervision, 10 seconds Eyes Closed Unsupported Stance- Supervision to maintain Eyes Open Reaching Forward Supervision Needed Standing Pick- Up Object From Supervision Floor Look Behind Shoulder Turns Sideways Only - Standing Turning 360 Degrees Supervision/Verbal Cues Unsupported Stance, 2 Steps w/Minimum Assist Alternating Feet on Stair Unsupported Tandem Assist to Step-15 seconds Stance Unilateral Leg Lifts Leg/Unable to Hold Stance Total Score Crouch Total Score ( 29 out of 56 points) Crouch Impairment 40 to 59% Impaired (Score 23-33) Rating Tinetti Balance Assessment Sitting Balance Sitting Balance Steady, safe Arising from Chair Ability to Arise Able, w/o using arms Attempts to Arise Able, requires >1 attempt Standing Balance Immediate Standing Steady w/o support Balance Standing Balance Steady, wide stance Nudged Response Staggers, catches self Standing with Eyes Steady Closed Turning Step Pattern Turning Discontinuous steps 360 Degrees Stability Turning Unsteady, grabs/staggers 360 Degrees Sitting Down Sitting Down Uses arms or unsteady Gait and Step Initiation of Gait No hesitancy Right Foot Step Does not pass stance ft. Length Right Foot Step Completely clears floor Height Left Foot Step Does not pass stance foot Length Left Foot Step Completely clears floor Height Step Description Step Symmetry Step length not equal Step Continuity Steps appear continuous Gait Description Path Description Mild/moderate deviation Trunk Description Marked sway or uses aide Walking Stance Heels apart Scoring and Interpretation Tinetti Composite 15 Score (points) Interpretation of High risk for falls(< 19) Scores PT-OP-E Functional Tests Start: 01/29/25 10:30 Freq: Status: Active Protocol: Document 01/29/25 10:56 LFG (Rec: 01/29/25 12:00 [facility] [id number]) Functional Tests Five Times Sit to Stand Test Score 25.64 sec Comments UE use to get up, multiple attempts to get up Timed Up and Go (TUG) Score 24.64 sec - 3 trial avg Comments 1st trial - 26.7s 2nd - 25.8s 3rd - 21.4s TUG Impairment 100% Impaired (Score 20) Rating PT-OP-G Mobility & Gait Start: 01/29/25 10:30 Freq: Status: Active Protocol: Document 01/29/25 10:56 LFG (Rec: 01/29/25 12:00 [facility] [id number]) OP Mobility Evaluation Transfers Sit to Stand Occasionally requires multiple attempts. R knee valgus more extreme when not using hands to stand. OP Gait Assessment Gait Gait Assistance Independent Required: Able to Maintain Yes Weight Bearing Status During Gait Assistive Devices Assistive Device Straight Cane Gait Deviations General Gait Pattern Decreased Stride Length,Lateral Trunk Lean,Wide Based Gait Factors Limiting Gait Function Factors Limiting Decreased Activity Tolerance,Decreased Strength, Gait Function Difficulty Following Directions,Poor Balance Comments Gait Comments Cane occasionally touches the ground, mostly held up by patient. Does not use cane at home, only outside. PT-OP-M Strength Start: 01/29/25 10:30 Freq: Status: Active Protocol: Document 01/29/25 10:56 LFG (Rec: 01/29/25 12:00 [facility] [id number]) Hip Strength Hip Manual Muscle Testing Right Flexion (L2) 4- Good- Abduction 3+ Fair+ External Rotation 4- Good- Internal Rotation 4- Good- Comments unable to test extension - pt unable to lay prone unable to test adduction - pt trouble following directions trouble following directions in abduction/ER/IR Left Flexion (L2) 4 Good Abduction 4- Good- External Rotation 4+ Good+ Internal Rotation 4+ Good+ Comments unable to test extension - pt unable to lay prone unable to test adduction - pt trouble following directions trouble following directions in abduction/ER/IR Knee Strength Knee Manual Muscle Testing Right Flexion (S2) 3+ Fair+ Extension (L3) 4+ Good+ Comments pt had trouble following directions in testing flexion Left Flexion (S2) 4- Good- Extension (L3) 4+ Good+ Comments pt had trouble following directions in testing flexion Ankle/Foot Strength Ankle and Foot Manual Muscle Testing Right Dorsiflexion (L4) 4 Good Plantarflexion (S1) 5 Normal Left Dorsiflexion (L4) 4+ Good+ Plantarflexion (S1) 5 Normal PT-OP-Q Treatments Start: 01/29/25 10:30 Freq: Status: Active Protocol: Document 02/25/25 17:00 DCW (Rec: 02/25/25 17:43 DCW [id number]) Gym Equipment Shuttle Recovery single leg squat Details RLE dc'd d/t mid back pain reported Resistance 50# (2 navy) Shuttle Recovery Stable Platform Reps/Time x20 L bilateral squat Resistance 75 # (3 navy) Shuttle Recovery Stable Platform Reps/Time x25 Therapeutic Exercises Sitting Exercises Ankle Pumps Sitting Exercise Seated ankle pumps Name Side bilateral HS stretch Sitting Exercise hamstring stretch Name Side bilateral Comments L>R tightness; cues set up, painfree Standing Exercises Hip Extension Standing Exercise Hip Extension + abd Name Side bilateral Resistance Lv 2 Equipment Used // bars, held on entire time B UE Comments cues for upright posture, control ecc Neuro Re-Education Treatment Balance Activities cone tap s Details Cone taps Surface firm Equipment // bars, CGA tandem Details tandem stance Equipment // bars, CGA SLS Details SLS Surface firm Equipment // bars Comments cues for decreasing UE support Hurdles Details Hurdles F/L Equipment // bars, B BILLPOSTING SUPERVISOR> L BILLPOSTING SUPERVISOR only Reps/Duration 6 x10 ft Comments CGA>SBA cues for upright posture, increased knee flexion. Foam Details NBOS (EO/EC) Surface AirEx PT-OP-T Assessment and Plan Start: 01/29/25 10:30 Freq: Status: Active Protocol: Document 02/25/25 17:00 DCW (Rec: 02/25/25 17:43 DCW [id number]) Physical Therapy Assessment Impairments Impairments Activity Tolerance,Balance,Coordination,Edema, Functional Activities,Functional Mobility,Gait,Pain, Strength Goals Three Impairment 5x STS score 25.64 sec w/ UE use Patching Machine Operator Goal (LTG) Patient to increase his 5x STS score to >20 sec w/o UE use to improve ability in getting up from a chair/bed LTG Duration 04/19/25 Two Impairment TUG score 24.64 sec - 3 trial avg Patching Machine Operator Goal (LTG) Patient will improve TUG score >20 sec w/o AD to reduce fall risk while ambulating out in the community and at home LTG Duration 04/19/25 One Impairment Patient does not have appropriate HEP Short Term Goal (STG Patient will have a cohesive appropriate HEP that they ) adhere to independently STG Duration 02/19/25 Assessment Summary Assessment Pt noted feeling his hamstrings are quite tight, admits he doesn't stretch much at home. Did well with stretching today. Balance and posture improving. Continue to focus on balance, gait, and activity tolerance. Physical Therapy Plan Frequency and Duration Frequency of 2x/Week Treatment Plan of Care Start 01/29/25 Date Plan of Care End 04/19/25 Date Therapeutic Interventions Therapeutic Balance Training,Coordination Training,Gait Training, Interventions Home Exercise Program,Joint Mobilizations,Manual Therapy,Neuromuscular Re-education,Patient/Caregiver Education,Self-Care/Home Management,Soft Tissue Mobilization,Therapeutic Activities,Therapeutic Exercises Modalities Biofeedback,Cold Pack/Ice Massage,Electric Stimulation, Hot Packs,Infrared Therapy,Traction- Mechanical, Ultrasound Next Visit Focus/Plan Next Note Type Treatment Note Next Visit Plan Next: Continue gait training SPC in LUE, consider initiating stair training. Continue static/dynamic balance training, gait training , and bilateral LE strengthening. Begin building HEP and continue talking to patient about using AD more frequently (possible HEP: SLS, tandem stance, sidelying clamshell, sidesteps, hip extension)
--- NOTE | 2025-03-02 17:12 | PT.OTN ---
Current Diagnoses Other spondylosis with radiculopathy, lumbosacral region (03/02/25) Spinal stenosis, cervical region (03/02/25) Unsteadiness on feet (03/02/25) Repeated falls (03/02/25) Weakness (03/02/25) History of falling (03/02/25) Arthrodesis status (03/02/25) Physical Therapy Treatment Note PT-OP-A Visit Information Start: 01/29/25 10:30 Freq: Status: Active Protocol: Document 03/02/25 13:59 NBM (Rec: 03/02/25 17:12 NBM Laptop) Out-Patient Physical Therapy Visit Information Visit Information Visit Type Treatment Note Visit Start Time 13:50 Visit Stop Time 14:40 Visit Number 8 Number of BLEACH PACKER Visits 1 Evaluation Information Evaluation Date 01/29/25 PT-OP-B Current Condition Start: 01/29/25 10:30 Freq: Status: Active Protocol: Document 01/29/25 10:56 LFG (Rec: 01/29/25 10:37 LFG [id number]) Current Condition History of Current Condition Current Complaints Balance and fall risk History of Current Patient is a 84 year old who was seen earlier this year Condition for complaints of balance and falls but discontinued PT due other health concerns. PT reports that his most recent fall was 3 weeks ago while working at home in his lawn/yard and still has black/blue bruising on his R hip. X-rays reveal no fracture from the fall but still is still experiencing hip pain. Prior to this fall he states having 3 other falls one of which was when he was out having lunch with his friends and stepping down a curb. Pt states that he's not aware what is causing his falls but denies losing consciousness. Reports having trouble with steps. Has a covered wound behind his L ankle. Previously had injections for his back pain that he reports was completely resolved. Presented to PT with a cane and states that he only uses it when he leaves home, but still tries not to use it when out in the community because he doesn't want to appear old. Prior Treatments and Shoulder and Hip replacement Tests Treatment Goals Patient/Caregiver To improve his balance and reduce frequency and risk of Goals falling so that he can take out garbage cans instead of his . PT-OP-C Subjective Start: 01/29/25 10:30 Freq: Status: Active Protocol: Document 03/02/25 13:59 NBM (Rec: 03/02/25 17:12 NBM Laptop) OP-PT Subjective Patient Comments Patient Comments Troy reports he did 1.5 mi on treadmill this morning at gym. He doesn't use cane at home, he uses furniture and wall instead, but he uses cane in gym parking lot because it's uneven. PT-OP-D Balance Start: 01/29/25 10:30 Freq: Status: Active Protocol: Document 01/29/25 10:56 LFG (Rec: 01/29/25 12:00 LFG [id number]) Crouch Balance Assessment Evaluation Sitting to Standing Independent w/Hands Ability Unsupported Stance Supervision- 2 minutes Sitting Unsupported, Supervision- 2 minutes Feet on Floor Standing to Sitting Independent, Uncontrolled Ability Transfer Ability Safely, Hand Use Unsupported Stance- Supervision, 10 seconds Eyes Closed Unsupported Stance- Supervision to maintain Eyes Open Reaching Forward Supervision Needed Standing Pick- Up Object From Supervision Floor Look Behind Shoulder Turns Sideways Only - Standing Turning 360 Degrees Supervision/Verbal Cues Unsupported Stance, 2 Steps w/Minimum Assist Alternating Feet on Stair Unsupported Tandem Assist to Step-15 seconds Stance Unilateral Leg Lifts Leg/Unable to Hold Stance Total Score Crouch Total Score ( 29 out of 56 points) Crouch Impairment 40 to 59% Impaired (Score 23-33) Rating Tinetti Balance Assessment Sitting Balance Sitting Balance Steady, safe Arising from Chair Ability to Arise Able, w/o using arms Attempts to Arise Able, requires >1 attempt Standing Balance Immediate Standing Steady w/o support Balance Standing Balance Steady, wide stance Nudged Response Staggers, catches self Standing with Eyes Steady Closed Turning Step Pattern Turning Discontinuous steps 360 Degrees Stability Turning Unsteady, grabs/staggers 360 Degrees Sitting Down Sitting Down Uses arms or unsteady Gait and Step Initiation of Gait No hesitancy Right Foot Step Does not pass stance ft. Length Right Foot Step Completely clears floor Height Left Foot Step Does not pass stance foot Length Left Foot Step Completely clears floor Height Step Description Step Symmetry Step length not equal Step Continuity Steps appear continuous Gait Description Path Description Mild/moderate deviation Trunk Description Marked sway or uses aide Walking Stance Heels apart Scoring and Interpretation Tinetti Composite 15 Score (points) Interpretation of High risk for falls(< 19) Scores PT-OP-E Functional Tests Start: 01/29/25 10:30 Freq: Status: Active Protocol: Document 01/29/25 10:56 LFG (Rec: 01/29/25 12:00 [facility] [id number]) Functional Tests Five Times Sit to Stand Test Score 25.64 sec Comments UE use to get up, multiple attempts to get up Timed Up and Go (TUG) Score 24.64 sec - 3 trial avg Comments 1st trial - 26.7s 2nd - 25.8s 3rd - 21.4s TUG Impairment 100% Impaired (Score 20) Rating PT-OP-G Mobility & Gait Start: 01/29/25 10:30 Freq: Status: Active Protocol: Document 01/29/25 10:56 LFG (Rec: 01/29/25 12:00 [facility] [id number]) OP Mobility Evaluation Transfers Sit to Stand Occasionally requires multiple attempts. R knee valgus more extreme when not using hands to stand. OP Gait Assessment Gait Gait Assistance Independent Required: Able to Maintain Yes Weight Bearing Status During Gait Assistive Devices Assistive Device Straight Cane Gait Deviations General Gait Pattern Decreased Stride Length,Lateral Trunk Lean,Wide Based Gait Factors Limiting Gait Function Factors Limiting Decreased Activity Tolerance,Decreased Strength, Gait Function Difficulty Following Directions,Poor Balance Comments Gait Comments Cane occasionally touches the ground, mostly held up by patient. Does not use cane at home, only outside. PT-OP-M Strength Start: 01/29/25 10:30 Freq: Status: Active Protocol: Document 01/29/25 10:56 LFG (Rec: 01/29/25 12:00 [facility] [id number]) Hip Strength Hip Manual Muscle Testing Right Flexion (L2) 4- Good- Abduction 3+ Fair+ External Rotation 4- Good- Internal Rotation 4- Good- Comments unable to test extension - pt unable to lay prone unable to test adduction - pt trouble following directions trouble following directions in abduction/ER/IR Left Flexion (L2) 4 Good Abduction 4- Good- External Rotation 4+ Good+ Internal Rotation 4+ Good+ Comments unable to test extension - pt unable to lay prone unable to test adduction - pt trouble following directions trouble following directions in abduction/ER/IR Knee Strength Knee Manual Muscle Testing Right Flexion (S2) 3+ Fair+ Extension (L3) 4+ Good+ Comments pt had trouble following directions in testing flexion Left Flexion (S2) 4- Good- Extension (L3) 4+ Good+ Comments pt had trouble following directions in testing flexion Ankle/Foot Strength Ankle and Foot Manual Muscle Testing Right Dorsiflexion (L4) 4 Good Plantarflexion (S1) 5 Normal Left Dorsiflexion (L4) 4+ Good+ Plantarflexion (S1) 5 Normal PT-OP-Q Treatments Start: 01/29/25 10:30 Freq: Status: Active Protocol: Document 03/02/25 13:59 NBM (Rec: 03/02/25 17:12 NBM Laptop) Gym Equipment Shuttle Recovery single leg squat Details Henrry Resistance 50# (2 navy) Shuttle Recovery Stable Platform Reps/Time x20 ea, cues for TrA and breath, full ROM; no back pain today bilateral squat Details cues for breathwork, full ROM, slow/control Resistance 75 # (3 navy) Shuttle Recovery Stable,Unstable Platform Reps/Time x25 Therapeutic Exercises Sitting Exercises Clamshells Side bilateral Resistance Lvl 2 Reps/Minutes 2x15 Comments vc for TrA and breath Ankle Pumps Sitting Exercise Seated ankle pumps Name Side bilateral Comments cues eccentric control HS stretch Sitting Exercise hamstring stretch Name Side bilateral Equipment Used edu for straight leg and painfree range Reps/Minutes 8-10 breath cycles Comments L>R tightness; cues set up, painfree Standing Exercises Resisted stepping Standing Exercise F/B/L Name Resistance L2 Tb at ankles Equipment Used handrail bars, minimal UE use, SBA Reps/Minutes x2 ea Comments cues for step width, increasing knee flexion bwd, neutral foot, posture Hip Extension Standing Exercise Hip Extension + abd Name Side bilateral Equipment Used // bars, held on entire time B UE Reps/Minutes x10 ea Comments cues for upright posture, control ecc Gait Training Gait Activity Stairs Description 4>6 training stairs, ascending/descending step-to Device Used SPC in LUE, GB, rail prn Level of Assistance SBA>CGA Distance/Duration 4 stairs x2; 6 stairs x3 Comments Pt requires consistent cues for sequencing, HO given. SPC Description 2-pt step-thru: ambulation in clinic Device Used SPC in LUE, mirror for upright posture Level of Assistance SBA Surface carpet, tile Distance/Duration 175 ft Treatment Focus safety, cane placement, patterning, activity tolerance Comments Cane height lowered one level and pt demos improved cane placement with ambulation and reports improved comfort. Occ cues for sequencing. Pt edu to use cane in L UE to support weaker R LE. PT-OP-T Assessment and Plan Start: 01/29/25 10:30 Freq: Status: Active Protocol: Document 03/02/25 13:59 NBM (Rec: 03/02/25 17:12 NBM Laptop) Physical Therapy Assessment Goals Three Impairment 5x STS score 25.64 sec w/ UE use Manager Administrative Services Goal (LTG) Patient to increase his 5x STS score to >20 sec w/o UE use to improve ability in getting up from a chair/bed LTG Duration 04/19/25 Two Impairment TUG score 24.64 sec - 3 trial avg Custodial Goal (LTG) Patient will improve TUG score >20 sec w/o AD to reduce fall risk while ambulating out in the community and at home LTG Duration 04/19/25 One Impairment Patient does not have appropriate HEP Short Term Goal (STG Patient will have a cohesive appropriate HEP that they ) adhere to independently STG Duration 02/19/25 Assessment Summary Assessment Treatment focus on gait and lower extremity strengthening. Cane height lowered one level and pt demos improved cane placement with ambulation and reports improved comfort. Troy carries cane initially but ambulates out of clinic using it in L upper extremity with step-thru patterning. He requires consistent cues for sequencing with stairs - HO given. Pt is educated to use cane in L UE to support weaker R lower extremity. He is able to perform single leg squats on Shuttle Recovery 50# on R lower extremity without back pain today with cues for Transverse abdominis m. activation and breathwork. Physical Therapy Plan Frequency and Duration Frequency of 2x/Week Treatment Plan of Care Start 01/29/25 Date Plan of Care End 04/19/25 Date Therapeutic Interventions Therapeutic Balance Training,Coordination Training,Gait Training, Interventions Home Exercise Program,Joint Mobilizations,Manual Therapy,Neuromuscular Re-education,Patient/Caregiver Education,Self-Care/Home Management,Soft Tissue Mobilization,Therapeutic Activities,Therapeutic Exercises Modalities Biofeedback,Cold Pack/Ice Massage,Electric Stimulation, Hot Packs,Infrared Therapy,Traction- Mechanical, Ultrasound Next Visit Focus/Plan Next Note Type Treatment Note Next Visit Plan Next: Continue gait training (stairs) SPC in LUE. Continue static/dynamic balance training, gait training , and bilateral LE strengthening. Begin building HEP and continue talking to patient about using AD more frequently (possible HEP: SLS, tandem stance, sidelying clamshell, sidesteps, hip extension)
--- NOTE | 2025-03-04 15:26 | PT.OTN ---
Current Diagnoses Other spondylosis with radiculopathy, lumbosacral region (03/04/25) Spinal stenosis, cervical region (03/04/25) Unsteadiness on feet (03/04/25) Repeated falls (03/04/25) Weakness (03/04/25) History of falling (03/04/25) Arthrodesis status (03/04/25) Physical Therapy Treatment Note PT-OP-A Visit Information Start: 01/29/25 10:30 Freq: Status: Active Protocol: Document 03/04/25 14:02 NBM (Rec: 03/04/25 15:26 NBM Laptop) Out-Patient Physical Therapy Visit Information Visit Information Visit Type Treatment Note Visit Start Time 13:55 Visit Stop Time 14:35 Visit Number 9 Number of AUTO MECHANICS INSTRUCTOR Visits 2 Evaluation Information Evaluation Date 01/29/25 PT-OP-B Current Condition Start: 01/29/25 10:30 Freq: Status: Active Protocol: Document 01/29/25 10:56 LFG (Rec: 01/29/25 10:37 LFG [id number]) Current Condition History of Current Condition Current Complaints Balance and fall risk History of Current Patient is a 84 year old who was seen earlier this year Condition for complaints of balance and falls but discontinued PT due other health concerns. PT reports that his most recent fall was 3 weeks ago while working at home in his lawn/yard and still has black/blue bruising on his R hip. X-rays reveal no fracture from the fall but still is still experiencing hip pain. Prior to this fall he states having 3 other falls one of which was when he was out having lunch with his friends and stepping down a curb. Pt states that he's not aware what is causing his falls but denies losing consciousness. Reports having trouble with steps. Has a covered wound behind his L ankle. Previously had injections for his back pain that he reports was completely resolved. Presented to PT with a cane and states that he only uses it when he leaves home, but still tries not to use it when out in the community because he doesn't want to appear old. Prior Treatments and Shoulder and Hip replacement Tests Treatment Goals Patient/Caregiver To improve his balance and reduce frequency and risk of Goals falling so that he can take out garbage cans instead of his . PT-OP-C Subjective Start: 01/29/25 10:30 Freq: Status: Active Protocol: Document 03/04/25 14:02 NBM (Rec: 03/04/25 15:26 NBM Laptop) OP-PT Subjective Patient Comments Patient Comments Bill reports no new changes. No problem after the last session. He's a bit confused on the stairs which leg to lead with. He practiced on curb with nearby and was able to complete up and down on curb a couple of times. He still gets scared thinking about when he fell on the curb once. PT-OP-D Balance Start: 01/29/25 10:30 Freq: Status: Active Protocol: Document 01/29/25 10:56 LFG (Rec: 01/29/25 12:00 LFG [id number]) Crouch Balance Assessment Evaluation Sitting to Standing Independent w/Hands Ability Unsupported Stance Supervision- 2 minutes Sitting Unsupported, Supervision- 2 minutes Feet on Floor Standing to Sitting Independent, Uncontrolled Ability Transfer Ability Safely, Hand Use Unsupported Stance- Supervision, 10 seconds Eyes Closed Unsupported Stance- Supervision to maintain Eyes Open Reaching Forward Supervision Needed Standing Pick- Up Object From Supervision Floor Look Behind Shoulder Turns Sideways Only - Standing Turning 360 Degrees Supervision/Verbal Cues Unsupported Stance, 2 Steps w/Minimum Assist Alternating Feet on Stair Unsupported Tandem Assist to Step-15 seconds Stance Unilateral Leg Lifts Leg/Unable to Hold Stance Total Score Crouch Total Score ( 29 out of 56 points) Crouch Impairment 40 to 59% Impaired (Score 23-33) Rating Tinetti Balance Assessment Sitting Balance Sitting Balance Steady, safe Arising from Chair Ability to Arise Able, w/o using arms Attempts to Arise Able, requires >1 attempt Standing Balance Immediate Standing Steady w/o support Balance Standing Balance Steady, wide stance Nudged Response Staggers, catches self Standing with Eyes Steady Closed Turning Step Pattern Turning Discontinuous steps 360 Degrees Stability Turning Unsteady, grabs/staggers 360 Degrees Sitting Down Sitting Down Uses arms or unsteady Gait and Step Initiation of Gait No hesitancy Right Foot Step Does not pass stance ft. Length Right Foot Step Completely clears floor Height Left Foot Step Does not pass stance foot Length Left Foot Step Completely clears floor Height Step Description Step Symmetry Step length not equal Step Continuity Steps appear continuous Gait Description Path Description Mild/moderate deviation Trunk Description Marked sway or uses aide Walking Stance Heels apart Scoring and Interpretation Tinetti Composite 15 Score (points) Interpretation of High risk for falls(< 19) Scores PT-OP-E Functional Tests Start: 01/29/25 10:30 Freq: Status: Active Protocol: Document 01/29/25 10:56 LFG (Rec: 01/29/25 12:00 [facility] [id number]) Functional Tests Five Times Sit to Stand Test Score 25.64 sec Comments UE use to get up, multiple attempts to get up Timed Up and Go (TUG) Score 24.64 sec - 3 trial avg Comments 1st trial - 26.7s 2nd - 25.8s 3rd - 21.4s TUG Impairment 100% Impaired (Score 20) Rating PT-OP-G Mobility & Gait Start: 01/29/25 10:30 Freq: Status: Active Protocol: Document 01/29/25 10:56 LF (Rec: 01/29/25 12:00 [facility] [id number]) OP Mobility Evaluation Transfers Sit to Stand Occasionally requires multiple attempts. R knee valgus more extreme when not using hands to stand. OP Gait Assessment Gait Gait Assistance Independent Required: Able to Maintain Yes Weight Bearing Status During Gait Assistive Devices Assistive Device Straight Cane Gait Deviations General Gait Pattern Decreased Stride Length,Lateral Trunk Lean,Wide Based Gait Factors Limiting Gait Function Factors Limiting Decreased Activity Tolerance,Decreased Strength, Gait Function Difficulty Following Directions,Poor Balance Comments Gait Comments Cane occasionally touches the ground, mostly held up by patient. Does not use cane at home, only outside. PT-OP-M Strength Start: 01/29/25 10:30 Freq: Status: Active Protocol: Document 01/29/25 10:56 LFG (Rec: 01/29/25 12:00 [facility] [id number]) Hip Strength Hip Manual Muscle Testing Right Flexion (L2) 4- Good- Abduction 3+ Fair+ External Rotation 4- Good- Internal Rotation 4- Good- Comments unable to test extension - pt unable to lay prone unable to test adduction - pt trouble following directions trouble following directions in abduction/ER/IR Left Flexion (L2) 4 Good Abduction 4- Good- External Rotation 4+ Good+ Internal Rotation 4+ Good+ Comments unable to test extension - pt unable to lay prone unable to test adduction - pt trouble following directions trouble following directions in abduction/ER/IR Knee Strength Knee Manual Muscle Testing Right Flexion (S2) 3+ Fair+ Extension (L3) 4+ Good+ Comments pt had trouble following directions in testing flexion Left Flexion (S2) 4- Good- Extension (L3) 4+ Good+ Comments pt had trouble following directions in testing flexion Ankle/Foot Strength Ankle and Foot Manual Muscle Testing Right Dorsiflexion (L4) 4 Good Plantarflexion (S1) 5 Normal Left Dorsiflexion (L4) 4+ Good+ Plantarflexion (S1) 5 Normal PT-OP-Q Treatments Start: 01/29/25 10:30 Freq: Status: Active Protocol: Document 03/04/25 14:02 NBM (Rec: 03/04/25 15:26 NBM Laptop) Gym Equipment Shuttle Recovery single leg squat Details Henrry Resistance 50# (2 navy) Shuttle Recovery Stable Platform Reps/Time x20 ea, cues for TrA and breath, full ROM; mid-back pain reported on R bilateral squat Details cues for breathwork, full ROM, LE alignment R>L Resistance 75 # (3 navy) Shuttle Recovery Stable,Unstable Platform Reps/Time x15, x15 w/ Lvl 1 Tb above knees for LE alignment Therapeutic Exercises Supine Exercises hamstring stretch Side bilateral Resistance 50# Equipment Used Shuttle Recovery Reps/Minutes 2 x1' ea Comments w/ ankle pumps Gait Training Gait Activity Stairs Description ascend/descend step-to: 1. 4>6 training stairs 2. Lobby stairs 3. Curb Device Used SPC in LUE, GB, rail prn Level of Assistance SBA>CGA Distance/Duration 4 stairs x3; 6 stairs x3, no breaks Comments Pt requires consistent cues for sequencing. Complains training stairs too small and is demos more confidence on lobby stairs. He is able to perform ascent on lobby stairs 2-pt with R handrail, 3-pt without R handrail. Initially refuses 6 curb descent attempt, but progresses incrementally from 2 to 6 x2 ascent/ descent safely. SPC Description 2-pt step-thru: ambulation indoors/outdoors to curb Device Used SPC in E Level of Assistance SBA Surface carpet, tile Distance/Duration 440 ft no breaks (130 ft, 2x85, 10 ft) Treatment Focus safety, cane placement, patterning, activity tolerance Comments Min cues for sequencing. Pt edu to use cane in L UE to support weaker R LE. Self-Care/Home Management Treatment Education Patient Education Body Mechanics,Home Exercise Program,Pain Management, Posture,Safety Other Education -Edu to pt re: relationship of stretching and strengthening for functional mobility with emphasis to pt to stretch hamstrings regularly. -Gait training for ascend/descend stairs and curb with SPC. Edu to pt R>L LE weakness, so cane in L UE, and LLE leads up steps, RLE and cane down steps. PT-OP-T Assessment and Plan Start: 01/29/25 10:30 Freq: Status: Active Protocol: Document 03/04/25 14:02 NBM (Rec: 03/04/25 15:26 NBM Laptop) Physical Therapy Assessment Goals Three Impairment 5x STS score 25.64 sec w/ UE use Care Home Goal (LTG) Patient to increase his 5x STS score to >20 sec w/o UE use to improve ability in getting up from a chair/bed LTG Duration 04/19/25 Two Impairment TUG score 24.64 sec - 3 trial avg Care Home Goal (LTG) Patient will improve TUG score >20 sec w/o AD to reduce fall risk while ambulating out in the community and at home LTG Duration 04/19/25 One Impairment Patient does not have appropriate HEP Short Term Goal (STG Patient will have a cohesive appropriate HEP that they ) adhere to independently STG Duration 02/19/25 Assessment Summary Assessment Continued treatment focus on lower extremity strengthening and gait training for ascend/descend on stairs and curb with SPC. Edu to Bill of R>L LE weakness so cane in L UE, and L LE leads up steps, RLE and cane down. With initial cues and reps Bill demos appropriate patterning for 4 steps and 6 steps. With addition of R rail pt is able to perform ascension up lobby stairs step-to 2-pt patterning instead of 3-pt, but needs 3-pt patterning without R handrail for balance. Cues descending w/ R handrail for increased L LE flexion to reduce lateral sway. He initially refuses descent of 6 outdoor curb but is able to gradually progress from 2 to 6 up/down x2. Pt completes full session without rest breaks, indicative of progressing activity tolerance. Physical Therapy Plan Frequency and Duration Frequency of 2x/Week Treatment Plan of Care Start 01/29/25 Date Plan of Care End 04/19/25 Date Therapeutic Interventions Therapeutic Balance Training,Coordination Training,Gait Training, Interventions Home Exercise Program,Joint Mobilizations,Manual Therapy,Neuromuscular Re-education,Patient/Caregiver Education,Self-Care/Home Management,Soft Tissue Mobilization,Therapeutic Activities,Therapeutic Exercises Modalities Biofeedback,Cold Pack/Ice Massage,Electric Stimulation, Hot Packs,Infrared Therapy,Traction- Mechanical, Ultrasound Next Visit Focus/Plan Next Note Type Treatment Note Next Visit Plan Next: Continue gait training (stairs) SPC in LUE. Continue static/dynamic balance training, gait training , and bilateral LE strengthening. Begin building HEP and continue talking to patient about using AD more frequently (possible HEP: SLS, tandem stance, sidelying clamshell, sidesteps, hip extension)
--- NOTE | 2025-03-26 15:46 | PT.OTN ---
Current Diagnoses Other spondylosis with radiculopathy, lumbosacral region (03/26/25) Spinal stenosis, cervical region (03/26/25) Unsteadiness on feet (03/26/25) Repeated falls (03/26/25) Weakness (03/26/25) History of falling (03/26/25) Arthrodesis status (03/26/25) Physical Therapy Treatment Note PT-OP-A Visit Information Start: 01/29/25 10:30 Freq: Status: Active Protocol: Document 03/26/25 11:05 NBM (Rec: 03/26/25 15:46 NBM Laptop) Out-Patient Physical Therapy Visit Information Visit Information Visit Type Treatment Note Visit Start Time 10:55 Visit Stop Time 11:37 Visit Number 10 Number of 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 PT reports that his most recent fall was 3 weeks ago while working at home in his lawn/yard and still has black/blue bruising on his R hip. X-rays reveal no fracture from the fall but still is still experiencing hip pain. Prior to this fall he states having 3 other falls one of which was when he was out having lunch with his friends and stepping down a curb. Pt states that he's not aware what is causing his falls but denies losing consciousness. Reports having trouble with steps. Has a covered wound behind his L ankle. Previously had injections for his back pain that he reports was completely resolved. Presented to PT with a cane and states that he only uses it when he leaves home, but still tries not to use it when out in the community because he doesn't want to appear old. Prior Treatments and Shoulder and Hip replacement Tests Treatment Goals Patient/Caregiver To improve his balance and reduce frequency and risk of Goals falling so that he can take out garbage cans instead of his . PT-OP-C Subjective Start: 01/29/25 10:30 Freq: Status: Active Protocol: Document 03/04/25 14:02 NBM (Rec: 03/04/25 15:26 NBM Laptop) OP-PT Subjective Patient Comments Patient Comments Bill reports no new changes. No problem after the last session. He's a bit confused on the stairs which leg to lead with. He practiced on curb with nearby and was able to complete up and down on curb a couple of times. He still gets scared thinking about when he fell on the curb once. PT-OP-D Balance Start: 01/29/25 10:30 Freq: Status: Active Protocol: Document 01/29/25 10:56 LFG (Rec: 01/29/25 12:00 LFG [id number]) Crouch Balance Assessment Evaluation Sitting to Standing Independent w/Hands Ability Unsupported Stance Supervision- 2 minutes Sitting Unsupported, Supervision- 2 minutes Feet on Floor Standing to Sitting Independent, Uncontrolled Ability Transfer Ability Safely, Hand Use Unsupported Stance- Supervision, 10 seconds Eyes Closed Unsupported Stance- Supervision to maintain Eyes Open Reaching Forward Supervision Needed Standing Pick- Up Object From Supervision Floor Look Behind Shoulder Turns Sideways Only - Standing Turning 360 Degrees Supervision/Verbal Cues Unsupported Stance, 2 Steps w/Minimum Assist Alternating Feet on Stair Unsupported Tandem Assist to Step-15 seconds Stance Unilateral Leg Lifts Leg/Unable to Hold Stance Total Score Crouch Total Score ( 29 out of 56 points) Crouch Impairment 40 to 59% Impaired (Score 23-33) Rating Tinetti Balance Assessment Sitting Balance Sitting Balance Steady, safe Arising from Chair Ability to Arise Able, w/o using arms Attempts to Arise Able, requires >1 attempt Standing Balance Immediate Standing Steady w/o support Balance Standing Balance Steady, wide stance Nudged Response Staggers, catches self Standing with Eyes Steady Closed Turning Step Pattern Turning Discontinuous steps 360 Degrees Stability Turning Unsteady, grabs/staggers 360 Degrees Sitting Down Sitting Down Uses arms or unsteady Gait and Step Initiation of Gait No hesitancy Right Foot Step Does not pass stance ft. Length Right Foot Step Completely clears floor Height Left Foot Step Does not pass stance foot Length Left Foot Step Completely clears floor Height Step Description Step Symmetry Step length not equal Step Continuity Steps appear continuous Gait Description Path Description Mild/moderate deviation Trunk Description Marked sway or uses aide Walking Stance Heels apart Scoring and Interpretation Tinetti Composite 15 Score (points) Interpretation of High risk for falls(< 19) Scores PT-OP-E Functional Tests Start: 01/29/25 10:30 Freq: Status: Active Protocol: Document 01/29/25 10:56 LFG (Rec: 01/29/25 12:00 [facility] [id number]) Functional Tests Five Times Sit to Stand Test Score 25.64 sec Comments UE use to get up, multiple attempts to get up Timed Up and Go (TUG) Score 24.64 sec - 3 trial avg Comments 1st trial - 26.7s 2nd - 25.8s 3rd - 21.4s TUG Impairment 100% Impaired (Score 20) Rating PT-OP-G Mobility & Gait Start: 01/29/25 10:30 Freq: Status: Active Protocol: Document 01/29/25 10:56 LF (Rec: 01/29/25 12:00 [facility] [id number]) OP Mobility Evaluation Transfers Sit to Stand Occasionally requires multiple attempts. R knee valgus more extreme when not using hands to stand. OP Gait Assessment Gait Gait Assistance Independent Required: Able to Maintain Yes Weight Bearing Status During Gait Assistive Devices Assistive Device Straight Cane Gait Deviations General Gait Pattern Decreased Stride Length,Lateral Trunk Lean,Wide Based Gait Factors Limiting Gait Function Factors Limiting Decreased Activity Tolerance,Decreased Strength, Gait Function Difficulty Following Directions,Poor Balance Comments Gait Comments Cane occasionally touches the ground, mostly held up by patient. Does not use cane at home, only outside. PT-OP-M Strength Start: 01/29/25 10:30 Freq: Status: Active Protocol: Document 01/29/25 10:56 LFG (Rec: 01/29/25 12:00 [facility] [id number]) Hip Strength Hip Manual Muscle Testing Right Flexion (L2) 4- Good- Abduction 3+ Fair+ External Rotation 4- Good- Internal Rotation 4- Good- Comments unable to test extension - pt unable to lay prone unable to test adduction - pt trouble following directions trouble following directions in abduction/ER/IR Left Flexion (L2) 4 Good Abduction 4- Good- External Rotation 4+ Good+ Internal Rotation 4+ Good+ Comments unable to test extension - pt unable to lay prone unable to test adduction - pt trouble following directions trouble following directions in abduction/ER/IR Knee Strength Knee Manual Muscle Testing Right Flexion (S2) 3+ Fair+ Extension (L3) 4+ Good+ Comments pt had trouble following directions in testing flexion Left Flexion (S2) 4- Good- Extension (L3) 4+ Good+ Comments pt had trouble following directions in testing flexion Ankle/Foot Strength Ankle and Foot Manual Muscle Testing Right Dorsiflexion (L4) 4 Good Plantarflexion (S1) 5 Normal Left Dorsiflexion (L4) 4+ Good+ Plantarflexion (S1) 5 Normal PT-OP-Q Treatments Start: 01/29/25 10:30 Freq: Status: Active Protocol: Document 03/26/25 11:05 NBM (Rec: 03/26/25 15:46 NBM Laptop) Cardio Equipment Recumbent Elliptical (NuStep) Duration (Minutes) 8 Resistance 3 Seat Position 15 Other vc full LE range, heel drive Gym Equipment Shuttle Recovery single leg squat Details Henrry Resistance 50# (2 navy) Shuttle Recovery Stable Platform Reps/Time x20 ea, cues for TrA and breath, full ROM; mid-back pain reported on R bilateral squat Details cues for breathwork, full ROM, LE alignment R>L Resistance 75 # (3 navy) Shuttle Recovery Stable,Unstable Platform Reps/Time x15 ea Sport Cord red Exercise Details 1. fwd/bwd ambulation w/ mirror x6 ea 2. 4 step up x5 ea LE leading Cord/Resistance red w/ mirror Comments CGA> Alejandrina, cues for upright posture, larger steps and SPC use in LUE Pt leads w/ RLE on step up and is cued for LLE leading which is more stable. Gait Training Gait Activity Stairs Description ascend/descend step-to: 1. 6 training stairs 2. Curb Device Used SPC in LUE, GB, rail prn Level of Assistance SBA>CGA Distance/Duration 6 stairs x2; 6 Curb up/down x5 Comments Pt demos 3-pt ascent/descent with R handrail and SPC in LUE with control. No cueing needed for curb descent/ascent - pt demos improved confidence. SPC Description 2-pt step-thru: ambulation indoors/outdoors to curb Device Used SPC in LUE Level of Assistance SBA Surface carpet, tile, pavement Distance/Duration 40 ft, 80 ft Treatment Focus safety, cane placement, patterning, upright posture, activity tolerance Comments Min cues for sequencing, consistent cues upright posture PT-OP-T Assessment and Plan Start: 01/29/25 10:30 Freq: Status: Active Protocol: Document 03/26/25 11:05 NBM (Rec: 03/26/25 15:46 NBM Laptop) Physical Therapy Assessment Goals Three Impairment 5x STS score 25.64 sec w/ UE use Faucet Polisher Goal (LTG) Patient to increase his 5x STS score to >20 sec w/o UE use to improve ability in getting up from a chair/bed LTG Duration 04/19/25 Two Impairment TUG score 24.64 sec - 3 trial avg Senior Living Goal (LTG) Patient will improve TUG score >20 sec w/o AD to reduce fall risk while ambulating out in the community and at home LTG Duration 04/19/25 One Impairment Patient does not have appropriate HEP Short Term Goal (STG Patient will have a cohesive appropriate HEP that they ) adhere to independently STG Duration 02/19/25 Assessment Summary Assessment Bill demonstrates improved confidence and balance with curb ascent/descent w/ SPC in LUE. He requires consistent cues for upright posture today, and has no pain with supine leg press when cued for core activation with breathwork. Physical Therapy Plan Frequency and Duration Frequency of 2x/Week Treatment Plan of Care Start 01/29/25 Date Plan of Care End 04/19/25 Date Therapeutic Interventions Therapeutic Balance Training,Coordination Training,Gait Training, Interventions Home Exercise Program,Joint Mobilizations,Manual Therapy,Neuromuscular Re-education,Patient/Caregiver Education,Self-Care/Home Management,Soft Tissue Mobilization,Therapeutic Activities,Therapeutic Exercises Modalities Biofeedback,Cold Pack/Ice Massage,Electric Stimulation, Hot Packs,Infrared Therapy,Traction- Mechanical, Ultrasound Next Visit Focus/Plan Next Note Type Treatment Note Next Visit Plan Next: Continue gait training (stairs) SPC in LUE. Continue static/dynamic balance training, gait training , and bilateral LE strengthening. Begin building HEP and continue talking to patient about using AD more frequently (possible HEP: SLS, tandem stance, sidelying clamshell, sidesteps, hip extension)
--- NOTE | 2025-04-23 11:07 | PT.OPDS ---
Current Diagnoses Other spondylosis with radiculopathy, lumbosacral region (03/26/25) Spinal stenosis, cervical region (03/26/25) Unsteadiness on feet (03/26/25) Repeated falls (03/26/25) Weakness (03/26/25) History of falling (03/26/25) Arthrodesis status (03/26/25) Visit Care Team Role Provider Type Perry Lamas MD Attending Provider Physician Family Provider Primary Care Provider Referring Provider Specialty: Family Practice Address: [address] [place] [address] Email: [email or web address] Visit Number Visit Number 10 Discharge Summary PT-OP-A Visit Information Start: 01/29/25 10:30 Freq: Status: Active Protocol: Document 03/26/25 11:05 NBM (Rec: 03/26/25 15:46 NBM Laptop) Out-Patient Physical Therapy Visit Information Visit Information Visit Type Treatment Note Visit Start Time 10:55 Visit Stop Time 11:37 Visit Number 10 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 PT reports that his most recent fall was 3 weeks ago while working at home in his lawn/yard and still has black/blue bruising on his R hip. X-rays reveal no fracture from the fall but still is still experiencing hip pain. Prior to this fall he states having 3 other falls one of which was when he was out having lunch with his friends and stepping down a curb. Pt states that he's not aware what is causing his falls but denies losing consciousness. Reports having trouble with steps. Has a covered wound behind his L ankle. Previously had injections for his back pain that he reports was completely resolved. Presented to PT with a cane and states that he only uses it when he leaves home, but still tries not to use it when out in the community because he doesn't want to appear old. Prior Treatments and Shoulder and Hip replacement Tests Treatment Goals Patient/Caregiver To improve his balance and reduce frequency and risk of Goals falling so that he can take out garbage cans instead of his . PT-OP-C Subjective Start: 01/29/25 10:30 Freq: Status: Active Protocol: Document 03/04/25 14:02 NBM (Rec: 03/04/25 15:26 NBM Laptop) OP-PT Subjective Patient Comments Patient Comments Troy reports no new changes. No problem after the last session. He's a bit confused on the stairs which leg to lead with. He practiced on curb with nearby and was able to complete up and down on curb a couple of times. He still gets scared thinking about when he fell on the curb once. PT-OP-D Balance Start: 01/29/25 10:30 Freq: Status: Active Protocol: Document 01/29/25 10:56 LFG (Rec: 01/29/25 12:00 LFG [id number]) Crouch Balance Assessment Evaluation Sitting to Standing Independent w/Hands Ability Unsupported Stance Supervision- 2 minutes Sitting Unsupported, Supervision- 2 minutes Feet on Floor Standing to Sitting Independent, Uncontrolled Ability Transfer Ability Safely, Hand Use Unsupported Stance- Supervision, 10 seconds Eyes Closed Unsupported Stance- Supervision to maintain Eyes Open Reaching Forward Supervision Needed Standing Pick- Up Object From Supervision Floor Look Behind Shoulder Turns Sideways Only - Standing Turning 360 Degrees Supervision/Verbal Cues Unsupported Stance, 2 Steps w/Minimum Assist Alternating Feet on Stair Unsupported Tandem Assist to Step-15 seconds Stance Unilateral Leg Lifts Leg/Unable to Hold Stance Total Score Crouch Total Score ( 29 out of 56 points) Crouch Impairment 40 to 59% Impaired (Score 23-33) Rating Tinetti Balance Assessment Sitting Balance Sitting Balance Steady, safe Arising from Chair Ability to Arise Able, w/o using arms Attempts to Arise Able, requires >1 attempt Standing Balance Immediate Standing Steady w/o support Balance Standing Balance Steady, wide stance Nudged Response Staggers, catches self Standing with Eyes Steady Closed Turning Step Pattern Turning Discontinuous steps 360 Degrees Stability Turning Unsteady, grabs/staggers 360 Degrees Sitting Down Sitting Down Uses arms or unsteady Gait and Step Initiation of Gait No hesitancy Right Foot Step Does not pass stance ft. Length Right Foot Step Completely clears floor Height Left Foot Step Does not pass stance foot Length Left Foot Step Completely clears floor Height Step Description Step Symmetry Step length not equal Step Continuity Steps appear continuous Gait Description Path Description Mild/moderate deviation Trunk Description Marked sway or uses aide Walking Stance Heels apart Scoring and Interpretation Tinetti Composite 15 Score (points) Interpretation of High risk for falls(< 19) Scores PT-OP-E Functional Tests Start: 01/29/25 10:30 Freq: Status: Active Protocol: Document 01/29/25 10:56 LFG (Rec: 01/29/25 12:00 [facility] [id number]) Functional Tests Five Times Sit to Stand Test Score 25.64 sec Comments UE use to get up, multiple attempts to get up Timed Up and Go (TUG) Score 24.64 sec - 3 trial avg Comments 1st trial - 26.7s 2nd - 25.8s 3rd - 21.4s TUG Impairment 100% Impaired (Score 20) Rating PT-OP-G Mobility & Gait Start: 01/29/25 10:30 Freq: Status: Active Protocol: Document 01/29/25 10:56 LFG (Rec: 01/29/25 12:00 [facility] [id number]) OP Mobility Evaluation Transfers Sit to Stand Occasionally requires multiple attempts. R knee valgus more extreme when not using hands to stand. OP Gait Assessment Gait Gait Assistance Independent Required: Able to Maintain Yes Weight Bearing Status During Gait Assistive Devices Assistive Device Straight Cane Gait Deviations General Gait Pattern Decreased Stride Length,Lateral Trunk Lean,Wide Based Gait Factors Limiting Gait Function Factors Limiting Decreased Activity Tolerance,Decreased Strength, Gait Function Difficulty Following Directions,Poor Balance Comments Gait Comments Cane occasionally touches the ground, mostly held up by patient. Does not use cane at home, only outside. PT-OP-M Strength Start: 01/29/25 10:30 Freq: Status: Active Protocol: Document 01/29/25 10:56 LFG (Rec: 01/29/25 12:00 [facility] [id number]) Hip Strength Hip Manual Muscle Testing Right Flexion (L2) 4- Good- Abduction 3+ Fair+ External Rotation 4- Good- Internal Rotation 4- Good- Comments unable to test extension - pt unable to lay prone unable to test adduction - pt trouble following directions trouble following directions in abduction/ER/IR Left Flexion (L2) 4 Good Abduction 4- Good- External Rotation 4+ Good+ Internal Rotation 4+ Good+ Comments unable to test extension - pt unable to lay prone unable to test adduction - pt trouble following directions trouble following directions in abduction/ER/IR Knee Strength Knee Manual Muscle Testing Right Flexion (S2) 3+ Fair+ Extension (L3) 4+ Good+ Comments pt had trouble following directions in testing flexion Left Flexion (S2) 4- Good- Extension (L3) 4+ Good+ Comments pt had trouble following directions in testing flexion Ankle/Foot Strength Ankle and Foot Manual Muscle Testing Right Dorsiflexion (L4) 4 Good Plantarflexion (S1) 5 Normal Left Dorsiflexion (L4) 4+ Good+ Plantarflexion (S1) 5 Normal PT-OP-T Assessment and Plan Start: 01/29/25 10:30 Freq: Status: Active Protocol: Document 04/23/25 11:06 DCW (Rec: 04/23/25 11:07 [facility] [id number]) Physical Therapy Assessment Goals Three Impairment 5x STS score 25.64 sec w/ UE use Experience Designer Goal (LTG) Patient to increase his 5x STS score to >20 sec w/o UE use to improve ability in getting up from a chair/bed LTG Duration 04/19/25 Two Impairment TUG score 24.64 sec - 3 trial avg Fpc Goal (LTG) Patient will improve TUG score >20 sec w/o AD to reduce fall risk while ambulating out in the community and at home LTG Duration 04/19/25 One Impairment Patient does not have appropriate HEP Short Term Goal (STG Patient will have a cohesive appropriate HEP that they ) adhere to independently STG Duration 02/19/25 Assessment Summary Assessment Pt canceled last scheduled visit, no reason provided. Did not schedule any follow-up visits, has not been seen in nearly 30 days, POC has . Pt will be discharged from skilled therapy, will require a new referral in order to return in the future if needed. Physical Therapy Plan Discharge Physical Therapy Discharge Reasons No Longer Attending PT
== END 2025-04-26 09:36 | disposition home or self-care (01) ==
LOC: PHYS 10:45
PROVIDERS: Family Provider Family Medicine; PCP Family Medicine; Referring Provider Family Medicine; Visit Provider Family Medicine
DX: M48.02 Spinal stenosis, cervical region (principal); M47.27 Other spondylosis with radiculopathy, lumbosacral region; Z98.1 Arthrodesis status; R53.1 Weakness; Z91.81 History of falling; R29.6 Repeated falls; R26.81 Unsteadiness on feet
CPT/HCPCS: 97110; 97112; 97116; 97163; 97535

== ENCOUNTER → 2025-05-11 09:17 | Outpatient (CLI) | payer MEDICARE, OTHER, SELFPAY ==
[2025-05-11 10:56] LABS: Add Manual Diff / Slide Review NO; Hematocrit 40.0 % (41-53); Hemoglobin 13.5 g/dL (13.5-17.5); Lymphocytes Absolute Auto 1300 /uL (1100-4500); Mean Corpuscular HGB Conc 33.8 % (30-36); Mean Corpuscular Hemoglobin 33.4 PG (26-34); Mean Corpuscular Volume 99.0 fL (80-100); Platelet Count 177 X10^3/uL (150-400)
[2025-05-11 11:21] LABS: Alanine Aminotransferase 18 IU/L (<50); Albumin 4.2 g/dL (3.5-5.0); Albumin Globulin Ratio 1.9 (1.0-2.8); Alkaline Phosphatase 110 U/L (38-126); Blood Urea Nitrogen 21 mg/dL (9-20); Calcium 9.5 mg/dL (8.4-10.2); Carbon Dioxide 23 mmol/L (22-32); Chloride 99 mmol/L (98-107); Estimated Glomerular Filt Rate > 60 mL/min (>60); Globulin 2.2 g/dL (1.7-4.1); Glucose 80 mg/dL (70-99); HEMOLYSIS < 15 (0-50); Potassium 4.6 mmol/L (3.4-5.1); Sodium 131 mmol/L (137-145); Total Protein 6.4 g/dL (6.3-8.2)
== END ==
PROVIDERS: Family Provider Family Medicine; PCP Family Medicine; Referring Provider Dermatology; Visit Provider Dermatology
DX: D84.9 Immunodeficiency, unspecified (principal); Z79.899 Other long term (current) drug therapy; L12.0 Bullous pemphigoid
CPT/HCPCS: 36415; 80053; 83516; 85025

== ENCOUNTER 2025-05-25 14:27 | Outpatient (CLI) | payer MEDICARE, OTHER, SELFPAY ==
[2025-05-25] VITALS (9 sets, daily range): BP systolic 147–187; BP diastolic 78–94; PULSE 54–63; RESP 14–20; TEMP 36.6; O2SAT 98–100
[2025-05-25] MEDS: MIDAZOLAM 2 MG/2 ML VIAL IV (16:14)
[2025-05-25] MEDS: BETAMETHASONE 30 MG/5 ML MDV 12 MG INJ (16:19)
--- NOTE | 2025-05-25 16:31 | PM.PROC.IR.1 ---
Date/Time/Diagnoses Date of procedure: 05/25/25 Time of procedure: 16:31 Pre-procedure diagnosis: Sacroiliac joint pain/DJD Post-procedure diagnosis: same Procedure Notes Procedure: Fluoroscopically guided contrast controlled right sacroiliac joint injection Indications: Hugo is referred by Dr. Lamas for treatment of right sacroiliac joint DJD Physician: Joce Curtis Total Fluoroscopy time (seconds): 10 Total sedation minutes: 10 Complications: none Procedure in detail & Post-procedure care: DESCRIPTION OF PROCEDURE Fluoroscopically guided, contrast controlled right sacroiliac joint injection Following review of allergies and review of potential side effects and complications, including, but not necessarily limited to, infection, allergic reaction, local tissue breakdown, temporary as well as permanent nerve injury, paralysis, stroke and possible , the patient indicated that they understood and agreed to proceed. An informed consent was signed by the patient, witnessed by a nurse, and placed in the patient's chart. Additionally, other treatment options including modalities, medications, and physical therapy were reviewed with the patient. After review of previous anaesthesic history and IV conscious sedation the patient was deemed safe to proceed with today?s procedure with IV conscious sedation as ASA class II designation. Safety time-out was performed to confirm patient ID, procedure to be performed and site of procedure. IV sedation was accomplished with a combination of 2mg of Versed was administered by the RN after DO order, titrated to patient comfort during the course of the procedure while the patient remained responsive to all verbal commands In the prone position following sterile prep and drape of the pelvic region, the hyper lucency on in the inferior aspect of the sacroiliac joint was identified fluoroscopically the skin was anesthetized be a 25 gauge 1 eventual with approximately 2 cc of 1% lidocaine solution. At this point, a 22 gauge 3 in spinal needle was atraumatically introduced and advanced under fluoroscopic guidance into the inferior aspect of the right sacroiliac joint. Following negative aspiration, approximately 0.3cc of Isovue-300 was injected confirming intra-articular placement without vascular uptake. Radiographic data, including multiple fluoroscopic views of the pelvis, reveals a spinal needle in the sacroiliac joint hyper lucent zone. Subsequent view show flow contrast tear superiorly and inferiorly within the joint capsule without vascular intrathecal uptake. At this point a total of 1cc of 0.5% Marcaine was combined with 2cc of 12mg of betamethasone was injected without incident. The procedure tolerated the procedure well without signs or symptoms of complications prior to transfer to the recovery area continued monitoring without incident. The patient was then transferred to the recovery area with a bur observed for an appropriate time after the injection. The patient reverted a vas score of 7 prior to the procedure and post-procedure vas of 1. POSTOP INSTRUCTIONS The patient was provided with a pain like to continue to record the patient's response to the target specific procedure prior to the patient's follow-up visit with the referring physician. Additionally, specific post injection care instructions and a contact number to our office were provided if concerns arise regarding the possible complications associated with procedure are suspected.
== END 2025-05-25 16:53 | disposition home or self-care (01) ==
LOC: RAD 14:28
PROVIDERS: Family Provider Family Medicine; PCP Family Medicine; Referring Provider Family Medicine; Visit Provider Physical Medicine & Rehabilitation
DX: M46.1 Sacroiliitis, not elsewhere classified (principal); M53.3 Sacrococcygeal disorders, not elsewhere classified
CPT/HCPCS: 27096; 99152; J0702; J2250

== ENCOUNTER 2025-06-10 14:09 | Emergency (ER) | payer MEDICARE, OTHER, SELFPAY ==
[2025-06-10] VITALS (14 sets, daily range): BP systolic 188–200; BP diastolic 84–138; PULSE 57–68; RESP 16–18; TEMP 36.6; O2SAT 95–99; BMI 27.8
--- NOTE | 2025-06-10 14:28 | DI.CT.S_ITS ---
PROCEDURE: CT HEAD/BRAIN WO CON
--- NOTE | 2025-06-10 14:28 | DI.CT.S_ITS ---
PROCEDURE: CT CERVICAL SPINE WO CON
--- NOTE | 2025-06-10 14:34 | ED_ITS ---
<Statement entered by Haresh Osorio DO - 06/10/25 23:37>
--- NOTE | 2025-06-10 14:34 | ED.FALL ---
HPI - Fall General Chief Complaint: Fall Stated Complaint: Fell hit head, on Blood thinners Time Seen by Provider: 06/10/25 14:12 History of Present Illness HPI Narrative: Mr. 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 Patient states that he has an unsteady gait at baseline and uses a walking stick. He was at home getting up from the couch when he was walking forward and tripped hitting his forehead on the corner of the wall. He did not lose consciousness. He has been feeling normal over the last 9 days however his called his doctor because she was worried about him due to significant bruising on his face and he was advised to come to the ED for further evaluation. At this time he has a superficial abrasion on the forehead that is healing and of the left hand and left wrist. He has bruising on the entirety of his frontal face. He denies visual disturbance, headache, nausea, vomiting, diarrhea, constipation, visual disturbance, chest pain, shortness of breath. Patient reports neck pain at night when he sleeps but no pain at this time no pain with range of motion. No numbness tingling weakness. Related Data Home Medications ?Medication ?Instructions ?Recorded ?Confirmed [PROBIOTIC] 1 cap PO QDAY ##0 11/14/17 04/21/25 mycophenolate mofetil 500 mg tablet 500 mg PO DAILY for bullous 05/27/24 04/21/25 pemphigoid mupirocin 2 % topical ointment 1 applic topical 06/22/24 04/21/25 acetaminophen 500 mg tablet 500 mg PO Q6H PRN 12/30/24 04/21/25 (Tylenol Extra Strength) Previous Rx's ?Medication ?Instructions ?Recorded warfarin 5 mg tablet See Rx Instructions .Route 10/22/24 .COMPLEX #156 tabs furosemide 20 mg tablet 20 mg PO DAILY #60 tabs 01/15/25 triamcinolone acetonide 0.1 % 1 applic topical BID #80 grams 01/15/25 topical cream primidone 50 mg tablet 25 mg (1/2 x 50 mg) PO BEDTIME #30 01/21/25 tabs calcitonin (salmon) 200 1 spray intranasal (ALT) DAILY 04/21/25 unit/actuation nasal spray sacral fx 3 months #3.7 mL doxycycline hyclate 100 mg capsule 100 mg PO BID 5 days #10 caps 06/10/25 hydrocodone 5 mg-acetaminophen 325 1 tab PO Q4-6H PRN pain #12 tabs 06/10/25 mg tablet Allergies Allergy/AdvReac Type Severity Reaction Status Date / Time No Known Drug Allergies Allergy Verified 04/21/25 08:14 Review of Systems Review of Systems ROS Unobtainable: All systems reviewed & are unremarkable except as noted in HPI and below Patient History Medical History Insomnia secondary to chronic pain Bilateral lower extremity edema Nocturnal cough Left ankle pain Sacral dysfunction Bullous pemphigoid PND (post-nasal drip) Abdominal hernia DJD of both shoulders Left shoulder pain Chronic anticoagulation Lumbosacral spondylosis with radiculopathy Facet arthropathy, multilevel Afib Liver lesion History of colon cancer (~2017) Pneumonia Small bowel obstruction Intussusception GI bleed Surgical History Status post cervical spinal fusion H/O total hip arthroplasty History of colonoscopy History of colectomy (~2017) H/O hernia repair Family History Father Hypertension Stroke Mother Heart disease Social History household members: spouse alcohol intake frequency: 0-2 drinks per day Exam Narrative Exam Narrative: GENERAL: 85 year old patient appears stated age. Well-developed patient, in no acute distress. HEAD: Normocephalic. There is a superficial, healing abrasion on the center of the forehead with ecchymosis extending from the forehead down to the periauricular regions and onto the cheeks of the face. EYES: PERRL. Extraocular motions intact. No scleral icterus. No injection or drainage. ENT: Nose without bleeding, purulent drainage. No septal hematoma. There is nasal bridge tenderness no obvious deformity. Uvula midline. Airway patent. NECK: Trachea midline. No midline cervical tenderness. Subjective pain across the shoulders without reproducible tenderness. CARDIOVASCULAR: Regular rate and irregular rhythm. No chest wall tenderness or bruising. RESPIRATORY: ?Nonlabored respirations. ?Speaking in clear, full sentences. ?Clear to auscultation. Breath sounds equal bilaterally. No wheezes, rales, or rhonchi. ? GASTROINTESTINAL: Abdomen soft, non-tender, nondistended. No abdominal bruising. EXTREMITIES: Superficial abrasion on dorsal left hand and left wrist. No tenderness to palpation of bilateral shoulders, elbows, wrists, hands, hips, knees, ankles. BACK: Nontender without deformity or crepitance. No flank tenderness. NEURO: AOx3. ?Clear speech. Ambulates using walking stick. Sensation intact to light touch in the bilateral upper and lower extremities. No pronator drift. No leg drift. SKIN: Significant facial bruising and superficial abrasion left hand. Initial Vital Signs Initial Vital Signs: Vital Signs Temperature 97.8 F 06/10/25 14:23 Pulse Rate 57 L 06/10/25 14:23 Respiratory Rate 16 06/10/25 14:23 Blood Pressure 196/84 H 06/10/25 14:23 Pulse Oximetry 97 06/10/25 14:23 Oxygen Delivery Method Room Air 06/10/25 14:23 Course Orders Ordered: ED Orders 06/10/25 14:28 CT cervical spine wo con Stat CT head/brain wo con Stat 06/10/25 14:30 CT facial bones wo con Stat 06/10/25 15:53 EKG-12 Lead Stat 06/10/25 16:07 CBC Auto Diff [Complete Blood Count AUTO DIFF] Stat CMP [Comprehensive Metabolic Panel] Stat PT [Prothrombin Time INR] Stat PTT Partial Thromboplastin Red Stat 06/10/25 16:15 XR chest 1V Stat XR pelvis 1-2V Stat 06/10/25 17:56 CT chest wo con Stat Discontinued Medications Hydrocodone Bitart/Acetaminophen (Hydrocodone/Acet 5/325 Tablet) 1 tab PO NOW ONE Stop: 06/10/25 16:34 Last Admin: 06/10/25 16:58 Dose: 1 tab Documented By: CARLOS Bacitracin (Bacitracin Oint 0.9 Gm Pckt) 1 applic TOP NOW ONE Stop: 06/10/25 14:31 Last Admin: 06/10/25 14:37 Dose: Not Given Documented By: CTS Diphtheria/Tetanus/Acell Pertussis (Tet,Diph,Pertuss(Acell),Vac/Pf 0.5 Ml Syringe) 0.5 ml IM .ONCE ONE Stop: 06/10/25 14:31 Last Admin: 06/10/25 15:22 Dose: 0.5 ml Documented By: JAZZY Doxycycline Hyclate (Doxycycline Hyclate 100 Mg Tablet) 100 mg PO NOW ONE Stop: 06/10/25 20:04 Last Admin: 06/10/25 20:09 Dose: 100 mg Vital Signs Vital signs: Vital Signs - 8 hr 06/10/25 14:23 06/10/25 16:18 06/10/25 16:37 Temperature 97.8 F Pulse Rate 57 L 58 L 58 L Respiratory Rate 16 18 Blood Pressure 196/84 H 195/93 H Pulse Oximetry 97 99 98 Oxygen Delivery Method Room Air Room Air 06/10/25 16:45 06/10/25 17:00 06/10/25 17:00 Temperature Pulse Rate 63 67 Respiratory Rate Blood Pressure 196/138 H Pulse Oximetry 98 97 Oxygen Delivery Method 06/10/25 17:15 06/10/25 17:16 06/10/25 17:16 Temperature Pulse Rate 62 68 Respiratory Rate Blood Pressure 196/98 H Pulse Oximetry 97 96 Oxygen Delivery Method 06/10/25 17:30 06/10/25 17:30 06/10/25 17:45 Temperature Pulse Rate 65 61 Respiratory Rate Blood Pressure 200/102 H Pulse Oximetry 95 98 Oxygen Delivery Method 06/10/25 17:46 06/10/25 17:46 06/10/25 17:58 Temperature Pulse Rate 63 65 Respiratory Rate Blood Pressure 191/93 H Pulse Oximetry 99 97 Oxygen Delivery Method 06/10/25 18:00 06/10/25 18:15 06/10/25 18:46 Temperature Pulse Rate Respiratory Rate Blood Pressure 188/109 H 194/104 H 194/102 H Pulse Oximetry Oxygen Delivery Method MDM - Fall Medical Records Attestation: I reviewed the patient's medical records. Lab Data 06/10/25 16:07 06/10/25 16:07 Labs: Lab Results 06/10/25 Range/Units 16:07 WBC 6.4 (4.5-11.0) X10^3/uL RBC 4.14 L (4.5-5.9) X10^6/uL Hgb 13.5 (13.5-17.5) g/dL Hct 40.2 L (41-53) % MCV 97.3 (80-100) fL MCH 32.6 (26-34) PG MCHC 33.6 (30-36) % RDW 14.0 (11.6-14.8) % Plt Count 168 (150-400) X10^3/uL Neut % (Auto) 70.7 (50-75) % Lymph % (Auto) 16.5 L (25-40) % [place] % (Auto) 10.6 (3-14) % Eos % (Auto) 1.5 L (2-4) % Baso % (Auto) 0.7 (0-2) % Neut # (Auto) 4600 (3758-9048) /uL Lymph # (Auto) 1100 (9387-0996) /uL [place] # (Auto) 700 (0-900) /uL Eos # (Auto) 100 (0-450) /uL Baso # (Auto) 0 (0-100) /uL PT 27.3 H (9.4-12.5) SECONDS INR 2.5 H (0.9-1.3) APTT 40 H (25.1-36.5) SECONDS Sodium 131 L (137-145) mmol/L Potassium 4.1 (3.4-5.1) mmol/L Chloride 99 (98-107) mmol/L Carbon Dioxide 24 (22-32) mmol/L BUN 16 (9-20) mg/dL Creatinine 0.61 L (0.66-1.25) mg/dL Estimated GFR > 60 (>60) mL/min BUN/Creatinine Ratio 26.2 H (6-22) Glucose 106 H (70-99) mg/dL Calcium 9.2 (8.4-10.2) mg/dL Total Bilirubin 0.8 (0.2-1.3) mg/dL AST 30 (17-59) IU/L ALT 19 (<50) IU/L Alkaline Phosphatase 108 (38-126) U/L Total Protein 6.9 (6.3-8.2) g/dL Albumin 4.4 (3.5-5.0) g/dL Globulin 2.5 (1.7-4.1) g/dL Albumin/Globulin Ratio 1.8 (1.0-2.8) Imaging Data Head CT: Radiologist's Impression: PROCEDURE: CT HEAD/BRAIN WO CON INDICATIONS: fall hit head on thinners TECHNIQUE: Noncontrast 4.5 mm thick angled axial sections acquired from the foramen magnum to the vertex, with coronal and sagittal reformats. For radiation dose reduction, the following was used: automated exposure control, adjustment of mA and/or kV according to patient size. COMPARISON: None. FINDINGS: Image quality: Diagnostic. CSF spaces: Basal cisterns are patent. No extra-axial fluid collections. The ventricles are symmetric in size and shape. Brain: No intracranial bleeds or mass effect. There is cerebral volume loss, with resultant ventricular and sulcal prominence. There are periventricular and deep white matter chronic small vessel ischemic changes. There is intracranial internal carotid artery atherosclerosis. Skull and face: Calvarium and visualized facial bones appear intact, without suspicious lesions. Sinuses: Visualized sinuses and mastoids are clear. IMPRESSION: No acute intracranial pathology. Dictated by: Tereso Austin M.D. on 06/10/2025 at 15:06 Approved by: Tereso Austin M.D. on 06/10/2025 at 15:07 Chest x-ray: Radiologist's Impression: PROCEDURE: XR CHEST 1V INDICATIONS: fall 9 days ago TECHNIQUE: One view of the chest was acquired. COMPARISON: None. FINDINGS: Surgical changes and devices: None. Lungs and pleura: Lungs are clear. No pleural effusions or pneumothorax. Mediastinum: Mediastinal contours appear normal. Heart size is at least moderately enlarged. Bones and chest wall: No suspicious bony lesions. Multiple right-sided rib fractures. Overlying soft tissues appear unremarkable. IMPRESSION: At least moderate cardiomegaly. Numerous right-sided rib fractures. No pneumothorax. Comment: Findings were discussed with JAMIE Bradshaw, on 06/10/2025 at 1729 hours PST Dictated by: Tereso Austin M.D. on 06/10/2025 at 17:27 Approved by: Tereso Austin M.D. on 06/10/2025 at 17:30 CT - cervical spine: Radiologist's Impression: PROCEDURE: CT CERVICAL SPINE WO CON INDICATIONS: fall hit head on thinners TECHNIQUE: Noncontrast 3 mm thick sections acquired from the skull base to the T4 level. Sagittal and coronal reformats were then constructed. For radiation dose reduction, the following was used: automated exposure control, adjustment of mA and/or kV according to patient size. COMPARISON: None. FINDINGS: Image quality: Excellent. Bones: Mildly displaced type 2 dens fracture without angulation. No other fractures or dislocations identified. Remote ACDF spanning C3 through C6. No evidence of hardware failure or loosening. Diffuse spondylitic change, with multilevel bilateral severe bony foraminal narrowing. Visualized superior ribs are intact. Soft tissues: Prevertebral soft tissues are normal in thickness. No paravertebral hematomas. No apical pneumothoraces. IMPRESSION: 1. Type 2 dens fracture. 2. Severe cervical spondylosis with significant multilevel bony foraminal narrowing. Comment: Dens fracture discussed with JAMIE Bradshaw on 06/10/2025 at 1546 hours Dictated by: Tereso Austin M.D. on 06/10/2025 at 15:44 Approved by: Tereso Austin M.D. on 06/10/2025 at 15:49 Pelvis XR: Radiologist's Impression: PROCEDURE: XR PELVIS 1-2V INDICATIONS: fall 1 week ago TECHNIQUE: 2 view(s) of the pelvis acquired. COMPARISON: None. FINDINGS: Bones: No fractures or dislocations. No suspicious bony lesions. Expected appearance of the visualized portion of a total right hip arthroplasty. The femoral stem component is incompletely visualized. Soft tissues: Visualized bowel gas pattern is normal. Prostatectomy clips. No suspicious soft tissue calcifications. IMPRESSION: No acute bony abnormality. Dictated by: Tereso Austin M.D. on 06/10/2025 at 17:31 Approved by: Tereso Austin M.D. on 06/10/2025 at 17:31 ECG Data Interpretation: ECG reveals atrial fibrillation with slow ventricular response, rate 57, QTC 434. 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 Differential diagnosis includes but is not limited to facial fracture, skull fracture, ICH, cervical strain, fracture, dislocation, contusion, abrasion, etc. On exam patient is in no acute distress, nontoxic appearing vital signs appropriate except for elevated blood pressure 186/84. Patient does have significant facial bruising. No LOC, headache, or cervical spine tenderness however he has been experiencing pain across his upper shoulder blades at night. We will obtain CT head, face, cervical spine. 1550: Received phone call from radiologist Dr. Flores the patient has a dens fracture. I also called and spoke with the surgeon on-call Dr. Agarwal who recommends neurosurgery transfer. Patient has been moved from the waiting room into a stretcher has a C-collar in place. NPO since noon today. Warfarin was taken this AM. 1700: I spoke with neurosurgeon Dr. Tomas who reviewed the patient's imaging. This time he reports a very minimally displaced, 2 mm, dens fracture without angulation. He states that this patient can be treated conservatively with a rigid cervical collar such as an [place] collar for 6 weeks with repeat x-rays at 6 weeks with spine or ortho surg. Discussed this discussion with neurosurgery with the patient and his . They are very happy with this plan he would like to go home tonight. However I simultaneously received a phone call from radiology that patient has multiple rib fractures on his chest x-ray and we will require chest CT. Repeat patient's physical exam, he has no chest wall tenderness, bruising, abdominal tenderness or bruising, he did have right-sided rib fractures a few months ago however we will proceed with a chest CT to rule out new injury. CT cervical spine final read reveals a type 2 dens fracture, severe cervical spondylosis. Facial CT reveals mildly comminuted nasal bone fracture no other facial bone fractures or mandibular fractures identified. CT head reveals no acute intracranial pathology. Pelvis x-ray reveals no acute bony abnormality. Labs reveal normal WBC count 6.4, hemoglobin 13.5 hematocrit 40.2. Platelets 168. Therapeutic INR 2.5. Baseline hyponatremia sodium 131, potassium 4.1, BUN 16 creatinine 0.61. Glucose 106. Normal LFTs. CT chest reveals healing right lateral 3rd through 8th rib fractures. No pneumothorax. ?Central bronchial thickening with a dependent secretions in the right dependent airways. Findings may indicate infectious or inflammatory bronchitis versus aspiration. Correlate risk factors for aspiration consider speech pathology if positive. Discussed with the nighttime physician Dr. Mckee. patient does report chronic mucous production which he has Mucinex for. We will treat as possible infectious bronchitis with doxycycline. We will also provide patient with incentive spirometry. Discussed workup today with the patient his extensively. He is eager to go home. We discussed his elevated blood pressure, this time as he is asymptomatic recommended continued monitoring, he does have a BP cuff at home. Discussed pain control with Tylenol, heat therapy, [place] for severe breakthrough pain, we did discuss narcotic risks. Also discussed doxycycline. Currently patient to follow up with his primary care doctor who can help him with referral to spine surgery. Discussed very strict ER return precautions. Patient verbalized understanding of all information agreeable with the plan. He is ambulatory and stable for discharge home. Discharge Plan Departure Patient Disposition: Home Clinical Impression: Anticoagulated, Elevated blood pressure reading, Bronchitis Dens fracture Qualifiers: Encounter type: initial encounter Fracture type: closed Qualified Code(s): S12.100A - Unspecified displaced fracture of second cervical vertebra, initial encounter for closed fracture Closed fracture nasal bone Qualifiers: Encounter type: initial encounter Qualified Code(s): S02.2XXA - Fracture of nasal bones, initial encounter for closed fracture Fall Qualifiers: Encounter type: initial encounter Qualified Code(s): W19.XXXA - Unspecified fall, initial encounter Instructions: DI for Cervical Neck Fracture Activity Restrictions/Additional Instructions: Dear Gilbert, Thank you for coming to the emergency department. Today you were evaluated for injuries sustained after a fall last Saturday. As we discussed, your CT scan did reveal a fracture of your C2 vertebrae. I spoke with [facility] neurosurgeon, Dr. Tomas, who recommend that you wear a rigid cervical collar for the next 6 weeks and then follow up with a spinal surgeon for repeat neck x-rays in 6 weeks. It is essential that you keep the cervical collar on at all times. Please return to the ER immediately if you develop any new or worsening symptoms such as severe pain, numbness tingling weakness in the arms or legs or any other concerns. The closest spine surgeon to this area is Dr. Adams with [facility]. Your primary care doctor will need to refer you to a spine surgeon, please schedule this follow up appointment for 6 weeks as soon as possible. You also sustained a broken nasal bone. You may follow up with ENT listed below for further management. Your chest CT revealed possible bronchitis or aspiration so we are treating you with doxycycline which is an antibiotic. Do not lie flat for 1 hour after taking this antibiotic. You have been prescribed a short course of narcotic medications. These are potentially dangerous and addictive medications that should be used carefully. While on these medications you cannot drive or operate heavy machinery. Additionally, you cannot sign legal documents or perform any duties such as this. 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 Please understand that we cannot provide further refills of narcotics or controlled substances through the ED and your pain management will need to be through your Primary Care Provider Please follow up with your primary care doctor within the next 2-3 days for ER follow-up. (If you do not have a PCP you can call [phone]. ?to schedule an appointment with an [facility] Primary Care Provider) IF YOU DEVELOP ANY NEW OR WORSENING SYMPTOMS, RETURN TO THE ER! Please read the attached instructions, they highlight more specific treatments and interventions for you at home. Thank you for letting me participate in your care, Avril Zhou PA-C Prescriptions: New hydrocodone-acetaminophen 5-325 mg tablet 1 tab PO Q4-6H PRN (Reason: pain) Qty: 12 0RF doxycycline hyclate 100 mg capsule 100 mg PO BID 5 Days Qty: 10 0RF No Action mupirocin 2 % ointment 1 applic topical [PROBIOTIC] 1 cap PO QDAY Qty: 0 warfarin 5 mg tablet See Rx Instructions .ROUTE .COMPLEX Qty: 156 3RF Protocol: Dose Management Condition: Saturday (Week One) Dose/Route: 10 mg Instruction: 2 x 5 mg tablets Condition: Saturday Dose/Route: 12.5 mg Instruction: 2.5 x 5 mg tablets Condition: Saturday Dose/Route: 10 mg Instruction: 2 x 5 mg tablets Condition: Saturday Dose/Route: 12.5 mg Instruction: 2.5 x 5 mg tablets Condition: Dose/Route: 10 mg Instruction: 2 x 5 mg tablets Condition: Saturday Dose/Route: 12.5 mg Instruction: 2.5 x 5 mg tablets Condition: Saturday Dose/Route: 10 mg Instruction: 2 x 5 mg tablets Condition: Saturday (Week Two) Dose/Route: 10 mg Instruction: 2 x 5 mg tablets Condition: Saturday Dose/Route: 12.5 mg Instruction: 2.5 x 5 mg tablets Condition: Saturday Dose/Route: 10 mg Instruction: 2 x 5 mg tablets Condition: Saturday Dose/Route: 12.5 mg Instruction: 2.5 x 5 mg tablets Condition: Dose/Route: 10 mg Instruction: 2 x 5 mg tablets Condition: Saturday Dose/Route: 12.5 mg Instruction: 2.5 x 5 mg tablets Condition: Saturday Dose/Route: 10 mg Instruction: 2 x 5 mg tablets Protocol Text: Adjustment Start Date: Saturday06/01/25 INR Value: 2.1 INR Date: 05/31/25 Recheck Date: 06/15/25 Dose Instruction: TAKE TWO AND 1/2 TABLETS BY MOUTH SATURDAY, SATURDAY AND SATURDAY. TAKE TWO TABLETS BY MOUTH ALL OTHER DAYS, OR DIRECTED. Rx Instructions: TAKE TWO AND 1/2 TABLETS BY MOUTH SATURDAY, SATURDAY AND SATURDAY. TAKE TWO TABLETS BY MOUTH ALL OTHER DAYS, OR DIRECTED. triamcinolone acetonide 0.1 % cream 1 applic topical BID MDD 2g Qty: 80 1RF Rx Instructions: apply thin layer to redness on left leg twice each day for up to two weeks primidone 50 mg tablet 25 mg PO BEDTIME Qty: 30 0RF furosemide 20 mg tablet 20 mg PO DAILY Qty: 60 5RF calcitonin (salmon) 200 unit/actuation spray,non-aerosol 1 spray intranasal (ALT) DAILY 90 Days Qty: 3.7 2RF Rx Instructions: sacral fx mycophenolate mofetil 500 mg tablet 500 mg PO DAILY Patient Comments: presently taking four 500mg tablets daily acetaminophen [Tylenol Extra Strength] 500 mg tablet 500 mg PO Q6H PRN Referrals: Johnny Moralez MD [Physician, Ear, Nose, Throat] Referral Note: comminuted nasal fracture Perry Lamas MD [Primary Care Provider, Family Practice] Stand Alone Forms: Patient Portal/API
[2025-06-10] MEDS: TET,DIPH,PERTUSS(ACELL),VAC/PF 0.5 ML SYRINGE IM (15:22)
--- NOTE | 2025-06-10 16:15 | DI.RAD.S_ITS ---
PROCEDURE: XR CHEST 1V
--- NOTE | 2025-06-10 16:15 | DI.RAD.S_ITS ---
PROCEDURE: XR PELVIS 1-2V
--- NOTE | 2025-06-10 16:16 | PC.NURSE ---
Pt states he has not numbness or tingling. States he has been walking all day. Pt able to move all extremities without issue
[2025-06-10 16:19] LABS: Add Manual Diff / Slide Review NO; Hematocrit 40.2 % (41-53); Hemoglobin 13.5 g/dL (13.5-17.5); Lymphocytes Absolute Auto 1100 /uL (1100-4500); Mean Corpuscular HGB Conc 33.6 % (30-36); Mean Corpuscular Hemoglobin 32.6 PG (26-34); Mean Corpuscular Volume 97.3 fL (80-100); Platelet Count 168 X10^3/uL (150-400)
--- NOTE | 2025-06-10 16:20 | EKG_ITS ---
[facility]
[2025-06-10 16:24] LABS: INR 2.5 (0.9-1.3); Prothrombin Time 27.3 SECONDS (9.4-12.5)
[2025-06-10 16:26] LABS: PTT Partial Thromboplastin Tim 40 SECONDS (25.1-36.5)
[2025-06-10 16:28] LABS: Alanine Aminotransferase 19 IU/L (<50); Albumin 4.4 g/dL (3.5-5.0); Albumin Globulin Ratio 1.8 (1.0-2.8); Alkaline Phosphatase 108 U/L (38-126); Blood Urea Nitrogen 16 mg/dL (9-20); Carbon Dioxide 24 mmol/L (22-32); Chloride 99 mmol/L (98-107); Estimated Glomerular Filt Rate > 60 mL/min (>60); Globulin 2.5 g/dL (1.7-4.1); HEMOLYSIS < 15 (0-50); Sodium 131 mmol/L (137-145); Total Protein 6.9 g/dL (6.3-8.2)
[2025-06-10 16:30] LABS: Calcium 9.2 mg/dL (8.4-10.2); Glucose 106 mg/dL (70-99); Potassium 4.1 mmol/L (3.4-5.1)
--- NOTE | 2025-06-10 17:56 | DI.CT.S_ITS ---
PROCEDURE: CT CHEST WO CON
[2025-06-10] MEDS: DOXYCYCLINE HYCLATE 100 MG TABLET PO (20:09)
== END 2025-06-10 20:39 | disposition home or self-care (01) ==
PROVIDERS: Emergency Provider Physician Assistant; Family Provider Family Medicine; PCP Family Medicine
DX: S02.2XXA Fracture of nasal bones, initial encounter for closed fracture (principal); S12.100A Unspecified displaced fracture of second cervical vertebra, initial encounter for closed fracture; J40 Bronchitis, not specified as acute or chronic; R03.0 Elevated blood-pressure reading, without diagnosis of hypertension; S60.512A Abrasion of left hand, initial encounter; S60.812A Abrasion of left wrist, initial encounter; M54.2 Cervicalgia; W01.190A Fall on same level from slipping, tripping and stumbling with subsequent striking against furniture, initial encounter; Z79.01 Long term (current) use of anticoagulants; Z23 Encounter for immunization
CPT/HCPCS: 70450; 70486; 71045; 71250; 72125; 72170; 80053; 85025; 85610; 85730; 90471; 93005; 99283; 99285; 90715